=== PATIENT | female | born 1940 | race Caucasian/White ===

== ENCOUNTER 2018-10-15 18:08 | Inpatient (IN) | payer BC ==
--- NOTE | 2018-10-15 19:56 | PDOC ---
History of Present Illness - General Chief Complaint: Shortness of Breath Stated Complaint: DIFFICULTY BREATHING Time Seen by Provider: 10/15/18 19:56 - History of Present Illness Initial Comments: 10/15/18 19:57 78year old female with a significant past medical history of rheumatoid arthritis on chronic steroid use, osteoporosis, hypothyroidism, and DM who presents to the ED with complaints of shortness of breath since earlier today. Was given 1 treatment of solumedrol and duoneb in ems, can breathe much better now. Admits to low grade fever of 100 earlier today, for which she took one tablet of Tylenol. Was told she had PVC's and had to miss an appointment with the inventory representative due to difficulty walking due to her arthritis. Past History - Past Medical History Allergies/Adverse Reactions: Allergies Allergy/AdvReac Type Severity Reaction Status Date / Time No Known Allergies Allergy Verified 10/15/18 18:47 Home Medications: Ambulatory Orders Insulin Lispro [Humalog] 0 unit SQ BID 09/22/15 Levothyroxine [Synthroid -] 25 mcg PO DAILY 09/22/15 Prednisone 5 mg PO DAILY 08/25/17 metFORMIN XR [Glucophage *Xr* -] 500 mg PO DAILY 08/25/17 Tofacitinib Citrate [Xeljanz] 5 mg PO DAILY 10/15/18 Cancer: No (polymyalgia) COPD: Yes CHF: No Diabetes: Yes HTN: Yes Hypercholesterolemia: Yes Thyroid Disease: Yes - Surgical History Orthopedic Surgery: Yes (LT "CLUB FOOT") - Immunization History Immunization Up to Date: Yes (FLU PNA) - Suicide/Smoking/Psychosocial Hx Smoking Status: Yes Smoking History: Never smoked Have you smoked in the past 12 months: No Number of Cigarettes Smoked Daily: 10 Information on smoking cessation initiated: No 'Breaking Loose' booklet given: 09/22/15 Hx Alcohol Use: No Drug/Substance Use Hx: No Substance Use Type: None Hx Substance Use Treatment: No Review of Systems - Review of Systems Able to Perform ROS?: Yes Is the patient limited Pashto proficient: No Constitutional: Yes: Chills HEENTM: No: Symptoms Reported Respiratory: Yes: See HPI Cardiac (ROS): No: Symptoms Reported ABD/GI: No: Symptoms Reported : No: Symptoms Reported Musculoskeletal: Yes: Other (left leg chronically atrophied. ) Integumentary: No: Symptoms Reported Neurological: No: Symptoms reported Endocrine: No: See HPI All Other Systems: Reviewed and Negative *Physical Exam - Vital Signs Last Vital Signs Temp Pulse Resp BP Pulse Ox 98.8 F 77 16 132/67 98 10/15/18 18:08 10/15/18 18:08 10/15/18 18:08 10/15/18 18:08 10/15/18 18:08 - Physical Exam General Appearance: Yes: Nourished, Appropriately Dressed. No: Apparent Distress HEENT: positive: EOMI, MELINDA, Normal ENT Inspection Neck: negative: Tender Respiratory/Chest: positive: Lungs Clear, Normal Breath Sounds. negative: Chest Tender, Respiratory Distress Cardiovascular: positive: Regular Rhythm, Regular Rate, S1, S2 Vascular Pulses: Dorsalis-Pedis (R): 2+, Doralis-Pedis (L): 2+ Gastrointestinal/Abdominal: positive: Normal Bowel Sounds, Soft. negative: Tender Musculoskeletal: positive: Normal Inspection Extremity: positive: Normal Capillary Refill, Normal Inspection Integumentary: positive: Normal Color, Dry, Warm Neurologic: positive: Fully Oriented, Alert, Normal Mood/Affect, Normal Response Moderate Sedation - Procedure Monitoring Vital Signs: Procedure Monitoring Vital Signs Temperature 98.8 F 10/15/18 18:08 Pulse Rate 77 10/15/18 18:08 Respiratory Rate 16 10/15/18 18:08 Blood Pressure 132/67 10/15/18 18:08 O2 Sat by Pulse Oximetry (%) 98 10/15/18 18:08 ED Treatment Course - LABORATORY CBC & Chemistry Diagram: 10/15/18 20:41 10/15/18 20:41 Medical Decision Making - Medical Decision Making 10/15/18 21:24 copd exacerbation vs CHF exacerbation vs pna vs PE 10/15/18 21:27 [place] much better after treatment but not at baseline yet. Will repeat duoneb, basic labs, cxr. Will send bnp to assess for possible chf exacebation. 10/15/18 22:27 CXR: mild basilar atelectasis. Found some incidental, hyponatremia. Will give bolus of ns, reassess and dispo 10/15/18 22:[address] Galan who want the patient admitted for asthma and COPD exacerbation. Patient missed several appointment with PCP due to her arthritis. Will admit. *DC/Admit/Observation/Transfer Diagnosis at time of Disposition: Asthma, COPD exacerbation - Discharge Dispostion Decision to Admit order: Yes - Referrals Referrals: Mayra Galan MD [Primary Care Provider] - - Patient Instructions - Post Discharge Activity
[2018-10-15] MEDS ORDERED: ALBUTEROL SO4 2.5/IPRATROPIUM 0.5 INH SOL 3 ML VIAL.NEB. NEB ONE ×2 (20:06→20:25)
--- NOTE | 2018-10-15 20:08 | PDOC ---
Attending Attestation - HPI HPI: 10/15/18 20:28 The patient is a 78 year old female with a significant past medical history of rheumatoid arthritis osteoporosis (on prednisone daily), hyperthyroidism, diabetes and COPD who presents to the emergency department via EMS with shortness of breath for 1 day. The patient reports that she was at home today when she began to experience difficulty breathing. As per EMS , the patient received steroids and a nebulizer treatment en route to the ED. The patient, on exam, reports that her shortness of breath has been relieved. The patient also reports some left shoulder pain which radiates to her back as well as a low grade fever at home of 100 by which she took tylenol: she states that she experienced some chills secondary to taking the tylenol. The patient denies any other symptoms. She denies any nausea, vomiting diarrhea, constipation or urinary symptoms ,she denies any chest pain, headache or dizziness. She denies any other complaints. Documentation prepared by Nalini Diaz, acting as anesthesiology medical doctor for Rebel King MD. <Nalini Diaz - Last Filed: 10/15/18 20:28> - Resident Resident Name: Kevin Harper - ED Attending Attestation I have performed the following: I have examined & evaluated the patient, The case was reviewed & discussed with the resident, I agree w/resident's findings & plan, Exceptions are as noted - Physicial Exam PE: 10/15/18 21:30 AOx3, NAD but patient visibly concerned about her general health NCAT, PERRL Neck Supple Normal wob, scattered rhonchi that cleared after cough, no retractions SHEN, NFD Extremities w/o swelling, at baseline per patient - Medical Decision Making 10/15/18 21:32 SOB, concerning for pna, copd/asthma exacerbation, consider acs, vascular pathology, less likely chf or pe f/u labs, cxr symptomatic tx dispo per clinical course 10/15/18 23:04 Will admit patient for care of COPD per pcp Dr Galan <Rebel King - Last Filed: 10/15/18 23:05>
[2018-10-15 20:50] LABS: BASO % 0.3 % (0-2.0); HEMATOCRIT 37.5 % (32.4-45.2); HEMOGLOBIN 13.3 GM/dL (10.7-15.3); LYMPH % 8.5 % (8-40); MCH 31.5 pg (25.7-33.7); MCHC 35.4 g/dl (32.0-36.0); MEAN CELL VOLUME 89.2 fl (80-96); MEAN PLT VOLUME 8.2 fl (7.5-11.1); MONO % 2.3 % (3.8-10.2); NEUT % 88.9 % (42.8-82.8); PLATELET COUNT 236 K/MM3 (134-434); RDW 13.7 % (11.6-15.6); WHITE BLOOD COUNT 8.9 K/mm3 (4.0-10.0)
[2018-10-15 21:27] LABS: ALBUMIN 3.6 g/dl (3.4-5.0); CALCIUM 8.9 mg/dL (8.5-10.1); CREATININE 1.2 mg/dL (0.55-1.3); SGPT/ALT 15 U/L (13-61)
[2018-10-15 21:28] LABS: ALK PHOS 118 U/L (45-117); ANION GAP 11 MMOL/L (8-16); BILIRUBIN,TOTAL 0.6 mg/dL (0.2-1); BLOOD UREA NITROGEN 14 mg/dL (7-18); CHLORIDE 99 mmol/L (98-107); CO2 20 mmol/L (21-32); GLUCOSE,RANDOM 167 mg/dL (74-106); POTASSIUM 4.2 mmol/L (3.5-5.1); SGOT/AST 19 U/L (15-37); SODIUM 130 mmol/L (136-145); TOT PROT 7.1 g/dl (6.4-8.2)
[2018-10-15 21:46] LABS: N-TERMINAL BNP 125.9 pg/ml (5-450)
[2018-10-15] MEDS ORDERED: SODIUM CHLORIDE 1,000 ML IV STA (22:00)
[2018-10-16 08:12] VITALS: BMI 32.3
--- NOTE | 2018-10-16 09:38 | HP ---
DATE OF ADMISSION: 10/15/2018 This is a 78-year-old female well known to me for many years, diagnosed to have rheumatoid arthritis, diabetes, COPD, hypothyroidism. She was brought by ambulance yesterday with complaints of short of breath for 2 days. She was in respiratory distress when the ambulance saw her. Ambulance gave her IV steroids and albuterol inhalations. By the time she reached ER, her acute distress improved. Chest x-ray in the ER did not show an infiltrate. Got admitted with a diagnosis of acute exacerbation of COPD and respiratory failure. This morning, patient is feeling better. She is talking without any distress. Her present medications at home are Glucophage 500 mg once a day, 5 mg once a day, prednisone 5 mg once a day, Synthroid 25 mcg once a day, and insulin, Humalog b.i.d. according to the blood sugar, ranges from 5-10. ALLERGIES: She does not have any allergies. PHYSICAL EXAMINATION: Vital Signs: Today, her BP is 130/80, pulse 72, respirations 20, temperature 98. HEENT: Unremarkable. Neck: Supple. Lungs: Bilateral wheeze present. Bilateral crepitations present. Heart: S1, S2 normal. No S3, S4. Abdomen: Soft. Legs: No edema. 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 Neurological: Examination grossly normal. DIAGNOSES: 1. Acute exacerbation of chronic obstructive pulmonary disease. 2. Bronchial asthma. 3. Respiratory failure. 4. Arthritis. 5. Diabetes. 6. Hypothyroidism. PLAN: IV steroids, IV antibiotics. We will hold her for the time being. Insulin according to blood sugar. Will follow. Lakeisha [id number]
[2018-10-16] MEDS ORDERED: PT OWN MED DRAWER 7, Y5N ONE (09:52)
[2018-10-16] MEDS ORDERED: DEXTROSE 5%-WATER - 50 ML IVPB ONE ×2 (09:53→16:53)
[2018-10-16] MEDS ORDERED: PIPERACILLIN/TAZOBACTAM 2.25 GM VIAL IVPB ONE ×2 (09:53→16:53)
[2018-10-16] MEDS: PIPERACILLIN/TAZOB 2.25 GM 2.25 GM in DEXTROSE 5%-WATER - 50 ML IVPB SCH ×2 (10:14→17:08)
[2018-10-16] MEDS: HEPARIN NA (PORCINE) 5,000 UNITS/ML 1ML VIAL SQ SCH ×2 (10:15→21:29)
[2018-10-16] MEDS: HYDROCORTISONE SOD SUCCINATE 100 MG/2 ML VIAL IVPB SCH ×2 (10:15→17:08)
[2018-10-16] MEDS: INSULIN SLIDING SCALE (NOVOLOG) 1 VIAL SQ SCH ×3 (11:39→21:30)
[2018-10-16] MEDS: ALBUTEROL SO4 0.083% IH SOL 2.5 MG/3 ML VIAL.NEB. NEB PRN ×2 (12:14→20:57)
--- NOTE | 2018-10-16 12:14 | EKG ---
Test Reason : Blood Pressure : / mmHG Vent. Rate : 100 BPM Atrial Rate : 100 BPM P-R Int : 134 ms QRS Dur : 064 ms QT Int : 334 ms P-R-T Axes : 049 010 048 degrees QTc Int : 430 ms SINUS RHYTHM WITH PREMATURE VENTRICULAR COMPLEXES OR FUSION COMPLEXES POSSIBLE ANTERIOR INFARCT , AGE UNDETERMINED ABNORMAL ECG WHEN COMPARED WITH ECG OF 22-SEP-2015 14:26, FUSION COMPLEXES ARE NOW PRESENT PREMATURE VENTRICULAR COMPLEXES ARE NOW PRESENT Confirmed by VANESSA DARNELL, FELICITAS ([id number]) on 10/16/2018 12:14:25 PM Referred By: Confirmed By:FELICITAS MENDEZ MD
[2018-10-16] MEDS ORDERED: INSULIN (NOVOLOG) ASPART 100 UNITS/ML 10ML VIAL ONE (21:29)
[2018-10-17] MEDS ORDERED: PIPERACILLIN/TAZOBACTAM 2.25 GM VIAL IVPB ONE (01:19)
[2018-10-17] MEDS ORDERED: DEXTROSE 5%-WATER - 50 ML IVPB ONE (01:20)
[2018-10-17] MEDS: HYDROCORTISONE SOD SUCCINATE 100 MG/2 ML VIAL IVPB SCH ×3 (01:31→17:53)
[2018-10-17] MEDS: PIPERACILLIN/TAZOB 2.25 GM 2.25 GM in DEXTROSE 5%-WATER - 50 ML IVPB SCH (01:31)
[2018-10-17] MEDS: LEVOTHYROXINE NA 25 MCG TABLET (FP) PO SCH (06:10)
[2018-10-17] MEDS: INSULIN SLIDING SCALE (NOVOLOG) 1 VIAL SQ SCH ×4 (06:14→22:35)
[2018-10-17] MEDS ORDERED: PT OWN MED DRAWER 7, Y5N ONE (06:27)
--- NOTE | 2018-10-17 09:56 | PN ---
Progress Note, Physician Chief Complaint: Feels better History of Present Illness: Admitted with exacerbation of Br asthma and COPD - Current Medication List Current Medications: Active Medications Albuterol Sulfate (Ventolin 0.083% Nebulizer Soln -) 1 amp NEB Q6H PRN PRN Reason: SHORT OF BREATH/WHEEZING Last Admin: 10/16/18 20:57 Dose: 1 amp Heparin Sodium (Porcine) (Heparin -) 5,000 unit SQ BID LOCO Last Admin: 10/16/18 21:29 Dose: 5,000 unit Hydrocortisone Sodium Succinate (Solu-Cortef -) 100 mg IVPB Q8H-IV LOCO Last Admin: 10/17/18 01:31 Dose: 100 mg Piperacillin Sod/Tazobactam (Sod 2.25 gm/ Dextrose) 50 mls @ 100 mls/hr IVPB Q8H-IV LOCO Insulin Aspart (Novolog Vial Sliding Scale -) 1 vial SQ ACHS [facility]; Protocol Last Admin: 10/17/18 06:14 Dose: 4 units Levothyroxine Sodium (Synthroid -) 25 mcg PO DAILY@0700 [facility] Last Admin: 10/17/18 06:10 Dose: 25 mcg - Objective Vital Signs: Vital Signs Temperature 98.1 F 10/17/18 06:00 Pulse Rate 79 10/17/18 06:00 Respiratory Rate 20 10/17/18 06:00 Blood Pressure 129/55 L 10/17/18 06:00 O2 Sat by Pulse Oximetry (%) 100 10/16/18 21:00 Constitutional: Yes: Anxious Eyes: Yes: WNL HENT: Yes: WNL Neck: Yes: WNL Cardiovascular: Yes: WNL Respiratory: Yes: WNL, Rhonchi Gastrointestinal: Yes: WNL ...Rectal Exam: Yes: Deferred Genitourinary: Yes: WNL Breast(s): Yes: WNL Musculoskeletal: Yes: Joint Stiffness Edema: No Neurological: Yes: Alert Psychiatric: Yes: Alert Labs: CBC, BMP 10/15/18 20:41 10/15/18 20:41 Assessment/Plan HbA1c 8.[address] Kuo
[2018-10-17] MEDS: HEPARIN NA (PORCINE) 5,000 UNITS/ML 1ML VIAL SQ SCH ×2 (11:46→22:36)
--- NOTE | 2018-10-17 11:47 | CON.CARD ---
Cardiology Consult (text) - Consultation Consultation Note: cardiology covering for Dr Boland cc: sob hpi: 78 f hx copd, RA, DM, hypothyroid, here with sob. Sob past few days. No cp palps dizzy loc pnd orthopnea, le edema. Feels like her copd exacerbations. pmh: per hpi psh: foot surgery social: no tob fam: no premature cad ros: per hpi; no nvd huff vision changes gib hematuria dysuria, +joint pain from RA, no muscle pain meds: Home Medications Medication Instructions Recorded Insulin Lispro [Humalog] 0 unit SQ BID 09/22/15 Levothyroxine [Synthroid -] 25 mcg PO DAILY 09/22/15 Prednisone 5 mg PO DAILY 08/25/17 metFORMIN XR [Glucophage *Xr* -] 500 mg PO DAILY 08/25/17 Tofacitinib Citrate [Xeljanz] 5 mg PO DAILY 10/15/18 pe: Vital Signs Period Temp Pulse Resp BP Sys/Murguia Pulse Ox Last 24 Hr 98.0 F-98.1 F 79-85 20-24 116-135/51-64 100 nad no jvd rrr s1s2 no mrg b/l exp wheeze, nl eff aao3 no le e/c/c abd nt nd pos bs no jaundice diaphoresis pos dp pt no carotid bruits Laboratory Last Values WBC 8.9 K/mm3 (4.0-10.0) 10/15/18 20:41 RBC 4.20 M/mm3 (3.60-5.2) 10/15/18 20:41 Hgb 13.3 GM/dL (10.7-15.3) 10/15/18 20:41 Hct 37.5 % (32.4-45.2) 10/15/18 20:41 MCV 89.2 fl (80-96) 10/15/18 20:41 MCH 31.5 pg (25.7-33.7) 10/15/18 20:41 MCHC 35.4 g/dl (32.0-36.0) 10/15/18 20:41 RDW 13.7 % (11.6-15.6) 10/15/18 20:41 Plt Count 236 K/MM3 (134-434) D 10/15/18 20:41 MPV 8.2 fl (7.5-11.1) 10/15/18 20:41 Absolute Neuts (auto) 7.9 K/mm3 (1.5-8.0) 10/15/18 20:41 Neutrophils % 88.9 % (42.8-82.8) H 10/15/18 20:41 Lymphocytes % 8.5 % (8-40) D 10/15/18 20:41 Monocytes % 2.3 % (3.8-10.2) L 10/15/18 20:41 Eosinophils % 0.0 % (0-4.5) D 10/15/18 20:41 Basophils % 0.3 % (0-2.0) 10/15/18 20:41 Nucleated RBC % 0 % (0-0) 10/15/18 20:41 Sodium 130 mmol/L (136-145) L 10/15/18 20:41 Potassium 4.2 mmol/L (3.5-5.1) 10/15/18 20:41 Chloride 99 mmol/L (98-107) 10/15/18 20:41 Carbon Dioxide 20 mmol/L (21-32) L 10/15/18 20:41 Anion Gap 11 MMOL/L (8-16) 10/15/18 20:41 BUN 14 mg/dL (7-18) 10/15/18 20:41 Creatinine 1.2 mg/dL (0.55-1.3) 10/15/18 20:41 Creat Clearance w eGFR 43.34 (>60) 10/15/18 20:41 POC Glucometer 231 UNITS (80-120) 10/17/18 06:13 Random Glucose 167 mg/dL (74-106) H 10/15/18 20:41 Hemoglobin A1c % 8.1 % (4.2-6.3) H 10/17/18 06:55 Calcium 8.9 mg/dL (8.5-10.1) 10/15/18 20:41 Total Bilirubin 0.6 mg/dL (0.2-1) 10/15/18 20:41 AST 19 U/L (15-37) 10/15/18 20:41 ALT 15 U/L (13-61) 10/15/18 20:41 Alkaline Phosphatase 118 U/L (45-117) H 10/15/18 20:41 Troponin I < 0.02 ng/ml (0.00-0.05) 10/15/18 20:41 B-Natriuretic Peptide 125.9 pg/ml (5-450) 10/15/18 20:41 Total Protein 7.1 g/dl (6.4-8.2) 10/15/18 20:41 Albumin 3.6 g/dl (3.4-5.0) 10/15/18 20:41 TSH 0.92 uIU/ml (0.358-3.74) 10/15/18 20:41 cxr: clear lungs ecg: sr, nl intervals, pvc, no ischemic changes a/p: 78 f hx copd, RA, DM, hypothyroid, here with sob. sob, acute copd exacerbation: -sxs improving with copd tx, cont per PMD/pulm hypothyorid: -stable, tsh wnl abnl ecg, pvcs: -likely benign ectopy, pt w/o palps -tsh wnl -check echo to see lv size/fcn
--- NOTE | 2018-10-17 12:54 | ECHO ---
Name: CODY CONTRERAS Exam:Adult Echocardiogram Study Date: 10/17/2018 11:59 AM Age: 78 yrs Reason For Study: SOB Height: 60 in Weight: 165 lb BSA: 1.7 m2 MMode/2D Measurements & Calculations IVSd: 1.2 cm Ao root diam: 2.3 cm LVIDd: 2.8 cm LA dimension: 2.6 cm LVIDs: 2.1 cm LVPWd: 0.90 cm EDV(Teich): 29.9 ml LAV (MOD-bp): 36.4 ml ESV(Teich): 14.1 ml Doppler Measurements & Calculations MV E max gunner: 103.0 cm/sec TR max gunner: 227.0 cm/sec MV A max gunner: 110.5 cm/sec TR max P.8 mmHg MV E/A: 0.93 MV dec time: 0.13 sec Med Peak E' Gunner: 8.6 cm/sec Med E/e': 12.0 Lat Peak E' Gunner: 8.5 cm/sec Lat E/e': 12.1 Left Ventricle Left ventricular systolic function is normal. Ejection Fraction = 50%. Right Ventricle The right ventricle is normal in size and function. Atria Normal left and right atrial size and function. Mitral Valve There is mild mitral annular calcification. There is no mitral valve stenosis. There is mild mitral regurgitation. Tricuspid Valve The tricuspid valve is not well visualized, but is grossly normal. There is mild tricuspid regurgitat ion. Right ventricular systolic pressure is normal. Aortic Valve The aortic valve opens well. There is mild aortic sclerosis.;. No hemodynamically significant valvula r aortic stenosis. No aortic regurgitation is present. Pulmonic Valve The pulmonic valve is not well seen, but is grossly normal. There is no pulmonic valvular stenosis. Great Vessels The aortic root is normal size. Pericardium/Pleura There is no pericardial effusion. Interpretation Summary Left ventricular systolic function is normal. Ejection Fraction = 50%. The right ventricle is normal in size and function. There is mild mitral annular calcification. There is mild mitral regurgitation. There is mild tricuspid regurgitation. There is mild aortic sclerosis.; There is no pericardial effusion. MD Gabriel *Marcela 10/17/2018 12:54 PM
[2018-10-17] MEDS: ALBUTEROL SO4 0.083% IH SOL 2.5 MG/3 ML VIAL.NEB. NEB PRN (21:05)
[2018-10-17] MEDS ORDERED: SODIUM CHLORIDE 100 ML IVPB ONE (23:03)
[2018-10-17] MEDS ORDERED: AMPICILLIN NA/SULBACTAM NA 1.5 GM VIAL ONE (23:03)
[2018-10-17] MEDS: AMPICILLIN NA/SULBACTAM NA 1.5 GM in SODIUM CHLORIDE 100 ML IVPB SCH (23:07)
[2018-10-18] MEDS: HYDROCORTISONE SOD SUCCINATE 100 MG/2 ML VIAL IVPB SCH ×3 (01:23→17:14)
[2018-10-18] MEDS ORDERED: SODIUM CHLORIDE 100 ML IVPB ONE ×3 (03:41→16:33)
[2018-10-18] MEDS ORDERED: AMPICILLIN NA/SULBACTAM NA 1.5 GM VIAL ONE ×3 (03:41→16:33)
[2018-10-18] MEDS: AMPICILLIN NA/SULBACTAM NA 1.5 GM in SODIUM CHLORIDE 100 ML IVPB SCH ×3 (03:54→18:03)
[2018-10-18] MEDS: INSULIN SLIDING SCALE (NOVOLOG) 1 VIAL SQ SCH ×4 (06:40→21:43)
[2018-10-18] MEDS: LEVOTHYROXINE NA 25 MCG TABLET (FP) PO SCH (06:45)
[2018-10-18] MEDS ORDERED: INSULIN (NOVOLOG) ASPART 100 UNITS/ML 10ML VIAL ONE ×2 (07:02→10:47)
[2018-10-18] MEDS ORDERED: PT OWN MED DRAWER 7, Y5N ONE (07:02)
[2018-10-18] MEDS: HEPARIN NA (PORCINE) 5,000 UNITS/ML 1ML VIAL SQ SCH ×2 (10:53→21:43)
[2018-10-18] MEDS: PIPERACILLIN/TAZOB 2.25 GM 2.25 GM in DEXTROSE 5%-WATER - 50 ML IVPB SCH ×2 (11:09→11:10)
--- NOTE | 2018-10-18 12:19 | PN ---
Progress Note (short form) - Note Progress Note: s: no cp palps dizzy; sob less o: Vital Signs Period Temp Pulse Resp BP Sys/Murguia Pulse Ox Last 24 Hr 97.6 F-98.8 F 56-77 18-22 109-155/51-73 95 nad no jvd rrr s1s2 no mrg b/l exp wheeze, nl eff aao3 no le e/c/c abd nt nd pos bs no jaundice diaphoresis Current Medications Generic Name Dose Route Start Last Admin Trade Name Freq PRN Reason Stop Dose Admin Albuterol Sulfate 1 amp 10/16/18 09:31 10/17/18 21:05 Ventolin 0.083% Nebulizer Soln - NEB 1 amp Q6H PRN Administration SHORT OF BREATH/WHEEZING Heparin Sodium (Porcine) 5,000 unit 10/16/18 10:00 10/18/18 10:53 Heparin - SQ 5,000 unit BID LOCO Administration Hydrocortisone Sodium Succinate 100 mg 10/16/18 10:00 10/18/18 10:53 Solu-Cortef - IVPB 100 mg Q8H-IV LOCO Administration Ampicillin Sodium/Sulbactam 100 mls @ 200 mls/hr 10/17/18 20:30 10/18/18 11: 54 Sodium 1.5 gm/ Sodium Chloride IVPB 200 mls/hr Q8H-IV LOCO Administration Insulin Aspart 1 vial 10/16/18 11:00 10/18/18 11:57 Novolog Vial Sliding Scale - SQ 4 units ACHS LOCO Administration Protocol Levothyroxine Sodium 25 mcg 10/17/18 07:00 10/18/18 06:45 Synthroid - PO 25 mcg DAILY@0700 LOCO Administration CBC, BMP 10/15/18 20:41 10/15/18 20:41 cxr: clear lungs ecg: sr, nl intervals, pvc, no ischemic changes echo 09/2018: nl lv/rv, mild mr/tr a/p: 78 f hx copd, RA, DM, hypothyroid, here with sob. sob, acute copd exacerbation: -sxs improving with copd tx, cont per PMD/pulm hypothyorid: -stable, tsh wnl abnl ecg, pvcs: -likely benign ectopy, pt w/o palps -tsh wnl -echo unremarkable
--- NOTE | 2018-10-18 13:02 | PN ---
Progress Note, Physician Chief Complaint: Feels better History of Present Illness: Dr Holcomb,s cardiology consult appreciated - Current Medication List Current Medications: Active Medications Albuterol Sulfate (Ventolin 0.083% Nebulizer Soln -) 1 amp NEB Q6H PRN PRN Reason: SHORT OF BREATH/WHEEZING Last Admin: 10/17/18 21:05 Dose: 1 amp Heparin Sodium (Porcine) (Heparin -) 5,000 unit SQ BID LOCO Last Admin: 10/18/18 10:53 Dose: 5,000 unit Hydrocortisone Sodium Succinate (Solu-Cortef -) 100 mg IVPB Q8H-IV LOCO Last Admin: 10/18/18 10:53 Dose: 100 mg Ampicillin Sodium/Sulbactam (Sodium 1.5 gm/ Sodium Chloride) 100 mls @ 200 mls/ hr IVPB Q8H-IV LOCO Last Admin: 10/18/18 11:54 Dose: 200 mls/hr Insulin Aspart (Novolog Vial Sliding Scale -) 1 vial SQ ACHS [facility]; Protocol Last Admin: 10/18/18 11:57 Dose: 4 units Levothyroxine Sodium (Synthroid -) 25 mcg PO DAILY@0700 [facility] Last Admin: 10/18/18 06:45 Dose: 25 mcg - Objective Vital Signs: Vital Signs Temperature 98.8 F 10/18/18 10:00 Pulse Rate 71 10/18/18 10:00 Respiratory Rate 18 10/18/18 10:00 Blood Pressure 109/51 L 10/18/18 10:00 O2 Sat by Pulse Oximetry (%) 95 10/17/18 21:00 Constitutional: Yes: No Distress Eyes: Yes: WNL HENT: Yes: WNL Neck: Yes: WNL Cardiovascular: Yes: WNL Respiratory: Yes: WNL, Rales Gastrointestinal: Yes: WNL ...Rectal Exam: Yes: Deferred Genitourinary: Yes: WNL Breast(s): Yes: WNL Musculoskeletal: Yes: WNL Edema: No Neurological: Yes: Alert Psychiatric: Yes: Alert Labs: CBC, BMP 10/15/18 20:41 10/15/18 20:41 Assessment/Plan Rpt Xray chest Xray Metamucil for constipation
[2018-10-18] MEDS: PSYLLIUM 5.85 GM PACKET PO SCH (14:55)
[2018-10-19] MEDS ORDERED: AMPICILLIN NA/SULBACTAM NA 1.5 GM VIAL ONE ×4 (01:57→17:07)
[2018-10-19] MEDS ORDERED: SODIUM CHLORIDE 100 ML IVPB ONE ×3 (01:57→17:08)
[2018-10-19] MEDS: AMPICILLIN NA/SULBACTAM NA 1.5 GM in SODIUM CHLORIDE 100 ML IVPB SCH ×3 (02:11→19:30)
[2018-10-19] MEDS: HYDROCORTISONE SOD SUCCINATE 100 MG/2 ML VIAL IVPB SCH ×3 (02:57→17:17)
[2018-10-19] MEDS: LEVOTHYROXINE NA 25 MCG TABLET (FP) PO SCH (06:03)
[2018-10-19] MEDS: INSULIN SLIDING SCALE (NOVOLOG) 1 VIAL SQ SCH ×4 (06:04→21:49)
[2018-10-19] MEDS ORDERED: INSULIN (NOVOLOG) ASPART 100 UNITS/ML 10ML VIAL ONE ×2 (07:13→17:52)
[2018-10-19] MEDS ORDERED: PT OWN MED DRAWER 7, Y5N ONE (07:14)
[2018-10-19] MEDS: PSYLLIUM 5.85 GM PACKET PO SCH (09:10)
[2018-10-19] MEDS: HEPARIN NA (PORCINE) 5,000 UNITS/ML 1ML VIAL SQ SCH ×2 (09:10→21:50)
--- NOTE | 2018-10-19 12:25 | PN ---
Progress Note, Physician Chief Complaint: C/O constipation History of Present Illness: Admitted with exacerbation of COPD and Ac bronchitis Feels better - Current Medication List Current Medications: Active Medications Albuterol Sulfate (Ventolin 0.083% Nebulizer Soln -) 1 amp NEB Q6H PRN PRN Reason: SHORT OF BREATH/WHEEZING Last Admin: 10/17/18 21:05 Dose: 1 amp Heparin Sodium (Porcine) (Heparin -) 5,000 unit SQ BID LOCO Last Admin: 10/19/18 09:10 Dose: 5,000 unit Hydrocortisone Sodium Succinate (Solu-Cortef -) 40 mg IVPB Q8H LOCO Ampicillin Sodium/Sulbactam (Sodium 1.5 gm/ Sodium Chloride) 100 mls @ 200 mls/ hr IVPB Q8H-IV LOCO Last Admin: 10/19/18 10:07 Dose: 200 mls/hr Insulin Aspart (Novolog Vial Sliding Scale -) 1 vial SQ ACHS [facility]; Protocol Last Admin: 10/19/18 11:48 Dose: 4 units Levothyroxine Sodium (Synthroid -) 25 mcg PO DAILY@0700 [facility] Last Admin: 10/19/18 06:03 Dose: 25 mcg Magnesium Hydroxide (Milk Of Magnesia -) 30 ml PO ONCE ONE Stop: 10/19/18 12:20 Psyllium Hydrophilic Mucilloid (Metamucil (Sugar-Free) -) 5.85 gm PO DAILY [facility] Last Admin: 10/19/18 09:10 Dose: 5.85 gm - Objective Vital Signs: Vital Signs Temperature 98.2 F 10/19/18 09:09 Pulse Rate 62 10/19/18 09:09 Respiratory Rate 18 10/19/18 09:09 Blood Pressure 119/65 10/19/18 09:09 O2 Sat by Pulse Oximetry (%) 94 L 10/19/18 09:21 Constitutional: Yes: No Distress Eyes: Yes: WNL HENT: Yes: WNL Neck: Yes: WNL Cardiovascular: Yes: WNL Respiratory: Yes: Rales Gastrointestinal: Yes: Normal Bowel Sounds ...Rectal Exam: Yes: Deferred Genitourinary: Yes: WNL Breast(s): Yes: WNL Edema: No Labs: CBC, BMP 10/15/18 20:41 10/15/18 20:41 - ....Imaging X-ray: Report Reviewed Assessment/Plan Milk of mag for constipation Reduce solucotef
[2018-10-19] MEDS ORDERED: MAGNESIUM HYDROX 2400MG/30ML ORAL SUSPENSION 30 ML CUP PO ONE (14:00)
[2018-10-20] MEDS ORDERED: AMPICILLIN NA/SULBACTAM NA 1.5 GM VIAL ONE ×3 (01:02→17:12)
[2018-10-20] MEDS ORDERED: SODIUM CHLORIDE 100 ML IVPB ONE ×3 (01:03→17:12)
[2018-10-20] MEDS: AMPICILLIN NA/SULBACTAM NA 1.5 GM in SODIUM CHLORIDE 100 ML IVPB SCH ×3 (01:28→17:30)
[2018-10-20] MEDS: HYDROCORTISONE SOD SUCCINATE 100 MG/2 ML VIAL IVPB SCH ×3 (02:05→17:29)
[2018-10-20] MEDS: LEVOTHYROXINE NA 25 MCG TABLET (FP) PO SCH (06:04)
[2018-10-20] MEDS: INSULIN SLIDING SCALE (NOVOLOG) 1 VIAL SQ SCH ×4 (06:04→22:31)
[2018-10-20] MEDS ORDERED: INSULIN (NOVOLOG) ASPART 100 UNITS/ML 10ML VIAL ONE ×2 (06:29→17:12)
[2018-10-20] MEDS ORDERED: PT OWN MED DRAWER 7, Y5N ONE ×2 (06:30→09:27)
--- NOTE | 2018-10-20 09:01 | PN ---
Progress Note, Physician Chief Complaint: Cough and SOB gone History of Present Illness: Admitted with exacerbation of COPD and acute bronchitis On IV anibiotics and IV steroids - Current Medication List Current Medications: Active Medications Albuterol Sulfate (Ventolin 0.083% Nebulizer Soln -) 1 amp NEB Q6H PRN PRN Reason: SHORT OF BREATH/WHEEZING Last Admin: 10/17/18 21:05 Dose: 1 amp Heparin Sodium (Porcine) (Heparin -) 5,000 unit SQ BID [facility] Last Admin: 10/19/18 21:50 Dose: 5,000 unit Hydrocortisone Sodium Succinate (Solu-Cortef -) 40 mg IVPB Q8H-IV LOCO Last Admin: 10/20/18 02:05 Dose: 40 mg Ampicillin Sodium/Sulbactam (Sodium 1.5 gm/ Sodium Chloride) 100 mls @ 200 mls/ hr IVPB Q8H-IV LOCO Last Admin: 10/20/18 01:28 Dose: 200 mls/hr Insulin Aspart (Novolog Vial Sliding Scale -) 1 vial SQ ACHS [facility]; Protocol Last Admin: 10/20/18 06:04 Dose: Not Given Levothyroxine Sodium (Synthroid -) 25 mcg PO DAILY@0700 [facility] Last Admin: 10/20/18 06:04 Dose: 25 mcg Psyllium Hydrophilic Mucilloid (Metamucil (Sugar-Free) -) 5.85 gm PO DAILY [facility] Last Admin: 10/19/18 09:10 Dose: 5.85 gm - Objective Vital Signs: Vital Signs Temperature 97.6 F 10/20/18 06:06 Pulse Rate 48 L 10/20/18 06:06 Respiratory Rate 20 10/20/18 06:06 Blood Pressure 142/62 10/20/18 06:06 O2 Sat by Pulse Oximetry (%) 98 10/19/18 21:00 Constitutional: Yes: No Distress Eyes: Yes: WNL HENT: Yes: WNL Neck: Yes: WNL Cardiovascular: Yes: WNL Respiratory: Yes: WNL Gastrointestinal: Yes: Normal Bowel Sounds ...Rectal Exam: Yes: Deferred Genitourinary: Yes: WNL Breast(s): Yes: WNL Musculoskeletal: Yes: WNL Extremities: Yes: WNL Edema: No Integumentary: Yes: WNL ...Motor Strength: WNL Psychiatric: Yes: Alert Labs: CBC, BMP 12/26/18 20:41 10/15/18 20:41 Assessment/Plan Stable Continue same trt
[2018-10-20] MEDS: HEPARIN NA (PORCINE) 5,000 UNITS/ML 1ML VIAL SQ SCH ×2 (09:36→21:47)
[2018-10-20] MEDS: PSYLLIUM 5.85 GM PACKET PO SCH (09:36)
--- NOTE | 2018-10-20 15:20 | PN ---
Progress Note (short form) - Note Progress Note: s: no cp palps dizzy; sob less o: Vital Signs Period Temp Pulse Resp BP Sys/Murguia Pulse Ox Last 24 Hr 97.6 F-98.2 F 48-71 19-20 124-142/50-66 98 nad no jvd rrr s1s2 no mrg b/l exp wheeze, nl eff aao3 no le e/c/c abd nt nd pos bs no jaundice diaphoresis Current Medications Generic Name Dose Route Start Last Admin Trade Name Freq PRN Reason Stop Dose Admin Albuterol Sulfate 1 amp 10/16/18 09:31 10/17/18 21:05 Ventolin 0.083% Nebulizer Soln - NEB 1 amp Q6H PRN Administration SHORT OF BREATH/WHEEZING Heparin Sodium (Porcine) 5,000 unit 10/16/18 10:00 10/20/18 09:36 Heparin - SQ 5,000 unit BID LOCO Administration Hydrocortisone Sodium Succinate 40 mg 10/19/18 18:00 10/20/18 09:36 Solu-Cortef - IVPB 40 mg Q8H-IV LOCO Administration Ampicillin Sodium/Sulbactam 100 mls @ 200 mls/hr 10/17/18 20:30 10/20/18 09: 37 Sodium 1.5 gm/ Sodium Chloride IVPB 200 mls/hr Q8H-IV LOCO Administration Insulin Aspart 1 vial 10/16/18 11:00 10/20/18 12:57 Novolog Vial Sliding Scale - SQ 4 units ACHS [facility] Administration Protocol Levothyroxine Sodium 25 mcg 10/17/18 07:00 10/20/18 06:04 Synthroid - PO 25 mcg DAILY@0700 LOCO Administration Psyllium Hydrophilic Mucilloid 5.85 gm 10/18/18 13:15 10/20/18 09:36 Metamucil (Sugar-Free) - PO 5.85 gm DAILY LOCO Administration CBC, BMP 10/15/18 20:41 10/15/18 20:41 cxr: clear lungs ecg: sr, nl intervals, pvc, no ischemic changes echo 09/2018: nl lv/rv, mild mr/tr a/p: 78 f hx copd, RA, DM, hypothyroid, here with sob. sob, acute copd exacerbation: -sxs improving with copd tx, cont per PMD/pulm hypothyorid: -stable, tsh wnl abnl ecg, pvcs: -likely benign ectopy, pt w/o palps -tsh wnl -echo unremarkable cardiac [place] stable
--- NOTE | 2018-10-20 16:33 | EKG ---
Test Reason : Blood Pressure : / mmHG Vent. Rate : 099 BPM Atrial Rate : 099 BPM P-R Int : 130 ms QRS Dur : 062 ms QT Int : 334 ms P-R-T Axes : 042 005 044 degrees QTc Int : 428 ms SINUS RHYTHM WITH OCCASIONAL PREMATURE VENTRICULAR COMPLEXES POSSIBLE ANTERIOR INFARCT (CITED ON OR BEFORE 15-OCT-2018) ABNORMAL ECG WHEN COMPARED WITH ECG OF 15-OCT-2018 18:34, NO SIGNIFICANT CHANGE WAS FOUND Confirmed by EMANUEL DARNELL, JOE ([id number]) on 10/20/2018 4:32:53 PM Referred By: Confirmed By:JOE CASTELLANOS MD
[2018-10-21] MEDS ORDERED: SODIUM CHLORIDE 100 ML IVPB ONE ×2 (01:47→10:22)
[2018-10-21] MEDS ORDERED: AMPICILLIN NA/SULBACTAM NA 1.5 GM VIAL ONE ×2 (01:47→10:22)
[2018-10-21] MEDS: AMPICILLIN NA/SULBACTAM NA 1.5 GM in SODIUM CHLORIDE 100 ML IVPB SCH ×2 (01:53→11:06)
[2018-10-21] MEDS: HYDROCORTISONE SOD SUCCINATE 100 MG/2 ML VIAL IVPB SCH ×2 (01:53→10:33)
[2018-10-21] MEDS: LEVOTHYROXINE NA 25 MCG TABLET (FP) PO SCH (06:11)
[2018-10-21] MEDS: INSULIN SLIDING SCALE (NOVOLOG) 1 VIAL SQ SCH ×2 (06:15→11:32)
[2018-10-21] MEDS: PSYLLIUM 5.85 GM PACKET PO SCH (10:43)
[2018-10-21] MEDS: HEPARIN NA (PORCINE) 5,000 UNITS/ML 1ML VIAL SQ SCH (10:43)
--- NOTE | 2018-10-21 10:45 | DS ---
Physical Examination Vital Signs: Vital Signs Temperature 98.7 F 10/21/18 10:00 Pulse Rate 74 10/21/18 10:00 Respiratory Rate 18 10/21/18 10:00 Blood Pressure 154/57 L 10/21/18 10:00 O2 Sat by Pulse Oximetry (%) 98 10/20/18 20:11 Findings/Remarks: Admitted with exacerbation of COPD and Ac bronchitis ,treated with IV steroids and IV antibiotics Improved ,DC home on PO prednisone to be tapered in one week Constitutional: Yes: No Distress Eyes: Yes: WNL HENT: Yes: WNL Neck: Yes: WNL Cardiovascular: Yes: WNL Respiratory: Yes: WNL Gastrointestinal: Yes: WNL ...Rectal Exam: Yes: Deferred Musculoskeletal: Yes: WNL Neurological: Yes: Alert Labs: CBC, BMP 10/15/18 20:41 10/15/18 20:41 Discharge Summary Reason For Visit: ACUTE EXACERBATION OF CHRONIC OBSTUCTIVE PULMONARY Current Active Problems Asthma (Acute) COPD exacerbation (Acute) - Instructions Referrals: Mayra Galan MD [Primary Care Provider] - - Home Medications Comprehensive Discharge Medication List: Ambulatory Orders Insulin Lispro [Humalog] 0 unit SQ BID 09/22/15 Levothyroxine [Synthroid -] 25 mcg PO DAILY 09/22/15 Prednisone 5 mg PO DAILY 08/25/17 metFORMIN XR [Glucophage *Xr* -] 500 mg PO DAILY 08/25/17 Tofacitinib Citrate [Xeljanz] 5 mg PO DAILY 10/15/18
[2018-10-21] MEDS ORDERED: INSULIN (NOVOLOG) ASPART 100 UNITS/ML 10ML VIAL ONE (11:16)
[2018-10-21 14:19] VITALS: BP 144/62; PULSE 76; TEMP 98.3
== END 2018-10-21 14:28 | disposition home or self-care (01) | DRG 191 ==
LOC: JER 18:08 → JERBED 22:31 → J5S 10-16 03:40
PROVIDERS: ADMIT Internal Medicine; ATTEND Internal Medicine
DX: J44.1 Chronic obstructive pulmonary disease with (acute) exacerbation (principal); E87.1 Hypo-osmolality and hyponatremia; J98.11 Atelectasis; J20.9 Acute bronchitis, unspecified; J44.0 Chronic obstructive pulmonary disease with (acute) lower respiratory infection; I10 Essential (primary) hypertension; E11.9 Type 2 diabetes mellitus without complications; Z79.84 Long term (current) use of oral hypoglycemic drugs; Z79.4 Long term (current) use of insulin; E03.9 Hypothyroidism, unspecified; M06.9 Rheumatoid arthritis, unspecified; M81.0 Age-related osteoporosis without current pathological fracture; E78.5 Hyperlipidemia, unspecified; K59.00 Constipation, unspecified
CPT/HCPCS: 36415; 71045-TC-FY; 71046-TC-FY; 74019-TC-FY; 80053; 82962; 83036; 83880; 84443; 84484; 85025; 93005; 93010; 93306-TC; 94640; 97116-GP; 97161-GP; 99283-25; J1644; J7030

== ENCOUNTER 2018-12-19 19:43 | Inpatient (IN) | payer BC, OTHER ==
--- NOTE | 2018-12-19 20:00 | PDOC ---
History of Present Illness - General Chief Complaint: Pain, Acute Stated Complaint: NECK,SHOULDER,KNEE PAIN LEG WEAKNESS Time Seen by Provider: 12/19/18 19:59 History Source: Patient, Family (Daughters present at bedside) Exam Limitations: No Limitations - History of Present Illness Initial Comments: HPI: 78 y/o female presenting to [facility] ER complaining of multiple areas of pain. Pt has a h/o of diabetic neuropathy and rheumatoid arthritis. Right shoulder pain worsening over the course of the day. States she fell against a wall while in the bathroom earlier today but did not fall to the ground or pass out. Now has difficulty abducting the right shoulder. Also complaining of left sided neck pain with burning sensation. Also complaining of pain to bilateral wrists, hands , knees, and feet. States the pain is similar to neuropathy and RA pain in past. Has tried PO Tylenol without relief. Pt follows with log peeler, Dr. oGnzalez. Has not followed up since July 2018. Pt was on infusion therapy but it was stopped after she was admitted to the hospital for pneumonia/COPD exacerbation in September 2018. Restarted taking Xeljanz a few days ago. PCP: Dr. Galan Past History - Past Medical History Allergies/Adverse Reactions: Allergies Allergy/AdvReac Type Severity Reaction Status Date / Time No Known Allergies Allergy Verified 12/19/18 20:04 Home Medications: Ambulatory Orders Insulin Lispro [Humalog] 0 unit SQ BID 09/22/15 Levothyroxine [Synthroid -] 25 mcg PO DAILY 09/22/15 Prednisone 5 mg PO DAILY 08/25/17 metFORMIN XR [Glucophage *Xr* -] 500 mg PO DAILY 08/25/17 Tofacitinib Citrate [Xeljanz] 5 mg PO DAILY 10/15/18 Cancer: No (polymyalgia) COPD: Yes CHF: No Diabetes: Yes HTN: Yes Hypercholesterolemia: Yes Thyroid Disease: Yes - Surgical History Orthopedic Surgery: Yes (LT "CLUB FOOT") - Immunization History Immunization Up to Date: Yes (FLU PNA) - Suicide/Smoking/Psychosocial Hx Smoking Status: Yes Smoking History: Never smoked Have you smoked in the past 12 months: No Number of Cigarettes Smoked Daily: 10 'Breaking Loose' booklet given: 09/22/15 Hx Alcohol Use: No Drug/Substance Use Hx: No Substance Use Type: None Hx Substance Use Treatment: No Review of Systems - Review of Systems Able to Perform ROS?: Yes Comments:: In addition to that documented in the HPI above, the additional ROS was obtained : Constitutional: Denies fevers or chills Eyes: Denies vision changes ENMT: Denies sore throat CV: Denies chest pain Resp: Denies SOB GI: Denies vomiting or diarrhea : Denies painful urination MSK: Per HPI Skin: Denies new rashes Neuro: Per HPI Endocrine: Denies polyuria Heme: Denies bleeding or bruising *Physical Exam - Physical Exam Comments: Constitutional: Non-toxic elderly adult female in no acute distress but obvious discomfort. Found semi-fowlers on hospital bed. Alert and oriented x4. Answered all questions appropriately and completely. Speech was non-labored, non- pressured. Head: Normocephalic. No obvious external signs of trauma. Eyes: Sclerae white. Ears: Hearing grossly intact. Nose: No nasal discharge. Neck: Supple, trachea is midline. Diffuse pain to palpation. No midline c-spine tenderness or step off. Cardiovascular / Chest: Regular rate and regular rhythm. No murmur, rubs, clicks, or gallops. Peripheral pulses: radial pulses full. Respiratory: Breathing unlabored. Equal chest rise and fall. Clear to auscultation bilaterally. No stridor, no wheezing, no rhonchi. Neuro: Alert and oriented. Moving all four extremities spontaneously. MSK: Diffuse pain to palpation in right shoulder with limited active and passive ROM secondary to pain. No obvious gross deformity. Symmetrical when compared to left. No warmth. Skin: Warm, dry, and intact. Psych: Affect: appropriate. Mood: normal. ED Treatment Course - LABORATORY CBC & Chemistry Diagram: 12/19/18 22:11 12/19/18 22:11 Medical Decision Making - Medical Decision Making *Reviewed vital signs, nursing notes, and prior visit documentation (if available). 78 y/o female with multiple areas of pain. Restarted RA medication a few days ago after stopping for several months. Possible injury to right shoulder. Afebrile. Vitals unremarkable for tachycardia or hypotension. Physical exam as described above. Low suspicion for septic joint or other infectious process. Suspect likely RA flair with overlying diabetic neuropathy. Will obtain plain films of right shoulder and right humerus. Will obtain cervical spine CT given RA history and burning sensation in neck. Ordered Tylenol and lidoderm patch for pain control. Ordered zofran for nausea. No dislocation or fracture to right shoulder or arm per ED wet read. Radiology report to follow. Cervical spine CT revealed inflammatory changes when compared to previous study from 2017. No gross disc herniation or canal stenosis. 12/19/18 22:11 ED Attending reassessed pt, who continues to report pain. Will order PO Ultram. Will discuss admission for RA flair and pain control with Dr. Galan. Admission labs ordered. 22:[address] Galan. Verbally appraised of the pts HPI, ED course, and current plan of management. Will admit pt to his service on med/surg on observation. Will continue to follow CBC and basic. Will order UA and urine culture as pt has pain and is on prednisone. Pt requested straight cath for urine collection as she does not think she can walk to the bathroom and does not want to try to use a bedpan. Pt then declined cath. Will attempt to collect urine on bed joyce. CBC revealed leukocytosis. Likely secondary to prednisone usage and reactionary to pain/RA flair. BMP unremarkable for significant electrolyte derangement. *DC/Admit/Observation/Transfer Diagnosis at time of Disposition: Acute rheumatoid arthritis - Discharge Dispostion Condition at time of disposition: Fair Decision to Admit order: Yes - Referrals - Patient Instructions - Post Discharge Activity
[2018-12-19] MEDS ORDERED: ONDANSETRON 4 MG/2 ML VIAL ONE (20:39)
[2018-12-19] MEDS ORDERED: LIDOCAINE 5% TOPICAL PATCH TP ONE (20:46)
[2018-12-19] MEDS ORDERED: ONDANSETRON 4 MG/2 ML VIAL IVPUSH ONE (20:46)
[2018-12-19] MEDS ORDERED: ACETAMINOPHEN 1000 MG/100 ML VIAL (NON FORMULARY) IVPB ONE (20:46)
[2018-12-19] MEDS ORDERED: ACETAMINOPHEN INJECTION 100 ML IVPB ONE (20:47)
[2018-12-19] MEDS ORDERED: LIDOCAINE 5% TOPICAL PATCH ONE (20:52)
--- NOTE | 2018-12-19 21:05 | PDOC ---
Attending Attestation - HPI HPI: 12/19/18 21:20 The patient is a 78 year old female, with a significant PMH of rheumatoid arthritis, COPD, thyroid disorder and diabetes, who presents to the emergency department with neck pain and bilateral shoulder pain for 2 weeks. The patient states she bumped her right shoulder earlier today which worsened her shoulder pain prompting the ED visit. The patient states she recently restarted her infusion medications for RA and is on steroids as well. The patient denies chest pain, shortness of breath, headache and dizziness. Denies fever, chills, nausea, vomit, diarrhea and constipation. Denies dysuria, frequency, urgency and hematuria. Allergies: NKA Documentation prepared by Dario Watters, acting as medical technician for Jonnie Nogueira MD. - Physicial Exam PE: 12/19/18 21:21 GENERAL: Awake, alert, and fully oriented, in no acute distress HEAD: No signs of trauma EYES: PERRLA, EOMI, sclera anicteric, conjunctiva clear ENT: Auricles normal inspection, hearing grossly normal, nares patent, oropharynx clear without exudates. Moist mucosa NECK: (+) Cervical spine discomfort to palpation. Normal ROM, supple, no lymphadenopathy, JVD, or masses LUNGS: Breath sounds equal, clear to auscultation bilaterally. No wheezes, and no crackles HEART: Regular rate and rhythm, normal S1 and S2, no murmurs, rubs or gallops ABDOMEN: Soft, nontender, normoactive bowel sounds. No guarding, no rebound. No masses EXTREMITIES: (+) Diffuse bilateral upper shoulder pain. (+) Right shoulder pain , ROM limited secondary to pain. 2+ radial pulses. Sensation intact throughout. No edema. No clubbing or cyanosis. No cords or erythema. NEUROLOGICAL: Cranial nerves II through XII grossly intact. Normal speech. SKIN: Warm, Dry, normal turgor, no rashes or lesions noted. <Dario Watters - Last Filed: 12/19/18 21:31> - Resident Resident Name: Ridge Keene - ED Attending Attestation I have performed the following: I have examined & evaluated the patient, The case was reviewed & discussed with the resident, I agree w/resident's findings & plan, Exceptions are as noted - Medical Decision Making 12/19/18 21:02 A portion of this note was documented by scribe services under my direction. I have reviewed the details of the note, within reason, and agree with the documentation with the following case summary and management plan written by me. Patient treated in the ED. Nursing notes are reviewed and incorporated into the medical decision-making. Vital signs reviewed. Peripheral IV access obtained by the nurse, laboratory studies are drawn and sent, reviewed and interpreted by myself. Vital Signs Temp Pulse Resp BP Pulse Ox 99.3 F 85 18 128/80 100 12/19/18 19:43 12/19/18 19:43 12/19/18 19:43 12/19/18 19:43 12/19/18 19:43 78 year old female with past medical history rheumatoid arthritis, prednisone, thyroid disorder, diabetes presents with neck and right shoulder pain. The patient was recently admitted several months ago for COPD exacerbation. She recently restarted her infusion medications for rheumatoid arthritis and is on steroids as well. For last 2 weeks, patient is been endorsing neck and bilateral trapezius muscle discomfort without trauma. Today, the patient had potentially bumped her right shoulder and now has excruciating the shoulder pain. The patient takes this may potentially be related to her return arthritis. Typically she takes acetaminophen but noted no relief. No fevers or chills. Patient reports some burning like chronic pain in her lower extremities. She was told that she has peripheral neuropathy. I suspect patient likely has acute on chronic rheumatoid arthritis pain. However , given the competitions potentially related to rheumatoid arthritis, we'll obtain CT scan of the cervical spine. We'll obtain a right shoulder x-ray to rule out fractures. We'll trial nonnarcotic pain medications initially to attempt control pain. Reassess. 12/19/18 22:32 CAT scan demonstrates interval development of a marked narrowing of the left atlantooccipital joint which is likely inflammatory arthritis. Also noticed several small cortical defect along C6-C7. Pt with persistent pain. Will be admitting to Dr. Galan. <Jonnie Nogueira - Last Filed: 12/23/18 11:09> Heart Score/ECG Review #1 ECG reviewed & interpreted by me at: 23:05 12/19/18 23:10 NSR 91, no std/renae, normal axis, normal intervals, occasional PVC, QTC 440 msec <Jonnie Nogueira - Last Filed: 12/23/18 11:09>
[2018-12-19] MEDS ORDERED: LIDOCAINE PATCH REMOVAL MC SCH (22:00)
[2018-12-19] MEDS ORDERED: traMADol HCL 50 MG TABLET PO ONE (22:06)
[2018-12-19] MEDS ORDERED: traMADol HCL 50 MG TABLET ONE (22:14)
[2018-12-19 22:17] LABS: BASO % 0.4 % (0-2.0); EOS % 0.4 % (0-4.5); HEMATOCRIT 40.7 % (32.4-45.2); HEMOGLOBIN 13.8 GM/dL (10.7-15.3); LYMPH % 15.1 % (8-40); MCH 30.7 pg (25.7-33.7); MCHC 33.9 g/dl (32.0-36.0); MEAN CELL VOLUME 90.5 fl (80-96); MEAN PLT VOLUME 9.3 fl (7.5-11.1); MONO % 5.8 % (3.8-10.2); NEUT % 78.3 % (42.8-82.8); PLATELET COUNT 407 K/MM3 (134-434); RBC 4.49 M/mm3 (3.60-5.2); RDW 14.3 % (11.6-15.6); WHITE BLOOD COUNT 18.7 K/mm3 (4.0-10.0)
[2018-12-19] MEDS ORDERED: GABAPENTIN 100 MG CAPSULE (FP) PO ONE (23:09)
[2018-12-19] MEDS ORDERED: GABAPENTIN 100 MG CAPSULE (FP) ONE (23:11)
[2018-12-19 23:50] LABS: ANION GAP 13 MMOL/L (8-16); BLOOD UREA NITROGEN 19 mg/dL (7-18); CALCIUM 9.5 mg/dL (8.5-10.1); CHLORIDE 102 mmol/L (98-107); CO2 19 mmol/L (21-32); GLUCOSE,RANDOM 163 mg/dL (74-106); POTASSIUM 4.6 mmol/L (3.5-5.1); SODIUM 134 mmol/L (136-145)
[2018-12-20 05:16] VITALS: BMI 28.9
[2018-12-20 05:54] LABS: URINE APPEARANCE CLEAR; URINE BILIRUBIN NEGATIVE (<2.0 mg/dL); URINE COLOR YELLOW; URINE GLUCOSE (UA) NEGATIVE (NEGATIVE); URINE KETONE TRACE (NEGATIVE); URINE LEUK ESTERASE TRACE (NEGATIVE); URINE NITRITE NEGATIVE (NEGATIVE); URINE PROTEIN NEGATIVE (NEGATIVE)
[2018-12-20 06:12] LABS: EPI CELLS RARE /HPF (FEW); URINE MUCUS RARE
[2018-12-20] MEDS: INSULIN SLIDING SCALE (NOVOLOG) 1 VIAL SQ SCH ×2 (06:55→17:01)
[2018-12-20] MEDS: LEVOTHYROXINE NA 25 MCG TABLET (FP) PO SCH (06:56)
[2018-12-20] MEDS ORDERED: LIDOCAINE PATCH REMOVAL MC ONE (09:00)
[2018-12-20] MEDS: ACETAMINOPHEN 325 MG TABLET (FP) PO PRN (09:38)
[2018-12-20] MEDS: oxyCODONE HCL 5 MG TABLET PO PRN (09:39)
--- NOTE | 2018-12-20 09:56 | HP ---
DATE OF ADMISSION: 12/19/2018 DATE OF DICTATION: 12/20/2018 HISTORY: This is a 78-year-old female known to have rheumatoid arthritis who came to the emergency room yesterday with complaints of pain in the neck and upper arm. Also has cough. In the ER she had an x-ray of the shoulder, humerus, and CT of the cervical spine. There was no acute fracture. This morning she is still complaining of pain right shoulder and neck. Also has a cough. PHYSICAL EXAMINATION: Vital Signs: Her blood pressure is 130/80, pulse 72, respirations 20. HEENT: Unremarkable. Neck: Supple. Lungs: Clear. Heart: S1, S2 normal. Abdomen: Soft. Extremities: Legs, no edema. Range of motion of right shoulder is restricted. Her left leg there is some erythema noted. Neurologic: Grossly normal. IMPRESSION: 1. Acute exacerbation of chronic obstructive pulmonary disease. 2. Acute bronchitis. 3. Rheumatoid arthritis. PLAN: We will start her on IV antibiotics. Continue her present medications. We will follow. Lakeisha [id number]
[2018-12-20] MEDS ORDERED: predniSONE 5 MG TABLET (UD) PO SCH (10:00)
[2018-12-20] MEDS: predniSONE 20 MG TABLET (UD) PO SCH ×2 (10:04→21:50)
[2018-12-20] MEDS: RANITIDINE HCL 150 MG TABLET (FP) PO SCH ×2 (10:04→21:50)
[2018-12-20] MEDS: CEFAZOLIN 1 GM/D5W 1 GM/50 ML BAG IVPB SCH ×2 (10:04→17:01)
[2018-12-21] MEDS: CEFAZOLIN 1 GM/D5W 1 GM/50 ML BAG IVPB SCH ×3 (01:33→17:19)
[2018-12-21] MEDS: INSULIN SLIDING SCALE (NOVOLOG) 1 VIAL SQ SCH ×2 (06:06→17:18)
[2018-12-21] MEDS: LEVOTHYROXINE NA 25 MCG TABLET (FP) PO SCH (06:07)
[2018-12-21 07:48] LABS: HEMATOCRIT 34.7 % (32.4-45.2); HEMOGLOBIN 11.9 GM/dL (10.7-15.3); MCH 30.6 pg (25.7-33.7); MCHC 34.3 g/dl (32.0-36.0); MEAN PLT VOLUME 8.6 fl (7.5-11.1); PLATELET COUNT 330 K/MM3 (134-434); RBC 3.89 M/mm3 (3.60-5.2); RDW 14.1 % (11.6-15.6); WHITE BLOOD COUNT 11.8 K/mm3 (4.0-10.0)
[2018-12-21 08:13] LABS: ALBUMIN 2.5 g/dl (3.4-5.0); ALK PHOS 107 U/L (45-117); ANION GAP 10 MMOL/L (8-16); BILIRUBIN,TOTAL 0.3 mg/dL (0.2-1); BLOOD UREA NITROGEN 20 mg/dL (7-18); CALCIUM 8.8 mg/dL (8.5-10.1); CHLORIDE 99 mmol/L (98-107); CO2 23 mmol/L (21-32); CREATININE 1.4 mg/dL (0.55-1.3); GLUCOSE,RANDOM 170 mg/dL (74-106); POTASSIUM 4.4 mmol/L (3.5-5.1); SGOT/AST 6 U/L (15-37); SGPT/ALT 8 U/L (13-61); SODIUM 132 mmol/L (136-145); TOT PROT 7.4 g/dl (6.4-8.2)
[2018-12-21] MEDS: predniSONE 20 MG TABLET (UD) PO SCH ×2 (10:14→21:00)
[2018-12-21] MEDS: RANITIDINE HCL 150 MG TABLET (FP) PO SCH ×2 (10:14→21:00)
[2018-12-21] MEDS: oxyCODONE HCL 5 MG TABLET PO PRN ×2 (10:14→21:10)
[2018-12-21] MEDS: ACETAMINOPHEN 325 MG TABLET (FP) PO PRN ×2 (10:15→21:12)
[2018-12-21 10:48] LABS: ERYTHROCYTE SEDIMENTATION RATE 96 mm/hr (0-30)
--- NOTE | 2018-12-21 13:06 | PN ---
Progress Note, Physician Chief Complaint: C/O constipation Also C/O neck pain - Current Medication List Current Medications: Active Medications Acetaminophen (Tylenol -) 325 mg PO Q6H PRN PRN Reason: PAIN LEVEL 6-10 Last Admin: 12/21/18 10:15 Dose: 325 mg Cefazolin Sodium (Ancef 1 Gm Premixed Ivpb -) 1 gm in 50 mls @ 100 mls/hr IVPB Q8H-IV [facility] Last Admin: 12/21/18 10:14 Dose: 100 mls/hr Insulin Aspart (Novolog Vial Sliding Scale -) 1 vial SQ BIDAC [facility]; Protocol Last Admin: 12/21/18 06:06 Dose: 5 units Levothyroxine Sodium (Synthroid -) 25 mcg PO DAILY@0700 [facility] Last Admin: 12/21/18 06:07 Dose: 25 mcg Metformin HCl (Glucophage Xr -) 500 mg PO DAILY@0700 [facility] Last Admin: 12/21/18 06:07 Dose: 500 mg Oxycodone HCl (Roxicodone -) 5 mg PO Q6H PRN PRN Reason: PAIN LEVEL 6-10 Last Admin: 12/21/18 10:14 Dose: 5 mg Prednisone (Deltasone -) 20 mg PO BID [facility] Last Admin: 12/21/18 10:14 Dose: 20 mg Ranitidine HCl (Zantac -) 150 mg PO BID [facility] Last Admin: 12/21/18 10:14 Dose: 150 mg - Objective Vital Signs: Vital Signs Temperature 98.6 F 12/21/18 10:10 Pulse Rate 80 12/21/18 10:10 Respiratory Rate 20 12/21/18 10:10 Blood Pressure 136/75 12/21/18 10:10 O2 Sat by Pulse Oximetry (%) 95 12/21/18 09:00 Constitutional: Yes: No Distress Eyes: Yes: WNL HENT: Yes: WNL Neck: Yes: Supple Cardiovascular: Yes: WNL Respiratory: Yes: WNL Gastrointestinal: Yes: Normal Bowel Sounds ...Rectal Exam: Yes: Deferred Breast(s): Yes: WNL Extremities: Yes: Erythema (Lt Foot erethema persists) Labs: CBC, BMP 12/21/18 06:45 12/21/18 06:45 Assessment/Plan will do carotid doppler studies
[2018-12-21] MEDS ORDERED: INSULIN (NOVOLOG) ASPART 100 UNITS/ML 10ML VIAL SQ ONE (18:30)
[2018-12-21] MEDS: PSYLLIUM 5.85 GM PACKET PO SCH (21:01)
[2018-12-22] MEDS: CEFAZOLIN 1 GM/D5W 1 GM/50 ML BAG IVPB SCH ×3 (01:07→17:51)
[2018-12-22] MEDS: LEVOTHYROXINE NA 25 MCG TABLET (FP) PO SCH (06:08)
[2018-12-22] MEDS: INSULIN SLIDING SCALE (NOVOLOG) 1 VIAL SQ SCH ×2 (06:09→17:51)
--- NOTE | 2018-12-22 09:12 | PN ---
Progress Note, Physician Chief Complaint: Feels better History of Present Illness: Admitted with exacerbation of COPD and cellulites Lt foot - Current Medication List Current Medications: Active Medications Acetaminophen (Tylenol -) 325 mg PO Q6H PRN PRN Reason: PAIN LEVEL 6-10 Last Admin: 12/21/18 21:12 Dose: 325 mg Cefazolin Sodium (Ancef 1 Gm Premixed Ivpb -) 1 gm in 50 mls @ 100 mls/hr IVPB Q8H-IV [facility] Last Admin: 12/22/18 01:07 Dose: 100 mls/hr Insulin Aspart (Novolog Vial Sliding Scale -) 1 vial SQ BIDAC [facility]; Protocol Last Admin: 12/22/18 06:09 Dose: 10 units Levothyroxine Sodium (Synthroid -) 25 mcg PO DAILY@0700 [facility] Last Admin: 12/22/18 06:08 Dose: 25 mcg Metformin HCl (Glucophage Xr -) 500 mg PO DAILY@0700 [facility] Last Admin: 12/22/18 06:08 Dose: 500 mg Oxycodone HCl (Roxicodone -) 5 mg PO Q6H PRN PRN Reason: PAIN LEVEL 6-10 Last Admin: 12/21/18 21:10 Dose: 5 mg Prednisone (Deltasone -) 20 mg PO BID [facility] Last Admin: 12/21/18 21:00 Dose: 20 mg Psyllium Hydrophilic Mucilloid (Metamucil (Sugar-Free) -) 5.85 gm PO BID [facility] Last Admin: 12/21/18 21:01 Dose: 5.85 gm Ranitidine HCl (Zantac -) 150 mg PO BID [facility] Last Admin: 12/21/18 21:00 Dose: 150 mg - Objective Vital Signs: Vital Signs Temperature 97.9 F 12/22/18 08:54 Pulse Rate 99 H 12/22/18 08:54 Respiratory Rate 20 12/22/18 08:55 Blood Pressure 113/61 12/22/18 08:54 O2 Sat by Pulse Oximetry (%) 97 12/22/18 08:55 Constitutional: Yes: No Distress Eyes: Yes: WNL HENT: Yes: WNL Neck: Yes: WNL Cardiovascular: Yes: WNL Respiratory: Yes: WNL Gastrointestinal: Yes: Normal Bowel Sounds ...Rectal Exam: Yes: Deferred Extremities: Yes: Deformity Edema: No Neurological: Yes: Alert Labs: CBC, BMP 12/21/18 06:45 12/21/18 06:45 Assessment/Plan Reduce steroids
[2018-12-22] MEDS: predniSONE 10 MG TABLET (UD) PO SCH ×2 (11:40→22:21)
[2018-12-22] MEDS: PSYLLIUM 5.85 GM PACKET PO SCH ×2 (11:40→22:22)
[2018-12-22] MEDS: GABAPENTIN 300 MG CAPSULE (FP) PO SCH ×2 (11:40→22:21)
[2018-12-22] MEDS: RANITIDINE HCL 150 MG TABLET (FP) PO SCH ×2 (11:41→22:22)
[2018-12-22] MEDS: oxyCODONE HCL 5 MG TABLET PO PRN (15:29)
[2018-12-22] MEDS: ACETAMINOPHEN 325 MG TABLET (FP) PO PRN (15:30)
[2018-12-23] MEDS: CEFAZOLIN 1 GM/D5W 1 GM/50 ML BAG IVPB SCH ×3 (02:34→17:49)
[2018-12-23] MEDS: INSULIN SLIDING SCALE (NOVOLOG) 1 VIAL SQ SCH ×2 (06:22→16:38)
[2018-12-23] MEDS: LEVOTHYROXINE NA 25 MCG TABLET (FP) PO SCH (06:24)
[2018-12-23] MEDS ORDERED: INSULIN (NOVOLOG) ASPART 100 UNITS/ML 10ML VIAL ONE (06:39)
--- NOTE | 2018-12-23 09:10 | PN ---
Progress Note, Physician Chief Complaint: Feels better - Current Medication List Current Medications: Active Medications Acetaminophen (Tylenol -) 325 mg PO Q6H PRN PRN Reason: PAIN LEVEL 6-10 Last Admin: 12/22/18 15:30 Dose: 325 mg Gabapentin (Neurontin -) 300 mg PO BID [facility] Last Admin: 12/22/18 22:21 Dose: 300 mg Cefazolin Sodium (Ancef 1 Gm Premixed Ivpb -) 1 gm in 50 mls @ 100 mls/hr IVPB Q8H-IV [facility] Last Admin: 12/23/18 02:34 Dose: 100 mls/hr Insulin Aspart (Novolog Vial Sliding Scale -) 1 vial SQ BIDAC [facility]; Protocol Last Admin: 12/23/18 06:22 Dose: 5 units Levothyroxine Sodium (Synthroid -) 25 mcg PO DAILY@0700 [facility] Last Admin: 12/23/18 06:24 Dose: 25 mcg Metformin HCl (Glucophage Xr -) 500 mg PO DAILY@0700 [facility] Last Admin: 12/23/18 06:24 Dose: 500 mg Prednisone (Deltasone -) 10 mg PO BID [facility] Last Admin: 12/22/18 22:21 Dose: 10 mg Psyllium Hydrophilic Mucilloid (Metamucil (Sugar-Free) -) 5.85 gm PO BID [facility] Last Admin: 12/22/18 22:22 Dose: 5.85 gm Ranitidine HCl (Zantac -) 150 mg PO BID [facility] Last Admin: 12/22/18 22:22 Dose: 150 mg - Objective Vital Signs: Vital Signs Temperature 98.3 F 12/23/18 06:00 Pulse Rate 60 12/23/18 06:00 Respiratory Rate 18 12/23/18 06:00 Blood Pressure 154/65 12/23/18 06:00 O2 Sat by Pulse Oximetry (%) 95 12/22/18 21:00 Constitutional: Yes: No Distress Eyes: Yes: WNL HENT: Yes: WNL Neck: Yes: WNL Cardiovascular: Yes: WNL Respiratory: Yes: WNL Gastrointestinal: Yes: Normal Bowel Sounds ...Rectal Exam: Yes: Deferred Genitourinary: Yes: WNL Extremities: Yes: Deformity Peripheral Pulses WNL: Yes Neurological: Yes: Alert Psychiatric: Yes: Alert Labs: CBC, BMP 12/21/18 06:45 12/21/18 06:45 Assessment/Plan Continue same trt
[2018-12-23] MEDS: RANITIDINE HCL 150 MG TABLET (FP) PO SCH ×2 (09:54→22:10)
[2018-12-23] MEDS: PSYLLIUM 5.85 GM PACKET PO SCH ×2 (09:54→22:10)
[2018-12-23] MEDS: predniSONE 10 MG TABLET (UD) PO SCH ×2 (09:54→22:10)
[2018-12-23] MEDS: GABAPENTIN 300 MG CAPSULE (FP) PO SCH ×2 (09:54→22:10)
--- NOTE | 2018-12-23 13:52 | EKG ---
Test Reason : Blood Pressure : / mmHG Vent. Rate : 075 BPM Atrial Rate : 075 BPM P-R Int : 144 ms QRS Dur : 072 ms QT Int : 392 ms P-R-T Axes : 046 017 034 degrees QTc Int : 437 ms SINUS RHYTHM WITH SINUS ARRHYTHMIA WITH OCCASIONAL PREMATURE VENTRICULAR COMPLEXES OTHERWISE NORMAL ECG WHEN COMPARED WITH ECG OF 19-DEC-2018 23:05, NONSPECIFIC T WAVE ABNORMALITY NO LONGER EVIDENT IN ANTERIOR LEADS Confirmed by MD Domenico, Charly ([id number]) on 12/23/2018 1:51:52 PM Referred By: Mya JAEGER Confirmed By:Charyl Acuña MD
--- NOTE | 2018-12-23 13:58 | EKG ---
Test Reason : Blood Pressure : / mmHG Vent. Rate : 091 BPM Atrial Rate : 091 BPM P-R Int : 138 ms QRS Dur : 064 ms QT Int : 358 ms P-R-T Axes : 051 010 022 degrees QTc Int : 440 ms SINUS RHYTHM WITH OCCASIONAL PREMATURE VENTRICULAR COMPLEXES OTHERWISE NORMAL ECG WHEN COMPARED WITH ECG OF 15-OCT-2018 18:39, NO SIGNIFICANT CHANGE WAS FOUND Confirmed by MD Domenico, Charly ([id number]) on 12/23/2018 1:57:45 PM Referred By: Confirmed By:Charly Acuña MD
[2018-12-23] MEDS: ACETAMINOPHEN 325 MG TABLET (FP) PO PRN (16:21)
[2018-12-24] MEDS: CEFAZOLIN 1 GM/D5W 1 GM/50 ML BAG IVPB SCH ×2 (02:41→09:49)
[2018-12-24] MEDS: INSULIN SLIDING SCALE (NOVOLOG) 1 VIAL SQ SCH (06:18)
[2018-12-24] MEDS: LEVOTHYROXINE NA 25 MCG TABLET (FP) PO SCH (06:19)
--- NOTE | 2018-12-24 09:12 | DS ---
Physical Examination Vital Signs: Vital Signs Temperature 97.8 F 12/24/18 06:00 Pulse Rate 68 12/24/18 06:00 Respiratory Rate 20 12/24/18 06:00 Blood Pressure 155/66 12/24/18 06:00 O2 Sat by Pulse Oximetry (%) 96 12/23/18 21:00 Findings/Remarks: Admitted with exacerbation of COPD and cellulites Lt foot Treated with IV antibiotics ,improved Constitutional: Yes: No Distress Eyes: Yes: WNL HENT: Yes: WNL Neck: Yes: WNL Cardiovascular: Yes: WNL Respiratory: Yes: WNL Gastrointestinal: Yes: WNL ...Rectal Exam: Yes: Deferred Extremities: Yes: Other (Left foot cellulitis improved) Psychiatric: Yes: Alert Labs: CBC, BMP 12/21/18 06:45 12/21/18 06:45 Discharge Summary Reason For Visit: ACUTE RHEUMATOID ARTHRITIS Current Active Problems Acute rheumatoid arthritis (Acute) Condition: Fair - Instructions Referrals: Mayra Galan MD [Primary Care Provider] - - Home Medications Comprehensive Discharge Medication List: Ambulatory Orders Insulin Lispro [Humalog] 0 unit SQ BID 09/22/15 Levothyroxine [Synthroid -] 25 mcg PO DAILY 09/22/15 Prednisone 5 mg PO DAILY 08/25/17 metFORMIN XR [Glucophage *Xr* -] 500 mg PO DAILY 08/25/17 Tofacitinib Citrate [Xeljanz] 5 mg PO DAILY 10/15/18
[2018-12-24] MEDS: RANITIDINE HCL 150 MG TABLET (FP) PO SCH (09:48)
[2018-12-24] MEDS: PSYLLIUM 5.85 GM PACKET PO SCH (09:48)
[2018-12-24] MEDS: predniSONE 10 MG TABLET (UD) PO SCH (09:48)
[2018-12-24] MEDS: GABAPENTIN 300 MG CAPSULE (FP) PO SCH (09:49)
[2018-12-24 10:24] VITALS: BP 148/58; PULSE 84; TEMP 97.4
== END 2018-12-24 14:49 | disposition home or self-care (01) | DRG 191 ==
LOC: JER 19:43 → JERBED 22:29 → J7W 12-20 00:57 → OBSVTOIN 12-22 09:03
PROVIDERS: ADMIT Internal Medicine; ATTEND Internal Medicine
DX: J44.1 Chronic obstructive pulmonary disease with (acute) exacerbation (principal); L03.116 Cellulitis of left lower limb; M06.9 Rheumatoid arthritis, unspecified; D72.829 Elevated white blood cell count, unspecified; E11.40 Type 2 diabetes mellitus with diabetic neuropathy, unspecified; J44.9 Chronic obstructive pulmonary disease, unspecified; J20.9 Acute bronchitis, unspecified; I10 Essential (primary) hypertension
CPT/HCPCS: 36415; 72125-TC; 73030-TC-RT-FY; 73060-TC-RT-FY; 80048; 80053; 81003; 81015; 82962; 83036; 84443; 85025; 85027; 85651; 87086; 93005; 93010; 93880-TC; 97116-GP; 97161-GP; 99282-25; G0378; J0131

== ENCOUNTER 2019-02-12 13:06 | Inpatient (IN) | payer OTHER ==
--- NOTE | 2019-02-12 13:39 | PDOC ---
History of Present Illness - General Chief Complaint: Wound Stated Complaint: SENT BY PCP Time Seen by Provider: 02/12/19 13:38 - History of Present Illness Initial Comments: 02/12/19 14:17 The patient is an 79 year old female with a history of HTN, HLD, DM, COPD who presents for evaluation of redness to the left foot. The patient reports a 1 week history of worsening pain and redness to the left foot. She was prescribed augmentin by her primary care provider over the past 2 days, however reports that the redness is spreading up her left leg and continues to experience pain prompting her presentation to the ED for further evaluation. She otherwise denies fevers, chills, SOB, chest pain, nausea, vomiting, abdominal pain, or changes with urination or bowel movements. Past History - Past Medical History Allergies/Adverse Reactions: Allergies Allergy/AdvReac Type Severity Reaction Status Date / Time No Known Allergies Allergy Verified 02/12/19 13:10 Home Medications: Ambulatory Orders Insulin Lispro [Humalog] 0 unit SQ BID 09/22/15 Levothyroxine [Synthroid -] 25 mcg PO DAILY 09/22/15 Prednisone 5 mg PO DAILY 08/25/17 metFORMIN XR [Glucophage *Xr* -] 500 mg PO DAILY 08/25/17 Tofacitinib Citrate [Xeljanz] 5 mg PO DAILY 10/15/18 Cancer: No (polymyalgia) COPD: Yes CHF: No Diabetes: Yes HTN: Yes Hypercholesterolemia: Yes Thyroid Disease: Yes - Surgical History Orthopedic Surgery: Yes (LT "CLUB FOOT") - Immunization History Immunization Up to Date: Yes (FLU PNA) - Suicide/Smoking/Psychosocial Hx Smoking Status: Yes Smoking History: Current every day smoker Have you smoked in the past 12 months: No Number of Cigarettes Smoked Daily: 10 Information on smoking cessation initiated: No 'Breaking Loose' booklet given: 09/22/15 Hx Alcohol Use: No Drug/Substance Use Hx: No Substance Use Type: None Hx Substance Use Treatment: No Review of Systems - Review of Systems Comments:: 02/12/19 14:20 Constitutional: No fevers, chills, fatigue, malaise HEENT: No Rhinorrhea, nasal congestion, visual changes Cardiovascular: No chest pain, syncope, palpitations, lightheadedness Respiratory: No Cough, SOB, Hemoptysis, Gastrointestinal: No Abdominal pain, Nausea, Vomiting, Constipation, Diarrhea, Melena Genitourinary: No Dysuria, Frequency, Urgency, Hesitancy, Hematuria, Flank pain Musculoskeletal: Left foot pain. No Myalgia, arthralgia Skin: Erythema to the left foot. No itching, bruising, pallor Neurologic: No Headache, Dizziness, Numbness, Weakness, or Tingling Psychiatric: No Hallucinations. No SI or HI *Physical Exam - Vital Signs Last Vital Signs Temp Pulse Resp BP Pulse Ox 97.8 F 112 H 18 133/69 97 02/12/19 13:10 02/12/19 13:10 02/12/19 13:10 02/12/19 13:10 02/12/19 13:10 - Physical Exam Comments: 02/12/19 14:21 General Appearance: Nourished. No Apparent Distress HEENT: No Pharyngeal Erythema, Tonsillar Exudate, Tonsillar Erythema Neck: No Cervical Lymphadenopathy Respiratory/Chest: Lungs Clear, Normal Breath Sounds. No Crackles, Rales, Rhonchi, Wheezing Cardiovascular: Regular Rhythm, Regular Rate. No Murmur, Gallops, Rubs Gastrointestinal/Abdominal: Normal Bowel Sounds, Soft. 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 2+ edema noted to the right lower extremity. No edema noted to the left lower extremity. Normal Capillary Refill Integumentary: Normal Color, Dry, Warm Neurologic: Fully Oriented, Alert, Normal Mood/Affect, Normal Response, ED Treatment Course - LABORATORY CBC & Chemistry Diagram: 02/12/19 15:24 02/12/19 15:24 Medical Decision Making - Medical Decision Making 02/12/19 14:24 The patient is an 79 year old female with a history of HTN, HLD, DM, COPD who presents for evaluation of redness to the left foot. Given the patient's history and physical exam, it is likely her symptoms are due to a cellulitis that has not responded to outpatient therapy. However, we will obtain a cbc, cmp, lactate, coags, blood cultures, ekg, plain films, dvt US to evaluate further. We will treat with vanc and zosyn here in the ED and continue to monitor and reassess. The patient will likely require admission for further management. 02/12/19 21:59 CBC, cmp, coags are unremarkable. Lactate is elevated to 3.4. DVT US is negative as read by our radiologist. The patient was treated with iv fluids. We discussed the case with the admitting team who accepted the patient for admission. *DC/Admit/Observation/Transfer Diagnosis at time of Disposition: Cellulitis Qualifiers: Site of cellulitis: unspecified site Qualified Code(s): L03.90 - Cellulitis, unspecified - Discharge Dispostion Condition at time of disposition: Stable Decision to Admit order: Yes - Referrals - Patient Instructions - Post Discharge Activity
[2019-02-12] MEDS ORDERED: VANCOMYCIN 1,000 MG in DEXTROSE 5%-WATER - 250 ML IVPB ONE (14:05)
[2019-02-12] MEDS ORDERED: PIPERACILLIN/TAZOB 4.5 GM 4.5 GM in DEXTROSE 5%-WATER 100 ML IVPB ONE (14:05)
--- NOTE | 2019-02-12 14:56 | PDOC ---
Documentation entered by Lissett Toribio SCRIBE, acting as scribe for Nicho Fregoso MD. Nicho Fregoso MD: This documentation has been prepared by the Catarino loo Amanda, SCRIBE, under my direction and personally reviewed by me in its entirety. I confirm that the documentation accurately reflects all work, treatment, procedures, and medical decision making performed by me. Attending Attestation - Resident Resident Name: RochelleCharly - ED Attending Attestation I have performed the following: I have examined & evaluated the patient, The case was reviewed & discussed with the resident, I agree w/resident's findings & plan, Exceptions are as noted - HPI HPI: 02/12/19 14:03 The patient is a 78 year old female, with a significant past medical history of rheumatoid arthritis, COPD, thyroid disorder, HTH, and diabetes, who presents to the emergency department with redness and pain to left foot for about a week. She states she called Dr. Galan and has been taking Augmentin for 2 days, however, reports increased redness to the foot. Denies any F/C. The patient denies chest pain, shortness of breath, headache and dizziness. The patient denies nausea, vomit, diarrhea and constipation. The patient denies dysuria, frequency, urgency and hematuria. Allergies: NKDA - Physicial Exam PE: 02/12/19 14:55 Agree w/ resident exam - Medical Decision Making 02/12/19 14:55 79 F with LLE cellulitis, failing outpt therapy. - Labs - BLE dopplers - Vanc/zosyn 02/12/19 16:40 Lactate >3 IVF bolus ordered
[2019-02-12] MEDS ORDERED: PIPERACILLIN/TAZOB 4.5 GM 4.5 GM/100 ML BAG IVPB ONE (15:06)
[2019-02-12] MEDS ORDERED: VANCOMYCIN 1 GRAM (PRE-DOCKED) 1,000 MG/250 ML BAG IVPB ONE (15:06)
[2019-02-12 15:43] LABS: BASO % 0.4 % (0-2.0); EOS % 1.2 % (0-4.5); HEMATOCRIT 40.7 % (32.4-45.2); HEMOGLOBIN 13.6 GM/dL (10.7-15.3); LYMPH % 20.4 % (8-40); MCH 29.8 pg (25.7-33.7); MCHC 33.5 g/dl (32.0-36.0); MEAN PLT VOLUME 8.8 fl (7.5-11.1); MONO % 4.9 % (3.8-10.2); NEUT % 73.1 % (42.8-82.8); PLATELET COUNT 260 K/MM3 (134-434); RBC 4.57 M/mm3 (3.60-5.2); RDW 15.4 % (11.6-15.6); WHITE BLOOD COUNT 8.4 K/mm3 (4.0-10.0)
[2019-02-12 15:49] LABS: INR 0.88 (0.83-1.09); PROTHROMBIN TIME (PATIENT) 10.4 SEC (9.7-13.0)
[2019-02-12 15:52] LABS: ACTIVATED PTT 28.8 SECONDS (25.2-36.5)
[2019-02-12 15:58] LABS: ALBUMIN 3.8 g/dl (3.4-5.0); ALK PHOS 144 U/L (45-117); ANION GAP 10 MMOL/L (8-16); BILIRUBIN,TOTAL 0.6 mg/dL (0.2-1); BLOOD UREA NITROGEN 12 mg/dL (7-18); CHLORIDE 101 mmol/L (98-107); CO2 24 mmol/L (21-32); CREATININE 1.1 mg/dL (0.55-1.3); GLUCOSE,RANDOM 143 mg/dL (74-106); POTASSIUM 4.7 mmol/L (3.5-5.1); SGOT/AST 18 U/L (15-37); SGPT/ALT 16 U/L (13-61); SODIUM 134 mmol/L (136-145)
[2019-02-12] MEDS ORDERED: SODIUM CHLORIDE 1,000 ML IV STA (16:39)
[2019-02-13 00:46] VITALS: BMI 30.9
[2019-02-13] MEDS ORDERED: DEXTROSE 5%-WATER - 50 ML IVPB ONE ×2 (09:19→16:13)
[2019-02-13] MEDS ORDERED: PIPERACILLIN/TAZOBACTAM 2.25 GM VIAL IVPB ONE ×2 (09:19→16:12)
[2019-02-13] MEDS: GABAPENTIN 300 MG CAPSULE (FP) PO SCH ×2 (09:44→21:38)
[2019-02-13] MEDS: predniSONE 5 MG TABLET (UD) PO SCH (09:44)
--- NOTE | 2019-02-13 09:55 | HP ---
DATE OF ADMISSION: 02/12/2019 DATE OF DICTATION: 02/12/2019 HISTORY OF PRESENT ILLNESS: This is a 78-year-old female known to me for many years. Known to have diabetes, agenesis of the left foot. Came to the emergency room with complaints of fever, redness of the left foot. She was here with similar complaints 2 months ago, so got admitted with the diagnoses of diabetes, rheumatoid arthritis, and cellulitis of the left foot. This morning, she says, after she slept, feeling a little better. She is on multiple medications at home including Synthroid, prednisone, gabapentin, and Humalog according to the coverage according to the blood sugar. PHYSICAL EXAMINATION: Vital Signs: Today, BP 140/80, pulse 100, respirations 20, temperature 98. HEENT: Unremarkable. Neck: Supple. No JVD. Lungs: Clear. Heart: S1, S2 normal. No S3, S4. Abdomen: Soft. Neurological: Examination grossly normal. Extremities: Left foot there is cellulitis on the foot and the agenesis present. LABORATORY REPORTS: WBC 8.4, hemoglobin 13.6, hematocrit 40.7. Chemistry: Electrolytes are normal. Lactic acid when she came in was 3.4. This morning, it is 1.5. Blood sugar is 134, this morning. IMPRESSION: Cellulitis of the foot, diabetes, rheumatoid arthritis, and hypothyroidism. PLAN: Continue present medications. Synthroid, prednisone, gabapentin ordered. IV. Consult . Lakeisha PARADA/[id number]
[2019-02-13] MEDS ORDERED: PIPERACILLIN/TAZOB 2.25 GM 2.25 GM in DEXTROSE 5%-WATER - 50 ML IVPB SCH (10:00)
[2019-02-13] MEDS: PIPERACILLIN/TAZOB 2.25 GM 2.25 GM in DEXTROSE 5%-WATER - 50 ML IVPB SCH ×2 (10:14→18:23)
--- NOTE | 2019-02-13 14:26 | CON.ID ---
Consult Consult Specialty:: infectious diseases Referred by:: dr huffman Reason for Consultation:: cellulitits - History of Present Illness Chief Complaint: swelling and redness of the left leg with rash History of Present Illness: patient very poor historian says she does not know what happened but says her leg is looking better 79 year old female with a history of HTN, HLD, DM, COPD who presents for evaluation of redness to the left foot. The patient reports a 1 week history of worsening pain and redness to the left foot. She was prescribed augmentin by her primary care provider over the past 2 days, however reports that the redness is spreading up her left leg and continues to experience pain prompting her presentation to the ED for further evaluation. She otherwise denies fevers , chills, SOB, chest pain, nausea, vomiting, abdominal pain, or changes with urination or bowel movements. - History Source History Provided By: Patient, Medical Record Limitations to Obtaining History: Poor Historian - Past Medical History ...: No - Alcohol/Substance Use Hx Alcohol Use: No - Smoking History Smoking history: Current every day smoker Have you smoked in the past 12 months: No Aproximately how many cigarettes per day: 10 Home Medications - Allergies Allergies/Adverse Reactions: Allergies Allergy/AdvReac Type Severity Reaction Status Date / Time No Known Allergies Allergy Verified 02/12/19 13:10 - Home Medications Home Medications: Ambulatory Orders Insulin Lispro [Humalog] 0 unit SQ BID 09/22/15 Levothyroxine [Synthroid -] 25 mcg PO DAILY 09/22/15 Prednisone 5 mg PO DAILY 08/25/17 Review of Systems - Review of Systems Constitutional: reports: No Symptoms Eyes: reports: No Symptoms HENT: reports: No Symptoms Neck: reports: No Symptoms Cardiovascular: reports: No Symptoms Respiratory: reports: No Symptoms Gastrointestinal: reports: No Symptoms Genitourinary: reports: No Symptoms Musculoskeletal: reports: Other Integumentary: reports: Change in Color, Erythema, Rash (all left leg with rash on the rt leg) Neurological: reports: No Symptoms Hematology/Lymphatic: reports: No Symptoms Psychiatric: reports: No Symptoms Physical Exam Vital Signs: Vital Signs Temperature 98.9 F 02/13/19 13:31 Pulse Rate 92 H 02/13/19 13:31 Respiratory Rate 18 02/13/19 13:31 Blood Pressure 111/51 L 02/13/19 13:31 O2 Sat by Pulse Oximetry (%) 97 02/13/19 09:00 Constitutional: Yes: Calm, Mild Distress Cardiovascular: Yes: Regular Rate and Rhythm Respiratory: Yes: Regular, CTA Bilaterally Gastrointestinal: Yes: Normal Bowel Sounds, Soft Musculoskeletal: Yes: WNL Extremities: Yes: Erythema, Other (cellulitis with erythema of the left leg) Neurological: Yes: Alert, Oriented Psychiatric: Yes: Alert, Oriented Labs: CBC, BMP 02/12/19 15:24 02/12/19 15:24 Imaging - Results X-ray: Report Reviewed, Image Reviewed Assessment/Plan this patient who had cellulitis for couple of days and tried augmentin without any benefit and also with rash on the leg now admitted to the hospital got vanco and zosyn i also think the rash could be due the drugs i am going to stop zosyn and will continue vanco will see how patient does and then will decide
[2019-02-13] MEDS ORDERED: VANCOMYCIN 1 GRAM (PRE-DOCKED) 1,000 MG/250 ML BAG IVPB SCH (15:00)
[2019-02-13] MEDS: VANCOMYCIN 1 GM PREMIX - 1 GM/200 ML BAG IVPB SCH (17:16)
[2019-02-13] MEDS: INSULIN SLIDING SCALE (NOVOLOG) 1 VIAL SQ SCH (17:22)
[2019-02-14] MEDS ORDERED: DEXTROSE 5%-WATER - 50 ML IVPB ONE (01:43)
[2019-02-14] MEDS ORDERED: PIPERACILLIN/TAZOBACTAM 2.25 GM VIAL IVPB ONE (01:43)
[2019-02-14] MEDS: PIPERACILLIN/TAZOB 2.25 GM 2.25 GM in DEXTROSE 5%-WATER - 50 ML IVPB SCH (01:45)
[2019-02-14] MEDS: INSULIN SLIDING SCALE (NOVOLOG) 1 VIAL SQ SCH ×2 (06:04→16:21)
[2019-02-14] MEDS: LEVOTHYROXINE NA 25 MCG TABLET (FP) PO SCH (06:05)
--- NOTE | 2019-02-14 08:46 | PN ---
Progress Note, Physician Chief Complaint: C/O rash on the legs History of Present Illness: leela Brown ID consult appreciated On Vanco IV. Zosyn on hold - Current Medication List Current Medications: Active Medications Gabapentin (Neurontin -) 300 mg PO BID [facility] Last Admin: 02/13/19 21:38 Dose: 300 mg Vancomycin HCl (Vancomycin 1 Gm Premix -) 1 gm in 200 mls @ 200 mls/hr IVPB Q24H [facility]; Protocol Last Admin: 02/13/19 17:16 Dose: 200 mls/hr Insulin Aspart (Novolog Vial Sliding Scale -) 1 vial SQ BIDAC [facility]; Protocol Last Admin: 02/14/19 06:04 Dose: Not Given Levothyroxine Sodium (Synthroid -) 25 mcg PO DAILY@0700 [facility] Last Admin: 02/14/19 06:05 Dose: 25 mcg Prednisone (Deltasone -) 5 mg PO DAILY [facility] Last Admin: 02/13/19 09:44 Dose: 5 mg - Objective Vital Signs: Vital Signs Temperature 98.1 F 02/14/19 05:50 Pulse Rate 71 02/14/19 05:50 Respiratory Rate 20 02/14/19 05:50 Blood Pressure 104/56 L 02/14/19 05:50 O2 Sat by Pulse Oximetry (%) 94 L 02/13/19 21:00 Constitutional: Yes: Anxious Eyes: Yes: WNL HENT: Yes: WNL Neck: Yes: WNL Cardiovascular: Yes: WNL Respiratory: Yes: Regular Gastrointestinal: Yes: WNL ...Rectal Exam: Yes: Deferred Genitourinary: Yes: WNL Edema: No Integumentary: Yes: Rash Neurological: Yes: Alert Psychiatric: Yes: Alert Labs: CBC, BMP 02/12/19 15:24 02/12/19 15:24 INR, PTT INR 0.88 (0.83-1.09) 02/12/19 15:24 Assessment/Plan Continue same trt
[2019-02-14] MEDS: POLYETHYLENE GLYCOL 3350 119 GM BTL PO SCH ×2 (09:31→21:35)
[2019-02-14] MEDS: TRIAMCINOLONE ACET 0.1% CREAM 15 GM TUBE TP SCH ×2 (09:32→21:35)
[2019-02-14] MEDS: predniSONE 5 MG TABLET (UD) PO SCH (09:32)
[2019-02-14] MEDS: GABAPENTIN 300 MG CAPSULE (FP) PO SCH ×2 (09:34→21:35)
[2019-02-14] MEDS: VANCOMYCIN 1 GM PREMIX - 1 GM/200 ML BAG IVPB SCH (15:39)
--- NOTE | 2019-02-14 17:59 | PN ---
Progress Note, Physician History of Present Illness: Pt seen and examined. Events noted, labs reviewed. Pt is currently afebrile, without acute distress. Still with Lt foot pain, less edema. - Current Medication List Current Medications: Active Medications Gabapentin (Neurontin -) 300 mg PO BID [facility] Last Admin: 02/14/19 09:34 Dose: Not Given Vancomycin HCl (Vancomycin 1 Gm Premix -) 1 gm in 200 mls @ 200 mls/hr IVPB Q24H [facility]; Protocol Last Admin: 02/14/19 15:39 Dose: 200 mls/hr Insulin Aspart (Novolog Vial Sliding Scale -) 1 vial SQ BIDAC [facility]; Protocol Last Admin: 02/14/19 16:21 Dose: 6 units Levothyroxine Sodium (Synthroid -) 25 mcg PO DAILY@0700 [facility] Last Admin: 02/14/19 06:05 Dose: 25 mcg Polyethylene Glycol (Miralax (For Daily Use) -) 17 gm PO BID [facility] Last Admin: 02/14/19 09:31 Dose: 17 grams Prednisone (Deltasone -) 5 mg PO DAILY [facility] Last Admin: 02/14/19 09:32 Dose: 5 mg Triamcinolone Acetonide (Aristocort 0.1% Cream -) 1 applic TP BID [facility] Last Admin: 02/14/19 09:32 Dose: 1 applic - Objective Vital Signs: Vital Signs Temperature 98.2 F 02/14/19 13:49 Pulse Rate 83 02/14/19 13:49 Respiratory Rate 20 02/14/19 13:49 Blood Pressure 126/58 L 02/14/19 13:49 O2 Sat by Pulse Oximetry (%) 95 02/14/19 09:00 Constitutional: Yes: No Distress, Calm Cardiovascular: Yes: Regular Rate and Rhythm Respiratory: Yes: Regular Gastrointestinal: Yes: Normal Bowel Sounds, Soft Extremities: Yes: Erythema, Other (mild Lt foot erythema/edema, no drainage, + chronic deformity, rash on Lt calf) Integumentary: Yes: Rash (LLE) Neurological: Yes: Alert Labs: CBC, BMP 02/12/19 15:24 02/12/19 15:24 INR, PTT INR 0.88 (0.83-1.09) 02/12/19 15:24 Problem List - Problems (1) Cellulitis Code(s): L03.90 - CELLULITIS, UNSPECIFIED Qualifiers: Site of cellulitis: unspecified site Qualified Code(s): L03.90 - Cellulitis , unspecified (2) Acute rheumatoid arthritis Code(s): M06.9 - RHEUMATOID ARTHRITIS, UNSPECIFIED (3) COPD exacerbation Code(s): J44.1 - CHRONIC OBSTRUCTIVE PULMONARY DISEASE W (ACUTE) EXACERBATION Assessment/Plan Lt foot cellulitis LLE rash - Possible allergy to previously given Augmentin -- continue Vancomycin for now monitor for continued improvement
[2019-02-14] MEDS ORDERED: MAGNESIUM HYDROX 2400MG/30ML ORAL SUSPENSION 30 ML CUP PO ONE (18:30)
[2019-02-14] MEDS ORDERED: PT OWN MED DRAWER 7, Y5N ONE (21:12)
[2019-02-14] MEDS ORDERED: INSULIN (NOVOLOG) ASPART 100 UNITS/ML 10ML VIAL ONE (21:13)
[2019-02-15] MEDS: LEVOTHYROXINE NA 25 MCG TABLET (FP) PO SCH (06:02)
[2019-02-15] MEDS: INSULIN SLIDING SCALE (NOVOLOG) 1 VIAL SQ SCH ×2 (06:04→16:17)
[2019-02-15] MEDS: TRIAMCINOLONE ACET 0.1% CREAM 15 GM TUBE TP SCH ×2 (09:49→22:40)
[2019-02-15] MEDS: predniSONE 5 MG TABLET (UD) PO SCH (09:50)
[2019-02-15] MEDS: POLYETHYLENE GLYCOL 3350 119 GM BTL PO SCH ×2 (09:50→22:10)
[2019-02-15] MEDS: GABAPENTIN 300 MG CAPSULE (FP) PO SCH ×2 (09:55→22:09)
[2019-02-15] MEDS ORDERED: DOCUSATE SODIUM 100 MG CAPSULE (FP) PO SCH (10:00)
[2019-02-15] MEDS: ACETAMINOPHEN 325 MG TABLET (FP) PO PRN ×2 (11:02→22:09)
--- NOTE | 2019-02-15 12:10 | PN ---
Progress Note, Physician Chief Complaint: Still C/O constipation Has problems in walking - Current Medication List Current Medications: Active Medications Acetaminophen (Tylenol -) 650 mg PO Q6H PRN PRN Reason: PAIN SCALE 1-5 Last Admin: 02/15/19 11:02 Dose: 650 mg Docusate Sodium (Colace -) 100 mg PO DAILY [facility] Last Admin: 02/15/19 11:02 Dose: 100 mg Gabapentin (Neurontin -) 300 mg PO BID [facility] Last Admin: 02/15/19 09:55 Dose: 300 mg Vancomycin HCl (Vancomycin 1 Gm Premix -) 1 gm in 200 mls @ 200 mls/hr IVPB Q24H [facility]; Protocol Last Admin: 02/14/19 15:39 Dose: 200 mls/hr Insulin Aspart (Novolog Vial Sliding Scale -) 1 vial SQ BIDAC [facility]; Protocol Last Admin: 02/15/19 06:04 Dose: Not Given Levothyroxine Sodium (Synthroid -) 25 mcg PO DAILY@0700 [facility] Last Admin: 02/15/19 06:02 Dose: 25 mcg Polyethylene Glycol (Miralax (For Daily Use) -) 17 gm PO BID [facility] Last Admin: 02/15/19 09:50 Dose: 17 grams Prednisone (Deltasone -) 5 mg PO DAILY [facility] Last Admin: 02/15/19 09:50 Dose: 5 mg Triamcinolone Acetonide (Aristocort 0.1% Cream -) 1 applic TP BID [facility] Last Admin: 02/15/19 09:49 Dose: 1 applic - Objective Vital Signs: Vital Signs Temperature 98.3 F 02/15/19 08:49 Pulse Rate 95 H 02/15/19 08:49 Respiratory Rate 18 02/15/19 08:49 Blood Pressure 129/72 02/15/19 08:49 O2 Sat by Pulse Oximetry (%) 96 02/14/19 21:00 Constitutional: Yes: Anxious Eyes: Yes: WNL HENT: Yes: WNL Neck: Yes: WNL Cardiovascular: Yes: WNL Respiratory: Yes: WNL Gastrointestinal: Yes: WNL ...Rectal Exam: Yes: Deferred Genitourinary: Yes: WNL Musculoskeletal: Yes: Muscle Weakness Edema: No Neurological: Yes: Alert Labs: CBC, BMP 02/12/19 15:24 02/12/19 15:24 INR, PTT INR 0.88 (0.83-1.09) 02/12/19 15:24 Assessment/Plan Fleets enema
[2019-02-15] MEDS ORDERED: MINERAL OIL ENEMA 133 ML ENEMA PR ONE (12:11)
--- NOTE | 2019-02-15 14:13 | PN ---
Progress Note, Physician History of Present Illness: Pt states she is having less pain in Lt foot, edema/erythema improving. Remains afebrile, tolerating antibiotics. - Current Medication List Current Medications: Active Medications Acetaminophen (Tylenol -) 650 mg PO Q6H PRN PRN Reason: PAIN SCALE 1-5 Last Admin: 02/15/19 11:02 Dose: 650 mg Docusate Sodium (Colace -) 100 mg PO DAILY [facility] Last Admin: 02/15/19 11:02 Dose: 100 mg Gabapentin (Neurontin -) 300 mg PO BID [facility] Last Admin: 02/15/19 09:55 Dose: 300 mg Vancomycin HCl (Vancomycin 1 Gm Premix -) 1 gm in 200 mls @ 200 mls/hr IVPB Q24H [facility]; Protocol Last Admin: 02/14/19 15:39 Dose: 200 mls/hr Insulin Aspart (Novolog Vial Sliding Scale -) 1 vial SQ BIDAC [facility]; Protocol Last Admin: 02/15/19 06:04 Dose: Not Given Levothyroxine Sodium (Synthroid -) 25 mcg PO DAILY@0700 [facility] Last Admin: 02/15/19 06:02 Dose: 25 mcg Polyethylene Glycol (Miralax (For Daily Use) -) 17 gm PO BID [facility] Last Admin: 02/15/19 09:50 Dose: 17 grams Prednisone (Deltasone -) 5 mg PO DAILY [facility] Last Admin: 02/15/19 09:50 Dose: 5 mg Triamcinolone Acetonide (Aristocort 0.1% Cream -) 1 applic TP BID [facility] Last Admin: 02/15/19 09:49 Dose: 1 applic - Objective Vital Signs: Vital Signs Temperature 98.3 F 02/15/19 08:49 Pulse Rate 95 H 02/15/19 08:49 Respiratory Rate 18 02/15/19 09:00 Blood Pressure 129/72 02/15/19 08:49 O2 Sat by Pulse Oximetry (%) 96 02/15/19 09:00 Constitutional: Yes: No Distress, Calm Cardiovascular: Yes: Regular Rate and Rhythm Respiratory: Yes: Regular Gastrointestinal: Yes: Normal Bowel Sounds, Soft Extremities: Yes: Erythema (LLE rash improving, less edema/erythema of Lt foot) Neurological: Yes: Alert Labs: CBC, BMP 02/12/19 15:24 02/12/19 15:24 INR, PTT INR 0.88 (0.83-1.09) 02/12/19 15:24 Problem List - Problems (1) Cellulitis Code(s): L03.90 - CELLULITIS, UNSPECIFIED Qualifiers: Site of cellulitis: unspecified site Qualified Code(s): L03.90 - Cellulitis , unspecified (2) Acute rheumatoid arthritis Code(s): M06.9 - RHEUMATOID ARTHRITIS, UNSPECIFIED (3) COPD exacerbation Code(s): J44.1 - CHRONIC OBSTRUCTIVE PULMONARY DISEASE W (ACUTE) EXACERBATION Assessment/Plan Lt foot cellulitis - improving LLE rash - Possible allergy to previously given Augmentin - improving -- will switch to po antibiotics if pt continues to improve -- suggest avoid PCNs
[2019-02-15] MEDS: VANCOMYCIN 1 GM PREMIX - 1 GM/200 ML BAG IVPB SCH (15:21)
[2019-02-15] MEDS: DOCUSATE SODIUM 100 MG CAPSULE (FP) PO SCH (22:09)
[2019-02-16] MEDS: INSULIN SLIDING SCALE (NOVOLOG) 1 VIAL SQ SCH ×2 (06:17→17:05)
[2019-02-16] MEDS: LEVOTHYROXINE NA 25 MCG TABLET (FP) PO SCH (06:18)
[2019-02-16 07:06] LABS: MCH 30.7 pg (25.7-33.7); MCHC 34.2 g/dl (32.0-36.0); MEAN CELL VOLUME 89.8 fl (80-96); MEAN PLT VOLUME 9.1 fl (7.5-11.1); PLATELET COUNT 248 K/MM3 (134-434); RDW 15.5 % (11.6-15.6); WHITE BLOOD COUNT 5.9 K/mm3 (4.0-10.0)
[2019-02-16 07:39] LABS: ALK PHOS 99 U/L (45-117); ANION GAP 6 MMOL/L (8-16); BILIRUBIN,TOTAL 0.4 mg/dL (0.2-1); BLOOD UREA NITROGEN 15 mg/dL (7-18); CALCIUM 9.3 mg/dL (8.5-10.1); CHLORIDE 104 mmol/L (98-107); CO2 28 mmol/L (21-32); CREATININE 0.9 mg/dL (0.55-1.3); GLUCOSE,RANDOM 119 mg/dL (74-106); POTASSIUM 4.4 mmol/L (3.5-5.1); SGOT/AST 14 U/L (15-37); SGPT/ALT 14 U/L (13-61); SODIUM 137 mmol/L (136-145); TOT PROT 6.2 g/dl (6.4-8.2)
--- NOTE | 2019-02-16 09:44 | DS ---
Physical Examination Vital Signs: Vital Signs Temperature 97.9 F 02/16/19 06:01 Pulse Rate 64 02/16/19 06:01 Respiratory Rate 18 02/16/19 06:01 Blood Pressure 141/77 02/16/19 06:01 O2 Sat by Pulse Oximetry (%) 97 02/15/19 21:00 Findings/Remarks: Admitted with cellulitis of the Lt foot Treated with IV zosyn improved. The Lt foot has agenesis,she is also diabetic on insulin coverage Constitutional: Yes: No Distress Eyes: Yes: WNL HENT: Yes: WNL Neck: Yes: WNL Cardiovascular: Yes: WNL, S4 Gastrointestinal: Yes: WNL ...Rectal Exam: Yes: Deferred Renal/: Yes: WNL Extremities: Yes: Deformity Integumentary: Yes: WNL Neurological: Yes: Alert Psychiatric: Yes: Alert Labs: CBC, BMP 02/16/19 06:00 02/16/19 06:00 Discharge Summary Reason For Visit: CELLULITIS Current Active Problems Cellulitis (Acute) Condition: Stable - Instructions - Home Medications Comprehensive Discharge Medication List: Ambulatory Orders Insulin Lispro [Humalog] 0 unit SQ BID 09/22/15 Levothyroxine [Synthroid -] 25 mcg PO DAILY 09/22/15 Prednisone 5 mg PO DAILY 08/25/17
[2019-02-16] MEDS: GABAPENTIN 300 MG CAPSULE (FP) PO SCH ×3 (09:57→22:01)
[2019-02-16] MEDS: predniSONE 5 MG TABLET (UD) PO SCH (09:57)
[2019-02-16] MEDS: DOCUSATE SODIUM 100 MG CAPSULE (FP) PO SCH ×2 (09:58→22:01)
[2019-02-16] MEDS: POLYETHYLENE GLYCOL 3350 119 GM BTL PO SCH ×2 (09:59→22:02)
[2019-02-16] MEDS: TRIAMCINOLONE ACET 0.1% CREAM 15 GM TUBE TP SCH ×2 (10:00→22:02)
--- NOTE | 2019-02-16 11:03 | PN ---
Progress Note, Physician History of Present Illness: stable no new issues leg looks better - Current Medication List Current Medications: Active Medications Acetaminophen (Tylenol -) 650 mg PO Q6H PRN PRN Reason: PAIN SCALE 1-5 Last Admin: 02/15/19 22:09 Dose: 650 mg Docusate Sodium (Colace -) 100 mg PO BID [facility] Last Admin: 02/16/19 09:58 Dose: 100 mg Gabapentin (Neurontin -) 300 mg PO BID [facility] Last Admin: 02/16/19 10:03 Dose: Not Given Vancomycin HCl (Vancomycin 1 Gm Premix -) 1 gm in 200 mls @ 200 mls/hr IVPB Q24H [facility]; Protocol Last Admin: 02/15/19 15:21 Dose: 200 mls/hr Insulin Aspart (Novolog Vial Sliding Scale -) 1 vial SQ BIDAC [facility]; Protocol Last Admin: 02/16/19 06:17 Dose: Not Given Levothyroxine Sodium (Synthroid -) 25 mcg PO DAILY@0700 [facility] Last Admin: 02/16/19 06:18 Dose: 25 mcg Polyethylene Glycol (Miralax (For Daily Use) -) 17 gm PO BID [facility] Last Admin: 02/16/19 09:59 Dose: 17 grams Prednisone (Deltasone -) 5 mg PO DAILY [facility] Last Admin: 02/16/19 09:57 Dose: 5 mg Triamcinolone Acetonide (Aristocort 0.1% Cream -) 1 applic TP BID [facility] Last Admin: 02/16/19 10:00 Dose: 1 applic - Objective Vital Signs: Vital Signs Temperature 98.4 F 02/16/19 10:00 Pulse Rate 94 H 02/16/19 10:00 Respiratory Rate 20 02/16/19 10:00 Blood Pressure 131/67 02/16/19 10:00 O2 Sat by Pulse Oximetry (%) 97 02/15/19 21:00 Constitutional: Yes: No Distress, Calm Cardiovascular: Yes: S1, S2 Respiratory: Yes: Regular, CTA Bilaterally Gastrointestinal: Yes: Normal Bowel Sounds, Soft Musculoskeletal: Yes: WNL Extremities: Yes: Other Integumentary: Yes: Other Neurological: Yes: Alert, Oriented Psychiatric: Yes: Alert, Oriented Labs: CBC, BMP 02/16/19 06:00 02/16/19 06:00 INR, PTT INR 0.88 (0.83-1.09) 02/12/19 15:24 Assessment/Plan Problem List - Problems (1) Cellulitis Code(s): L03.90 - CELLULITIS, UNSPECIFIED Qualifiers: Site of cellulitis: unspecified site Qualified Code(s): L03.90 - Cellulitis , unspecified (2) Acute rheumatoid arthritis Code(s): M06.9 - RHEUMATOID ARTHRITIS, UNSPECIFIED (3) COPD exacerbation Code(s): J44.1 - CHRONIC OBSTRUCTIVE PULMONARY DISEASE W (ACUTE) EXACERBATION Assessment/Plan Lt foot cellulitis - improving LLE rash - Possible allergy to previously given Augmentin - improving patient can be send on doxy 100 mg po bid for 4 days
[2019-02-16] MEDS: VANCOMYCIN 1 GM PREMIX - 1 GM/200 ML BAG IVPB SCH (17:01)
[2019-02-16] MEDS: ACETAMINOPHEN 325 MG TABLET (FP) PO PRN (18:05)
[2019-02-17] MEDS: INSULIN SLIDING SCALE (NOVOLOG) 1 VIAL SQ SCH ×2 (06:15→16:13)
[2019-02-17] MEDS: LEVOTHYROXINE NA 25 MCG TABLET (FP) PO SCH (06:18)
[2019-02-17] MEDS: ACETAMINOPHEN 325 MG TABLET (FP) PO PRN ×2 (08:34→21:22)
[2019-02-17] MEDS: predniSONE 5 MG TABLET (UD) PO SCH (09:26)
[2019-02-17] MEDS: DOCUSATE SODIUM 100 MG CAPSULE (FP) PO SCH ×2 (09:26→21:22)
[2019-02-17] MEDS: TRIAMCINOLONE ACET 0.1% CREAM 15 GM TUBE TP SCH ×2 (09:26→21:22)
[2019-02-17] MEDS: POLYETHYLENE GLYCOL 3350 119 GM BTL PO SCH ×2 (09:27→21:24)
[2019-02-17] MEDS: GABAPENTIN 300 MG CAPSULE (FP) PO SCH ×2 (09:30→21:22)
--- NOTE | 2019-02-17 09:50 | PN ---
Progress Note, Physician - Current Medication List Current Medications: Active Medications Acetaminophen (Tylenol -) 650 mg PO Q6H PRN PRN Reason: PAIN SCALE 1-5 Last Admin: 02/17/19 08:34 Dose: 650 mg Docusate Sodium (Colace -) 100 mg PO BID [facility] Last Admin: 02/17/19 09:26 Dose: 100 mg Gabapentin (Neurontin -) 300 mg PO BID [facility] Last Admin: 02/17/19 09:30 Dose: Not Given Vancomycin HCl (Vancomycin 1 Gm Premix -) 1 gm in 200 mls @ 200 mls/hr IVPB Q24H [facility]; Protocol Last Admin: 02/16/19 17:01 Dose: 200 mls/hr Insulin Aspart (Novolog Vial Sliding Scale -) 1 vial SQ BIDAC [facility]; Protocol Last Admin: 02/17/19 06:15 Dose: Not Given Levothyroxine Sodium (Synthroid -) 25 mcg PO DAILY@0700 [facility] Last Admin: 02/17/19 06:18 Dose: 25 mcg Polyethylene Glycol (Miralax (For Daily Use) -) 17 gm PO BID [facility] Last Admin: 02/17/19 09:27 Dose: 17 grams Prednisone (Deltasone -) 5 mg PO DAILY [facility] Last Admin: 02/17/19 09:26 Dose: 5 mg Triamcinolone Acetonide (Aristocort 0.1% Cream -) 1 applic TP BID [facility] Last Admin: 02/17/19 09:26 Dose: 1 applic - Objective Vital Signs: Vital Signs Temperature 98.7 F 02/17/19 06:00 Pulse Rate 71 02/17/19 06:00 Respiratory Rate 18 02/17/19 06:00 Blood Pressure 139/59 L 02/17/19 06:00 O2 Sat by Pulse Oximetry (%) 96 02/16/19 21:00 Constitutional: Yes: No Distress Eyes: Yes: WNL HENT: Yes: WNL Neck: Yes: WNL Cardiovascular: Yes: WNL Respiratory: Yes: WNL ...Rectal Exam: Yes: WNL Musculoskeletal: Yes: Muscle Weakness Extremities: Yes: Deformity Psychiatric: Yes: Alert Labs: CBC, BMP 02/16/19 06:00 02/16/19 06:00 INR, PTT INR 0.88 (0.83-1.09) 02/12/19 15:24 Assessment/Plan Awaiting insurance approval to transfer to SNF
--- NOTE | 2019-02-17 13:34 | PN ---
Progress Note, Physician - Current Medication List Current Medications: Active Medications Acetaminophen (Tylenol -) 650 mg PO Q6H PRN PRN Reason: PAIN SCALE 1-5 Last Admin: 02/17/19 08:34 Dose: 650 mg Docusate Sodium (Colace -) 100 mg PO BID [facility] Last Admin: 02/17/19 09:26 Dose: 100 mg Gabapentin (Neurontin -) 300 mg PO BID [facility] Last Admin: 02/17/19 09:30 Dose: Not Given Vancomycin HCl (Vancomycin 1 Gm Premix -) 1 gm in 200 mls @ 200 mls/hr IVPB Q24H [facility]; Protocol Last Admin: 02/16/19 17:01 Dose: 200 mls/hr Insulin Aspart (Novolog Vial Sliding Scale -) 1 vial SQ BIDAC [facility]; Protocol Last Admin: 02/17/19 06:15 Dose: Not Given Levothyroxine Sodium (Synthroid -) 25 mcg PO DAILY@0700 [facility] Last Admin: 02/17/19 06:18 Dose: 25 mcg Polyethylene Glycol (Miralax (For Daily Use) -) 17 gm PO BID [facility] Last Admin: 02/17/19 09:27 Dose: 17 grams Prednisone (Deltasone -) 5 mg PO DAILY [facility] Last Admin: 02/17/19 09:26 Dose: 5 mg Triamcinolone Acetonide (Aristocort 0.1% Cream -) 1 applic TP BID [facility] Last Admin: 02/17/19 09:26 Dose: 1 applic - Objective Vital Signs: Vital Signs Temperature 99.5 F 02/17/19 10:00 Pulse Rate 91 H 02/17/19 10:00 Respiratory Rate 18 02/17/19 10:00 Blood Pressure 131/65 02/17/19 10:00 O2 Sat by Pulse Oximetry (%) 97 02/17/19 09:00 Labs: CBC, BMP 02/16/19 06:00 02/16/19 06:00 INR, PTT INR 0.88 (0.83-1.09) 02/12/19 15:24
[2019-02-17] MEDS: DOXYCYCLINE HYCLATE 100 MG CAPSULE PO SCH (17:38)
[2019-02-17] MEDS ORDERED: INSULIN (NOVOLOG) ASPART 100 UNITS/ML 10ML VIAL ONE (20:29)
[2019-02-18] MEDS: INSULIN SLIDING SCALE (NOVOLOG) 1 VIAL SQ SCH (05:59)
[2019-02-18] MEDS: LEVOTHYROXINE NA 25 MCG TABLET (FP) PO SCH (05:59)
[2019-02-18] MEDS: ACETAMINOPHEN 325 MG TABLET (FP) PO PRN (06:01)
[2019-02-18 08:44] VITALS: BP 136/84; PULSE 68; TEMP 97.7
[2019-02-18] MEDS: TRIAMCINOLONE ACET 0.1% CREAM 15 GM TUBE TP SCH (09:28)
[2019-02-18] MEDS: predniSONE 5 MG TABLET (UD) PO SCH (09:28)
[2019-02-18] MEDS: DOXYCYCLINE HYCLATE 100 MG CAPSULE PO SCH (09:28)
[2019-02-18] MEDS: DOCUSATE SODIUM 100 MG CAPSULE (FP) PO SCH (09:28)
[2019-02-18] MEDS: POLYETHYLENE GLYCOL 3350 119 GM BTL PO SCH (09:29)
[2019-02-18] MEDS: GABAPENTIN 300 MG CAPSULE (FP) PO SCH (09:29)
== END 2019-02-18 11:45 | DRG 603 ==
LOC: JER 13:06 → JERBED 16:52 → J7W 22:27
PROVIDERS: ADMIT Internal Medicine; ATTEND Internal Medicine
DX: L03.116 Cellulitis of left lower limb (principal); I10 Essential (primary) hypertension; E11.9 Type 2 diabetes mellitus without complications; Z79.84 Long term (current) use of oral hypoglycemic drugs; Z79.4 Long term (current) use of insulin; E78.5 Hyperlipidemia, unspecified; J44.9 Chronic obstructive pulmonary disease, unspecified; M06.9 Rheumatoid arthritis, unspecified; E03.9 Hypothyroidism, unspecified; F17.210 Nicotine dependence, cigarettes, uncomplicated; K59.00 Constipation, unspecified; L27.1 Localized skin eruption due to drugs and medicaments taken internally; T36.0X5A Adverse effect of penicillins, initial encounter; Y92.89 Other specified places as the place of occurrence of the external cause
CPT/HCPCS: 36415; 73610-TC-RT-FY; 73630-TC-LT; 73630-TC-RT-FY; 80053; 82962; 83036; 83605; 84443; 85025; 85027; 85610; 85730; 87040; 93970-TC; 97116-GP; 97162-GP; 99283-25; J7030

== ENCOUNTER 2021-10-15 20:50 | Emergency (ER) | payer OTHER ==
[2021-10-15 21:06] VITALS: BP 170/78; PULSE 78; TEMP 98; BMI 21.7
[2021-10-15] MEDS ORDERED: CYCLOBENZAPRINE HCL 10 MG TABLET (FP) PO ONE (21:07)
[2021-10-15] MEDS ORDERED: KETOROLAC TROMETHAMINE 30 MG/1 ML VIAL ONE (21:16)
[2021-10-15] MEDS ORDERED: CYCLOBENZAPRINE HCL 10 MG TABLET (FP) ONE (21:16)
[2021-10-15] MEDS ORDERED: KETOROLAC TROMETHAMINE 30 MG/1 ML VIAL IVPUSH ONE (21:16)
[2021-10-15 21:51] LABS: ALBUMIN 3.5 g/dl (3.4-5.0); BILIRUBIN,TOTAL 0.6 mg/dl (0.2-1); CALCIUM 10.1 mg/dl (8.5-10); CREATININE 0.9 mg/dl (0.55-1.3); TOT PROT 7.4 g/dl (6.4-8.2)
[2021-10-15 22:34] LABS: BASO % 0.7 % (0-2.0); EOS % 1.6 % (0-4.5); HEMATOCRIT 39.6 % (32.4-45.2); HEMOGLOBIN 13.4 GM/dL (10.7-15.3); LYMPH % 32.3 % (8-40); MCH 31.7 pg (25.7-33.7); MCHC 33.8 g/dl (32.0-36.0); MEAN CELL VOLUME 93.7 fl (80-96); MEAN PLT VOLUME 7.6 fl (7.5-11.1); NEUT % 59.4 % (42.8-82.8); PLATELET COUNT 439 10^3/uL (134-434); RBC 4.22 M/mm3 (3.60-5.2); RDW 13.5 % (11.6-15.6); WHITE BLOOD COUNT 7.8 K/mm3 (4.0-10.0)
== END 2021-10-16 00:35 | disposition home or self-care (01) ==
LOC: FER 20:50
PROC: 3E033GC Introduction of Other Therapeutic Substance into Peripheral Vein, Percutaneous Approach (ICD-10-PCS; principal; 2021-10-15)
DX: M54.12 Radiculopathy, cervical region (principal)
CPT/HCPCS: 36415; 72125-TC; 80053; 85025; 96374; 99284-25

== ENCOUNTER 2022-04-15 19:32 | Inpatient (IN) | payer OTHER ==
[2022-04-15] MEDS ORDERED: AMPICILLIN NA/SULBACTAM NA 1.5 GM in SODIUM CHLORIDE 100 ML IVPB ONE (19:44)
[2022-04-15] MEDS ORDERED: AMPICILLIN NA/SULBACTAM NA 1.5 GM VIAL ONE (20:22)
[2022-04-15 20:26] LABS: HEMOGLOBIN 13.7 G/dL (10.7-15.3); MCH 32.5 pg (25.7-33.7); MCHC 35.2 g/dl (32.0-36.0); MEAN CELL VOLUME 92.3 fl (80-96); MEAN PLT VOLUME 7.2 fl (7.5-11.1); PLATELET COUNT 409.3 10^3/uL (134-434); RBC 4.22 10^6/uL (3.60-5.2); RDW 13.9 % (11.6-15.6); WHITE BLOOD COUNT 7.8 10^3/uL (4.0-10.8)
[2022-04-15 20:31] LABS: ALBUMIN 3.3 g/dl (3.4-5.0); BILIRUBIN,TOTAL 0.3 mg/dl (0.2-1); CALCIUM 10.2 mg/dl (8.5-10); CREATININE 0.7 mg/dl (0.55-1.3)
[2022-04-15] MEDS ORDERED: ENOXAPARIN NA (PORCINE) 60 MG/0.6 ML DISP.SYRIN SQ SCH (22:15)
[2022-04-15] MEDS ORDERED: POLYETHYLENE GLYCOL (HEALTHYLAX) 3350 17 GM PACKET PO PRN (23:24)
[2022-04-15] MEDS ORDERED: DEXTROSE 5%-NORMAL SALINE 1,000 ML IV SCH (23:30)
[2022-04-15] MEDS ORDERED: ENOXAPARIN NA (PORCINE) 60 MG/0.6 ML DISP.SYRIN SQ ONE (23:38)
[2022-04-16] MEDS ORDERED: AMPICILLIN NA/SULBACTAM NA 1.5 GM VIAL ONE ×4 (05:45→20:09)
[2022-04-16] MEDS ORDERED: SODIUM CHLORIDE 100 ML IVPB ONE ×4 (05:46→20:09)
[2022-04-16] MEDS: ACETAMINOPHEN 325 MG TABLET (FP) PO PRN (05:58)
[2022-04-16] MEDS: AMPICILLIN NA/SULBACTAM NA 1.5 GM in SODIUM CHLORIDE 100 ML IVPB SCH ×4 (05:59→20:48)
[2022-04-16] MEDS: DOCUSATE SODIUM 100 MG CAPSULE (FP) PO SCH ×3 (06:00→21:55)
[2022-04-16] MEDS: INSULIN SLIDING SCALE (NOVOLOG) 1 VIAL SQ SCH ×4 (06:01→22:03)
[2022-04-16] MEDS: LEVOTHYROXINE NA 25 MCG TABLET (FP) PO SCH (06:51)
[2022-04-16 07:59] LABS: INR 0.98 (0.83-1.09); PROTHROMBIN TIME (PATIENT) 11.3 SEC (9.7-13.0)
[2022-04-16 08:02] LABS: ACTIVATED PTT 31.4 SECONDS (25.2-36.5)
[2022-04-16 08:08] LABS: CALCIUM 9.6 mg/dl (8.5-10); CREATININE 0.7 mg/dl (0.55-1.3); MAGNESIUM 1.7 mg/dL (1.8-2.4); PHOSPHOROUS 3.3 mg/dl (2.5-4.9)
[2022-04-16] MEDS ORDERED: MAGNESIUM 1GM/D5W 100ML - 100 ML IVPB IVPB ONE (08:13)
[2022-04-16 09:11] LABS: CHOLESTEROL 240 mg/dl (50-200); HDL CHOLESTEROL 49 mg/dl (40-60); LDL CHOLESTEROL (ONLY DFH) 150 mg/dl (5-100); TRIGLYCERIDES 206 mg/dl (0-150)
[2022-04-16 09:12] LABS: HEMATOCRIT 36.8 % (32.4-45.2); HEMOGLOBIN 12.7 G/dL (10.7-15.3); MCH 31.7 pg (25.7-33.7); MEAN CELL VOLUME 92.1 fl (80-96); WHITE BLOOD COUNT 7.8 10^3/uL (4.0-10.8)
[2022-04-16 09:13] LABS: MCHC 34.4 g/dl (32.0-36.0); MEAN PLT VOLUME 7.6 fl (7.5-11.1); PLATELET COUNT 398.6 10^3/uL (134-434); RDW 13.9 % (11.6-15.6)
[2022-04-16] MEDS: FAMOTIDINE 20 MG TABLET PO SCH ×2 (09:46→21:55)
[2022-04-16] MEDS: predniSONE 5 MG TABLET (UD) PO SCH (09:46)
[2022-04-16] MEDS: GABAPENTIN 300 MG CAPSULE PO SCH (09:46)
[2022-04-16] MEDS: SODIUM CHLORIDE 1,000 ML IV SCH ×2 (09:59→20:48)
[2022-04-16 16:02] VITALS: BMI 46.6
[2022-04-16] MEDS ORDERED: ENOXAPARIN NA (PORCINE) 60 MG/0.6 ML DISP.SYRIN SQ SCH ×2 (21:45→22:53)
[2022-04-17] MEDS ORDERED: AMPICILLIN NA/SULBACTAM NA 1.5 GM VIAL ONE ×4 (01:14→20:06)
[2022-04-17] MEDS ORDERED: SODIUM CHLORIDE 100 ML IVPB ONE ×4 (01:14→20:06)
[2022-04-17] MEDS: AMPICILLIN NA/SULBACTAM NA 1.5 GM in SODIUM CHLORIDE 100 ML IVPB SCH ×4 (03:03→20:33)
[2022-04-17] MEDS: INSULIN SLIDING SCALE (NOVOLOG) 1 VIAL SQ SCH ×4 (06:01→21:39)
[2022-04-17] MEDS: LEVOTHYROXINE NA 25 MCG TABLET (FP) PO SCH (06:05)
[2022-04-17] MEDS: SODIUM CHLORIDE 1,000 ML IV SCH ×2 (10:11→15:11)
[2022-04-17] MEDS: DOCUSATE SODIUM 100 MG CAPSULE (FP) PO SCH ×3 (10:13→23:00)
[2022-04-17] MEDS: ACETAMINOPHEN 325 MG TABLET (FP) PO PRN (10:13)
[2022-04-17] MEDS: GABAPENTIN 300 MG CAPSULE PO SCH (10:13)
[2022-04-17] MEDS: FAMOTIDINE 20 MG TABLET PO SCH ×2 (10:13→21:39)
[2022-04-17] MEDS: predniSONE 5 MG TABLET (UD) PO SCH (10:13)
[2022-04-17] MEDS: ENOXAPARIN NA (PORCINE) 30 MG/0.3 ML DISP.SYRIN SQ SCH ×2 (10:19→21:32)
[2022-04-17] MEDS ORDERED: ATORVASTATIN CA 20 MG TABLET (FP) PO SCH (22:00)
[2022-04-18] MEDS ORDERED: SODIUM CHLORIDE 100 ML IVPB ONE ×4 (01:52→21:25)
[2022-04-18] MEDS ORDERED: AMPICILLIN NA/SULBACTAM NA 1.5 GM VIAL ONE ×4 (01:52→21:25)
[2022-04-18] MEDS: AMPICILLIN NA/SULBACTAM NA 1.5 GM in SODIUM CHLORIDE 100 ML IVPB SCH ×4 (02:31→21:33)
[2022-04-18] MEDS: INSULIN SLIDING SCALE (NOVOLOG) 1 VIAL SQ SCH ×4 (06:01→21:34)
[2022-04-18] MEDS: LEVOTHYROXINE NA 25 MCG TABLET (FP) PO SCH (06:02)
[2022-04-18] MEDS: SODIUM CHLORIDE 1,000 ML IV SCH ×5 (08:33→19:00)
[2022-04-18 09:59] LABS: BASO % 0.7 % (0-2.0); EOS % 1.5 % (0-4.5); HEMATOCRIT 33.2 % (32.4-45.2); HEMOGLOBIN 11.4 GM/dL (10.7-15.3); LYMPH % 29.9 % (8-40); MCH 31.4 pg (25.7-33.7); MCHC 34.2 g/dl (32.0-36.0); MEAN CELL VOLUME 91.7 fl (80-96); MEAN PLT VOLUME 7.5 fl (7.5-11.1); NEUT % 58.9 % (42.8-82.8); PLATELET COUNT 345 10^3/uL (134-434); RBC 3.62 M/mm3 (3.60-5.2); RDW 13.9 % (11.6-15.6); WHITE BLOOD COUNT 6.1 K/mm3 (4.0-10.0)
[2022-04-18 10:33] LABS: BLOOD UREA NITROGEN 7.4 mg/dL (7-18); CALCIUM 9.1 mg/dL (8.5-10.1)
[2022-04-18 10:36] LABS: CREATININE 0.6 mg/dL (0.55-1.3)
[2022-04-18] MEDS: FAMOTIDINE 20 MG TABLET PO SCH ×2 (10:43→21:33)
[2022-04-18] MEDS: predniSONE 5 MG TABLET (UD) PO SCH (10:43)
[2022-04-18] MEDS: GABAPENTIN 300 MG CAPSULE PO SCH (10:43)
[2022-04-18] MEDS: ACETAMINOPHEN 325 MG TABLET (FP) PO PRN ×2 (10:44→21:46)
[2022-04-18] MEDS: DOCUSATE SODIUM 100 MG CAPSULE (FP) PO SCH ×2 (10:58→21:33)
[2022-04-18] MEDS: ENOXAPARIN NA (PORCINE) 30 MG/0.3 ML DISP.SYRIN SQ SCH (10:58)
[2022-04-18] MEDS ORDERED: MIDAZOLAM HCL 2 MG/2 ML SINGLE DOSE VIAL ONE ×2 (12:18→14:40)
[2022-04-18] MEDS ORDERED: HEPARIN NA (PORCINE) 5,000 UNITS/ML 1ML VIAL ONE ×3 (12:19→15:13)
[2022-04-18] MEDS ORDERED: LIDOCAINE HCL 1%, 10 MG/ML (20ML VIAL) INF ONE (13:38)
[2022-04-18] MEDS ORDERED: PROPOFOL 20 ML ONE (14:02)
[2022-04-18] MEDS ORDERED: APIXABAN 5 MG TABLET PO SCH (15:05)
[2022-04-18] MEDS ORDERED: HEPARIN NA (PORCINE) 5,000 UNITS/ML 1ML VIAL IVPUSH PRN ×3 (15:06→15:08)
[2022-04-18] MEDS ORDERED: POLYETHYLENE GLYCOL (HEALTHYLAX) 3350 17 GM PACKET PO PRN (15:09)
[2022-04-18] MEDS ORDERED: HEPARIN INFUSION - 25,000 UNITS/500 ML INFUS.BAG IVPB ONE (15:13)
[2022-04-18] MEDS ORDERED: HEPARIN INFUSION - 25,000 UNITS/500 ML INFUS.BAG IVPB SCH (15:15)
[2022-04-18] MEDS ORDERED: BACITRACIN 15 GM TUBE TOPICAL OINTMENT ONE (15:42)
[2022-04-18] MEDS ORDERED: PROMETHAZINE HCL 25 MG/1 ML VIAL IVPUSH PRN (16:05)
[2022-04-18] MEDS ORDERED: ONDANSETRON 4 MG/2 ML VIAL IVPUSH PRN (16:05)
[2022-04-18] MEDS ORDERED: LACTATED RINGERS SOLUTION 1,000 ML IV SCH (16:15)
[2022-04-18 20:11] LABS: INR 1.04 (0.83-1.09)
[2022-04-18 20:28] LABS: ACTIVATED PTT > 400.0 SECONDS (25.2-36.5)
[2022-04-18] MEDS: ATORVASTATIN CA 20 MG TABLET (FP) PO SCH (21:33)
[2022-04-18 23:01] LABS: BASO % 0.9 % (0-2.0); EOS % 1.1 % (0-4.5); HEMATOCRIT 31.1 % (32.4-45.2); HEMOGLOBIN 10.4 GM/dL (10.7-15.3); LYMPH % 25.9 % (8-40); MCH 30.6 pg (25.7-33.7); MCHC 33.3 g/dl (32.0-36.0); MEAN CELL VOLUME 91.9 fl (80-96); MEAN PLT VOLUME 7.3 fl (7.5-11.1); NEUT % 64.1 % (42.8-82.8); PLATELET COUNT 340 10^3/uL (134-434); RBC 3.39 M/mm3 (3.60-5.2); RDW 13.8 % (11.6-15.6); WHITE BLOOD COUNT 7.5 K/mm3 (4.0-10.0)
[2022-04-18 23:13] LABS: INR 0.99 (0.83-1.09); PROTHROMBIN TIME (PATIENT) 11.4 SEC (9.7-13.0)
[2022-04-18 23:15] LABS: ACTIVATED PTT 47.7 SECONDS (25.2-36.5)
[2022-04-19] MEDS ORDERED: AMPICILLIN NA/SULBACTAM NA 1.5 GM VIAL ONE (03:11)
[2022-04-19] MEDS ORDERED: SODIUM CHLORIDE 100 ML IVPB ONE (03:12)
[2022-04-19] MEDS: AMPICILLIN NA/SULBACTAM NA 1.5 GM in SODIUM CHLORIDE 100 ML IVPB SCH (03:14)
[2022-04-19] MEDS: INSULIN SLIDING SCALE (NOVOLOG) 1 VIAL SQ SCH ×4 (06:05→23:38)
[2022-04-19] MEDS: LEVOTHYROXINE NA 25 MCG TABLET (FP) PO SCH (06:05)
[2022-04-19] MEDS: DOCUSATE SODIUM 100 MG CAPSULE (FP) PO SCH ×2 (09:50→23:38)
[2022-04-19] MEDS: predniSONE 5 MG TABLET (UD) PO SCH (09:50)
[2022-04-19] MEDS: amLODIPine BESYLATE 2.5 MG TABLET (FP) PO SCH (09:51)
[2022-04-19] MEDS: GABAPENTIN 300 MG CAPSULE PO SCH (09:51)
[2022-04-19] MEDS: FAMOTIDINE 20 MG TABLET PO SCH ×2 (09:51→23:38)
[2022-04-19] MEDS: SODIUM CHLORIDE 1,000 ML IV SCH ×2 (09:53→15:40)
[2022-04-19] MEDS: ACETAMINOPHEN 325 MG TABLET (FP) PO PRN ×2 (10:10→23:42)
[2022-04-19] MEDS: APIXABAN 5 MG TABLET PO SCH ×2 (11:32→23:38)
[2022-04-19] MEDS: ATORVASTATIN CA 20 MG TABLET (FP) PO SCH (23:38)
[2022-04-20] MEDS: INSULIN SLIDING SCALE (NOVOLOG) 1 VIAL SQ SCH ×4 (06:53→22:20)
[2022-04-20] MEDS: LEVOTHYROXINE NA 25 MCG TABLET (FP) PO SCH (06:53)
[2022-04-20 09:02] LABS: BASO % 0.7 % (0-2.0); EOS % 1.5 % (0-4.5); HEMATOCRIT 30.9 % (32.4-45.2); HEMOGLOBIN 10.4 GM/dL (10.7-15.3); LYMPH % 27.2 % (8-40); MCH 30.8 pg (25.7-33.7); MCHC 33.5 g/dl (32.0-36.0); MEAN CELL VOLUME 92.1 fl (80-96); MEAN PLT VOLUME 7.7 fl (7.5-11.1); MONO % 9.1 % (3.8-10.2); NEUT % 61.5 % (42.8-82.8); PLATELET COUNT 307 10^3/uL (134-434); RBC 3.36 M/mm3 (3.60-5.2); RDW 13.8 % (11.6-15.6)
[2022-04-20 09:33] LABS: CALCIUM 8.6 mg/dL (8.5-10.1)
[2022-04-20 09:34] LABS: BLOOD UREA NITROGEN 7.1 mg/dL (7-18)
[2022-04-20 09:37] LABS: CREATININE 0.6 mg/dL (0.55-1.3)
[2022-04-20] MEDS: ACETAMINOPHEN 325 MG TABLET (FP) PO PRN (10:51)
[2022-04-20] MEDS: FAMOTIDINE 20 MG TABLET PO SCH ×2 (10:51→22:20)
[2022-04-20] MEDS: amLODIPine BESYLATE 2.5 MG TABLET (FP) PO SCH (10:51)
[2022-04-20] MEDS: predniSONE 5 MG TABLET (UD) PO SCH (10:51)
[2022-04-20] MEDS: DOCUSATE SODIUM 100 MG CAPSULE (FP) PO SCH ×2 (10:51→22:19)
[2022-04-20] MEDS: GABAPENTIN 300 MG CAPSULE PO SCH (10:53)
[2022-04-20] MEDS: APIXABAN 5 MG TABLET PO SCH ×2 (10:53→22:20)
[2022-04-20] MEDS: ATORVASTATIN CA 20 MG TABLET (FP) PO SCH (22:19)
[2022-04-21] MEDS: INSULIN SLIDING SCALE (NOVOLOG) 1 VIAL SQ SCH ×4 (06:18→21:43)
[2022-04-21] MEDS: ACETAMINOPHEN 325 MG TABLET (FP) PO PRN (06:18)
[2022-04-21] MEDS: LEVOTHYROXINE NA 25 MCG TABLET (FP) PO SCH (06:18)
[2022-04-21] MEDS: GABAPENTIN 300 MG CAPSULE PO SCH (09:16)
[2022-04-21] MEDS: DOCUSATE SODIUM 100 MG CAPSULE (FP) PO SCH ×2 (09:16→21:44)
[2022-04-21] MEDS: APIXABAN 5 MG TABLET PO SCH ×2 (09:17→21:44)
[2022-04-21] MEDS: FAMOTIDINE 20 MG TABLET PO SCH ×2 (09:17→21:44)
[2022-04-21] MEDS: amLODIPine BESYLATE 2.5 MG TABLET (FP) PO SCH (09:17)
[2022-04-21] MEDS: predniSONE 5 MG TABLET (UD) PO SCH (09:17)
[2022-04-21 10:02] LABS: HEMATOCRIT 28.5 % (32.4-45.2); HEMOGLOBIN 9.7 GM/dL (10.7-15.3); MCH 31.3 pg (25.7-33.7); MCHC 33.9 g/dl (32.0-36.0); MEAN CELL VOLUME 92.3 fl (80-96); PLATELET COUNT 297 10^3/uL (134-434); RBC 3.09 M/mm3 (3.60-5.2); RDW 13.8 % (11.6-15.6); WHITE BLOOD COUNT 8.6 K/mm3 (4.0-10.0)
[2022-04-21] MEDS: ATORVASTATIN CA 20 MG TABLET (FP) PO SCH (21:44)
[2022-04-22] MEDS: ACETAMINOPHEN 325 MG TABLET (FP) PO PRN ×3 (00:05→21:22)
[2022-04-22] MEDS: LEVOTHYROXINE NA 25 MCG TABLET (FP) PO SCH (06:01)
[2022-04-22] MEDS: INSULIN SLIDING SCALE (NOVOLOG) 1 VIAL SQ SCH ×4 (06:01→21:21)
[2022-04-22 10:06] LABS: HEMATOCRIT 30.4 % (32.4-45.2); HEMOGLOBIN 10.4 GM/dL (10.7-15.3); MCH 31.4 pg (25.7-33.7); MCHC 34.3 g/dl (32.0-36.0); MEAN CELL VOLUME 91.8 fl (80-96); MEAN PLT VOLUME 7.9 fl (7.5-11.1); PLATELET COUNT 346 10^3/uL (134-434); RBC 3.31 M/mm3 (3.60-5.2); WHITE BLOOD COUNT 8.1 K/mm3 (4.0-10.0)
[2022-04-22] MEDS: predniSONE 5 MG TABLET (UD) PO SCH (10:33)
[2022-04-22] MEDS: amLODIPine BESYLATE 2.5 MG TABLET (FP) PO SCH (10:33)
[2022-04-22] MEDS: APIXABAN 5 MG TABLET PO SCH ×2 (10:33→21:22)
[2022-04-22] MEDS: GABAPENTIN 300 MG CAPSULE PO SCH (10:33)
[2022-04-22] MEDS: DOCUSATE SODIUM 100 MG CAPSULE (FP) PO SCH ×2 (10:33→21:21)
[2022-04-22] MEDS: FAMOTIDINE 20 MG TABLET PO SCH ×2 (10:33→21:22)
[2022-04-22] MEDS: ATORVASTATIN CA 20 MG TABLET (FP) PO SCH (21:22)
[2022-04-23] MEDS: LEVOTHYROXINE NA 25 MCG TABLET (FP) PO SCH (06:08)
[2022-04-23] MEDS: INSULIN SLIDING SCALE (NOVOLOG) 1 VIAL SQ SCH ×4 (06:08→22:21)
[2022-04-23] MEDS: ACETAMINOPHEN 325 MG TABLET (FP) PO PRN ×3 (06:53→22:28)
[2022-04-23 10:25] LABS: HEMATOCRIT 30.8 % (32.4-45.2); HEMOGLOBIN 10.6 GM/dL (10.7-15.3); MCH 31.2 pg (25.7-33.7); MCHC 34.4 g/dl (32.0-36.0); MEAN CELL VOLUME 90.9 fl (80-96); MEAN PLT VOLUME 7.7 fl (7.5-11.1); PLATELET COUNT 391 10^3/uL (134-434); RBC 3.39 M/mm3 (3.60-5.2); RDW 13.9 % (11.6-15.6); WHITE BLOOD COUNT 7.8 K/mm3 (4.0-10.0)
[2022-04-23] MEDS: predniSONE 5 MG TABLET (UD) PO SCH (10:39)
[2022-04-23] MEDS: GABAPENTIN 300 MG CAPSULE PO SCH (10:39)
[2022-04-23] MEDS: amLODIPine BESYLATE 2.5 MG TABLET (FP) PO SCH (10:39)
[2022-04-23] MEDS: APIXABAN 5 MG TABLET PO SCH ×2 (10:39→22:26)
[2022-04-23] MEDS: DOCUSATE SODIUM 100 MG CAPSULE (FP) PO SCH ×2 (10:39→21:26)
[2022-04-23] MEDS: FAMOTIDINE 20 MG TABLET PO SCH ×2 (10:39→22:26)
[2022-04-23] MEDS: POTASSIUM CHLORIDE TABS 20 MEQ TABLET.ER (FP) PO ONE ×2 (10:39→13:48)
[2022-04-23 12:59] LABS: BASO % 0.6 % (0-2.0); EOS % 1.5 % (0-4.5); HEMATOCRIT 31.3 % (32.4-45.2); HEMOGLOBIN 10.7 GM/dL (10.7-15.3); LYMPH % 21.6 % (8-40); MCH 31.2 pg (25.7-33.7); MCHC 34.3 g/dl (32.0-36.0); MEAN CELL VOLUME 91.1 fl (80-96); MEAN PLT VOLUME 7.7 fl (7.5-11.1); MONO % 7.5 % (3.8-10.2); NEUT % 68.8 % (42.8-82.8); PLATELET COUNT 379 10^3/uL (134-434); RBC 3.44 M/mm3 (3.60-5.2); RDW 13.5 % (11.6-15.6); WHITE BLOOD COUNT 8.4 K/mm3 (4.0-10.0)
[2022-04-23 13:14] LABS: BLOOD UREA NITROGEN 9.5 mg/dL (7-18); CALCIUM 8.5 mg/dL (8.5-10.1)
[2022-04-23 13:17] LABS: CREATININE 0.6 mg/dL (0.55-1.3)
[2022-04-23 13:19] LABS: BILIRUBIN,TOTAL 0.4 mg/dL (0.2-1); TOT PROT 6.1 g/dl (6.4-8.2)
[2022-04-23 13:21] LABS: ALBUMIN 2.5 g/dl (3.4-5.0)
[2022-04-23] MEDS: ATORVASTATIN CA 20 MG TABLET (FP) PO SCH (22:26)
[2022-04-24] MEDS: INSULIN SLIDING SCALE (NOVOLOG) 1 VIAL SQ SCH ×2 (06:12→12:24)
[2022-04-24] MEDS: LEVOTHYROXINE NA 25 MCG TABLET (FP) PO SCH (06:13)
[2022-04-24] MEDS: ACETAMINOPHEN 325 MG TABLET (FP) PO PRN ×2 (06:15→11:27)
[2022-04-24 10:23] LABS: HEMOGLOBIN 10.9 GM/dL (10.7-15.3); MCH 31.2 pg (25.7-33.7); MCHC 34.2 g/dl (32.0-36.0); MEAN CELL VOLUME 91.4 fl (80-96); MEAN PLT VOLUME 7.7 fl (7.5-11.1); PLATELET COUNT 428 10^3/uL (134-434); WHITE BLOOD COUNT 8.3 K/mm3 (4.0-10.0)
[2022-04-24 10:54] LABS: CALCIUM 8.9 mg/dL (8.5-10.1)
[2022-04-24 10:55] LABS: BLOOD UREA NITROGEN 9.7 mg/dL (7-18)
[2022-04-24 10:58] LABS: CREATININE 0.8 mg/dL (0.55-1.3)
[2022-04-24] MEDS: GABAPENTIN 300 MG CAPSULE PO SCH (11:29)
[2022-04-24] MEDS: predniSONE 5 MG TABLET (UD) PO SCH (11:29)
[2022-04-24] MEDS: FAMOTIDINE 20 MG TABLET PO SCH (11:29)
[2022-04-24] MEDS: amLODIPine BESYLATE 2.5 MG TABLET (FP) PO SCH (11:29)
[2022-04-24] MEDS: APIXABAN 5 MG TABLET PO SCH (11:29)
[2022-04-24] MEDS: DOCUSATE SODIUM 100 MG CAPSULE (FP) PO SCH (11:34)
[2022-04-24 15:01] VITALS: BP 139/58; PULSE 69; TEMP 97.9
== END 2022-04-24 16:29 | disposition home health service (06) | DRG 271 ==
LOC: FER 19:32 → FM/S 22:54 → J5S 04-16 19:36
PROVIDERS: ADMIT Hospitalist; ATTEND Internal Medicine
PROC: 047K3D1 Dilation of Right Femoral Artery with Intraluminal Device, using Drug-Coated Balloon, Percutaneous Approach (ICD-10-PCS; 2022-04-18)
PROC: B40DYZZ Plain Radiography of Aorta and Bilateral Lower Extremity Arteries using Other Contrast (ICD-10-PCS; 2022-04-18)
PROC: B40FYZZ Plain Radiography of Right Lower Extremity Arteries using Other Contrast (ICD-10-PCS; 2022-04-18)
PROC: 04CK3ZZ Extirpation of Matter from Right Femoral Artery, Percutaneous Approach (ICD-10-PCS; principal; 2022-04-18 13:00)
DX: E11.52 Type 2 diabetes mellitus with diabetic peripheral angiopathy with gangrene (principal); L03.90 Cellulitis, unspecified; I74.3 Embolism and thrombosis of arteries of the lower extremities; E78.5 Hyperlipidemia, unspecified; J44.9 Chronic obstructive pulmonary disease, unspecified; E03.9 Hypothyroidism, unspecified; M35.3 Polymyalgia rheumatica; F17.210 Nicotine dependence, cigarettes, uncomplicated; Q66.89 Other specified congenital deformities of feet; S40.022A Contusion of left upper arm, initial encounter
CPT/HCPCS: 36415; 71045-TC-FY; 73630-TC-RT-FY; 73706-TC-RT; 76000-TC-FY; 80048; 80053; 80061; 82962; 83735; 84100; 84443; 85025; 85027; 85610; 85651; 85730; 86140; 86850; 86900; 86901; 87040; 93005; 93306-TC; 94010; 94760; 97116-GP; 97162-GP; 99285-25; C9803-CS; J1644; Q9967; U0003; U0005

== ENCOUNTER 2022-08-19 15:46 | Inpatient (IN) | payer OTHER ==
[2022-08-19] MEDS ORDERED: CEFAZOLIN 1 GM in DEXTROSE 5%-WATER - 50 ML IVPB ONE (17:54)
[2022-08-19 18:44] LABS: BASO % 0.7 % (0-2.0); EOS % 1.6 % (0-4.5); HEMATOCRIT 37.3 % (32.4-45.2); HEMOGLOBIN 12.2 GM/dL (10.7-15.3); LYMPH % 28.7 % (8-40); MCH 29.2 pg (25.7-33.7); MCHC 32.7 g/dl (32.0-36.0); MONO % 5.9 % (3.8-10.2); NEUT % 63.1 % (42.8-82.8); PLATELET COUNT 587 10^3/uL (134-434); RBC 4.19 M/mm3 (3.60-5.2); RDW 13.9 % (11.6-15.6); WHITE BLOOD COUNT 7.7 K/mm3 (4.0-10.0)
[2022-08-19] MEDS ORDERED: ceFAZolin SODIUM 1 GM VIAL ONE (18:46)
[2022-08-19 19:05] LABS: CALCIUM 9.8 mg/dL (8.5-10.1)
[2022-08-19 19:06] LABS: ALBUMIN 3.3 g/dl (3.4-5.0); BLOOD UREA NITROGEN 12.3 mg/dL (7-18)
[2022-08-19 19:09] LABS: CREATININE 0.9 mg/dL (0.55-1.3)
[2022-08-19 19:11] LABS: BILIRUBIN,TOTAL 0.3 mg/dL (0.2-1)
[2022-08-19 19:31] LABS: ERYTHROCYTE SEDIMENTATION RATE 90 mm/hr (0-30)
[2022-08-19] MEDS ORDERED: ACETAMINOPHEN 1000 MG/100 ML BAG IVPB PRN ×2 (20:11→20:18)
[2022-08-19] MEDS ORDERED: ONDANSETRON 4 MG/2 ML VIAL IVPUSH PRN (20:14)
[2022-08-19] MEDS: INSULIN SLIDING SCALE (NOVOLOG) 1 VIAL SQ SCH (23:28)
[2022-08-20] MEDS: CEFAZOLIN 1 GM in DEXTROSE 5%-WATER - 50 ML IVPB SCH ×3 (02:01→17:57)
[2022-08-20] MEDS: INSULIN SLIDING SCALE (NOVOLOG) 1 VIAL SQ SCH ×4 (07:42→21:58)
[2022-08-20] MEDS: DOCUSATE SODIUM 100 MG CAPSULE (FP) PO PRN (10:15)
[2022-08-20] MEDS: APIXABAN 5 MG TABLET PO SCH ×2 (10:20→21:58)
[2022-08-20] MEDS: GABAPENTIN 300 MG CAPSULE PO SCH (10:30)
[2022-08-20 10:42] LABS: BASO % 0.8 % (0-2.0); EOS % 3.6 % (0-4.5); HEMATOCRIT 33.3 % (32.4-45.2); LYMPH % 30.1 % (8-40); MCH 29.2 pg (25.7-33.7); MCHC 33.1 g/dl (32.0-36.0); MEAN CELL VOLUME 88.2 fl (80-96); MEAN PLT VOLUME 7.4 fl (7.5-11.1); MONO % 7.9 % (3.8-10.2); NEUT % 57.6 % (42.8-82.8); PLATELET COUNT 517 10^3/uL (134-434); RBC 3.77 M/mm3 (3.60-5.2); WHITE BLOOD COUNT 8.3 K/mm3 (4.0-10.0)
[2022-08-20 10:53] LABS: INR 1.12 (0.83-1.09); PROTHROMBIN TIME (PATIENT) 12.9 SEC (9.7-13.0)
[2022-08-20 10:56] LABS: ACTIVATED PTT 28.4 SECONDS (25.2-36.5)
[2022-08-20 11:03] LABS: CALCIUM 9.8 mg/dL (8.5-10.1)
[2022-08-20 11:04] LABS: BLOOD UREA NITROGEN 11.9 mg/dL (7-18); MAGNESIUM 1.9 mg/dL (1.8-2.4)
[2022-08-20 11:07] LABS: CREATININE 0.9 mg/dL (0.55-1.3); PHOSPHOROUS 3.5 mg/dL (2.5-4.9)
[2022-08-20] MEDS: LEVOTHYROXINE NA 25 MCG TABLET (FP) PO SCH (11:41)
[2022-08-20] MEDS ORDERED: INSULIN (NOVOLOG) ASPART 100 UNITS/ML 10ML VIAL ONE (12:06)
[2022-08-20] MEDS ORDERED: VANCOMYCIN 1 GM/200 ML PREMIX BAG IVPB ONE ×2 (12:34→12:45)
[2022-08-20] MEDS: DAPTOMYCIN 320 MG in SODIUM CHLORIDE 50 ML IVPB SCH (17:57)
[2022-08-20] MEDS ORDERED: DOXYCYCLINE HYCLATE 100 MG CAPSULE PO SCH (18:00)
[2022-08-21] MEDS: CEFAZOLIN 1 GM in DEXTROSE 5%-WATER - 50 ML IVPB SCH ×3 (02:09→17:48)
[2022-08-21] MEDS: ACETAMINOPHEN 325 MG TABLET (FP) PO PRN ×2 (06:04→14:26)
[2022-08-21] MEDS: INSULIN SLIDING SCALE (NOVOLOG) 1 VIAL SQ SCH ×4 (06:04→22:53)
[2022-08-21] MEDS: LEVOTHYROXINE NA 25 MCG TABLET (FP) PO SCH (06:06)
[2022-08-21] MEDS: APIXABAN 5 MG TABLET PO SCH ×2 (11:39→22:51)
[2022-08-21] MEDS: GABAPENTIN 300 MG CAPSULE PO SCH (11:39)
[2022-08-21] MEDS: DAPTOMYCIN 320 MG in SODIUM CHLORIDE 50 ML IVPB SCH (18:47)
[2022-08-21] MEDS: KETOROLAC TROMETHAMINE 15 MG/ML VIAL IVPUSH PRN (21:34)
[2022-08-22] MEDS: CEFAZOLIN 1 GM in DEXTROSE 5%-WATER - 50 ML IVPB SCH ×2 (02:27→09:25)
[2022-08-22] MEDS: INSULIN SLIDING SCALE (NOVOLOG) 1 VIAL SQ SCH ×4 (06:25→21:35)
[2022-08-22] MEDS: LEVOTHYROXINE NA 25 MCG TABLET (FP) PO SCH (06:27)
[2022-08-22 10:03] LABS: BASO % 0.6 % (0-2.0); EOS % 2.8 % (0-4.5); HEMOGLOBIN 11.1 GM/dL (10.7-15.3); LYMPH % 25.9 % (8-40); MCH 29.8 pg (25.7-33.7); MCHC 33.6 g/dl (32.0-36.0); MEAN CELL VOLUME 88.5 fl (80-96); MEAN PLT VOLUME 7.3 fl (7.5-11.1); MONO % 7.3 % (3.8-10.2); NEUT % 63.4 % (42.8-82.8); PLATELET COUNT 448 10^3/uL (134-434); RBC 3.73 M/mm3 (3.60-5.2); RDW 13.8 % (11.6-15.6); WHITE BLOOD COUNT 6.9 K/mm3 (4.0-10.0)
[2022-08-22 10:11] LABS: BLOOD UREA NITROGEN 17.9 mg/dL (7-18); CALCIUM 9.4 mg/dL (8.5-10.1)
[2022-08-22 10:15] LABS: CREATININE 0.8 mg/dL (0.55-1.3)
[2022-08-22] MEDS: GABAPENTIN 300 MG CAPSULE PO SCH (10:54)
[2022-08-22] MEDS: ACETAMINOPHEN 325 MG TABLET (FP) PO PRN ×2 (10:54→22:44)
[2022-08-22] MEDS: APIXABAN 5 MG TABLET PO SCH ×2 (10:54→21:30)
[2022-08-22] MEDS: DAPTOMYCIN 320 MG in SODIUM CHLORIDE 50 ML IVPB SCH (19:07)
[2022-08-23] MEDS: INSULIN SLIDING SCALE (NOVOLOG) 1 VIAL SQ SCH ×4 (06:22→21:09)
[2022-08-23] MEDS: LEVOTHYROXINE NA 25 MCG TABLET (FP) PO SCH (06:22)
[2022-08-23] MEDS: ACETAMINOPHEN 325 MG TABLET (FP) PO PRN (10:07)
[2022-08-23] MEDS: MUPIROCIN 2% TOPICAL OINTMENT 22 GM TUBE TP SCH (10:07)
[2022-08-23] MEDS: APIXABAN 5 MG TABLET PO SCH ×2 (10:07→21:13)
[2022-08-23] MEDS: GABAPENTIN 300 MG CAPSULE PO SCH (10:07)
[2022-08-23] MEDS: DAPTOMYCIN 320 MG in SODIUM CHLORIDE 50 ML IVPB SCH (18:19)
[2022-08-23] MEDS: KETOROLAC TROMETHAMINE 15 MG/ML VIAL IVPUSH PRN (20:58)
[2022-08-24] MEDS: LEVOTHYROXINE NA 25 MCG TABLET (FP) PO SCH (06:02)
[2022-08-24] MEDS: INSULIN SLIDING SCALE (NOVOLOG) 1 VIAL SQ SCH ×4 (06:03→21:53)
[2022-08-24 09:49] LABS: BASO % 0.6 % (0-2.0); EOS % 3.1 % (0-4.5); HEMATOCRIT 32.3 % (32.4-45.2); HEMOGLOBIN 10.5 GM/dL (10.7-15.3); LYMPH % 24.9 % (8-40); MCH 28.9 pg (25.7-33.7); MCHC 32.6 g/dl (32.0-36.0); MEAN CELL VOLUME 88.6 fl (80-96); MEAN PLT VOLUME 7.9 fl (7.5-11.1); MONO % 8.3 % (3.8-10.2); NEUT % 63.1 % (42.8-82.8); PLATELET COUNT 462 10^3/uL (134-434); RBC 3.65 M/mm3 (3.60-5.2); WHITE BLOOD COUNT 7.2 K/mm3 (4.0-10.0)
[2022-08-24 10:10] LABS: CALCIUM 9.8 mg/dL (8.5-10.1)
[2022-08-24 10:12] LABS: BLOOD UREA NITROGEN 22.9 mg/dL (7-18)
[2022-08-24 10:14] LABS: CREATININE 0.8 mg/dL (0.55-1.3)
[2022-08-24] MEDS: APIXABAN 5 MG TABLET PO SCH ×2 (10:28→21:48)
[2022-08-24] MEDS: GABAPENTIN 300 MG CAPSULE PO SCH (10:28)
[2022-08-24] MEDS: MUPIROCIN 2% TOPICAL OINTMENT 22 GM TUBE TP SCH (10:29)
[2022-08-24] MEDS: KETOROLAC TROMETHAMINE 15 MG/ML VIAL IVPUSH PRN (10:35)
[2022-08-24] MEDS ORDERED: INSULIN (NOVOLOG) ASPART 100 UNITS/ML 10ML VIAL ONE (11:57)
[2022-08-24] MEDS: DAPTOMYCIN 320 MG in SODIUM CHLORIDE 50 ML IVPB SCH (18:25)
[2022-08-24] MEDS: ACETAMINOPHEN 325 MG TABLET (FP) PO PRN (21:48)
[2022-08-25] MEDS: INSULIN SLIDING SCALE (NOVOLOG) 1 VIAL SQ SCH ×4 (06:27→22:24)
[2022-08-25] MEDS: LEVOTHYROXINE NA 25 MCG TABLET (FP) PO SCH (06:27)
[2022-08-25] MEDS: APIXABAN 5 MG TABLET PO SCH ×2 (10:36→22:24)
[2022-08-25] MEDS: GABAPENTIN 300 MG CAPSULE PO SCH (10:36)
[2022-08-25] MEDS: KETOROLAC TROMETHAMINE 15 MG/ML VIAL IVPUSH PRN (10:52)
[2022-08-25 14:00] VITALS: BMI 22.8
[2022-08-25] MEDS: PANTOPRAZOLE 40 MG TABLET PO SCH (16:29)
[2022-08-25] MEDS: KETOROLAC TROMETHAMINE 10 MG TABLET PO SCH ×2 (16:29→22:25)
[2022-08-25] MEDS: MUPIROCIN 2% TOPICAL OINTMENT 22 GM TUBE TP SCH (16:58)
[2022-08-25] MEDS: DAPTOMYCIN 320 MG in SODIUM CHLORIDE 50 ML IVPB SCH (17:01)
[2022-08-25] MEDS: DOCUSATE SODIUM 100 MG CAPSULE (FP) PO PRN (22:26)
[2022-08-26] MEDS: KETOROLAC TROMETHAMINE 10 MG TABLET PO SCH ×3 (06:12→22:18)
[2022-08-26] MEDS: INSULIN SLIDING SCALE (NOVOLOG) 1 VIAL SQ SCH ×4 (06:13→22:17)
[2022-08-26] MEDS: LEVOTHYROXINE NA 25 MCG TABLET (FP) PO SCH (06:14)
[2022-08-26 09:36] LABS: BASO % 0.8 % (0-2.0); EOS % 3.4 % (0-4.5); HEMATOCRIT 29.5 % (32.4-45.2); HEMOGLOBIN 9.7 GM/dL (10.7-15.3); LYMPH % 27.2 % (8-40); MCHC 32.8 g/dl (32.0-36.0); MEAN CELL VOLUME 88.3 fl (80-96); MEAN PLT VOLUME 7.9 fl (7.5-11.1); MONO % 10.3 % (3.8-10.2); NEUT % 58.3 % (42.8-82.8); PLATELET COUNT 452 10^3/uL (134-434); RBC 3.34 M/mm3 (3.60-5.2); RDW 13.8 % (11.6-15.6)
[2022-08-26 09:52] LABS: CALCIUM 9.4 mg/dL (8.5-10.1)
[2022-08-26 09:53] LABS: BLOOD UREA NITROGEN 25.4 mg/dL (7-18)
[2022-08-26 09:56] LABS: CREATININE 0.9 mg/dL (0.55-1.3)
[2022-08-26] MEDS: PANTOPRAZOLE 40 MG TABLET PO SCH (10:15)
[2022-08-26] MEDS: GABAPENTIN 300 MG CAPSULE PO SCH (10:15)
[2022-08-26] MEDS: APIXABAN 5 MG TABLET PO SCH ×2 (10:15→22:17)
[2022-08-26] MEDS: predniSONE 5 MG TABLET (UD) PO SCH (10:16)
[2022-08-26] MEDS: MUPIROCIN 2% TOPICAL OINTMENT 22 GM TUBE TP SCH (10:16)
[2022-08-26] MEDS: BACITRACIN 15 GM TUBE TOPICAL OINTMENT TP SCH (14:02)
[2022-08-26] MEDS: DAPTOMYCIN 320 MG in SODIUM CHLORIDE 50 ML IVPB SCH (17:09)
[2022-08-27] MEDS: ACETAMINOPHEN 325 MG TABLET (FP) PO PRN (04:10)
[2022-08-27] MEDS: KETOROLAC TROMETHAMINE 10 MG TABLET PO SCH ×3 (06:17→21:51)
[2022-08-27] MEDS: INSULIN SLIDING SCALE (NOVOLOG) 1 VIAL SQ SCH ×4 (06:17→22:01)
[2022-08-27] MEDS: LEVOTHYROXINE NA 25 MCG TABLET (FP) PO SCH (06:17)
[2022-08-27] MEDS: PANTOPRAZOLE 40 MG TABLET PO SCH (11:47)
[2022-08-27] MEDS: APIXABAN 5 MG TABLET PO SCH ×2 (11:47→21:51)
[2022-08-27] MEDS: predniSONE 5 MG TABLET (UD) PO SCH (11:47)
[2022-08-27] MEDS: GABAPENTIN 300 MG CAPSULE PO SCH (11:47)
[2022-08-27] MEDS: BACITRACIN 15 GM TUBE TOPICAL OINTMENT TP SCH (11:51)
[2022-08-27] MEDS: MUPIROCIN 2% TOPICAL OINTMENT 22 GM TUBE TP SCH (15:09)
[2022-08-27] MEDS: DAPTOMYCIN 320 MG in SODIUM CHLORIDE 50 ML IVPB SCH (17:29)
[2022-08-27] MEDS: DOCUSATE SODIUM 100 MG CAPSULE (FP) PO PRN (21:57)
[2022-08-28] MEDS: KETOROLAC TROMETHAMINE 10 MG TABLET PO SCH ×3 (06:25→22:04)
[2022-08-28] MEDS: INSULIN SLIDING SCALE (NOVOLOG) 1 VIAL SQ SCH ×4 (06:26→22:19)
[2022-08-28] MEDS: LEVOTHYROXINE NA 25 MCG TABLET (FP) PO SCH (06:26)
[2022-08-28] MEDS: predniSONE 5 MG TABLET (UD) PO SCH (10:06)
[2022-08-28] MEDS: PANTOPRAZOLE 40 MG TABLET PO SCH (10:07)
[2022-08-28] MEDS: GABAPENTIN 300 MG CAPSULE PO SCH (10:07)
[2022-08-28] MEDS: APIXABAN 5 MG TABLET PO SCH ×2 (10:07→22:05)
[2022-08-28] MEDS: BACITRACIN 15 GM TUBE TOPICAL OINTMENT TP SCH (10:13)
[2022-08-28] MEDS: MUPIROCIN 2% TOPICAL OINTMENT 22 GM TUBE TP SCH (11:30)
[2022-08-28] MEDS ORDERED: INSULIN (NOVOLOG) ASPART 100 UNITS/ML 10ML VIAL ONE (16:43)
[2022-08-28 17:51] VITALS: RESP 20
[2022-08-28] MEDS: DOXYCYCLINE HYCLATE 100 MG CAPSULE PO SCH (18:42)
[2022-08-28] MEDS: DOCUSATE SODIUM 100 MG CAPSULE (FP) PO PRN (22:13)
[2022-08-29] MEDS: KETOROLAC TROMETHAMINE 10 MG TABLET PO SCH (06:17)
[2022-08-29] MEDS: LEVOTHYROXINE NA 25 MCG TABLET (FP) PO SCH (06:24)
[2022-08-29] MEDS: INSULIN SLIDING SCALE (NOVOLOG) 1 VIAL SQ SCH ×2 (06:24→12:20)
[2022-08-29 08:49] VITALS: BP 147/61; PULSE 68; TEMP 97.5
[2022-08-29] MEDS: GABAPENTIN 300 MG CAPSULE PO SCH (09:24)
[2022-08-29] MEDS: APIXABAN 5 MG TABLET PO SCH (09:25)
[2022-08-29] MEDS: DOXYCYCLINE HYCLATE 100 MG CAPSULE PO SCH (09:25)
[2022-08-29] MEDS: predniSONE 5 MG TABLET (UD) PO SCH (09:25)
[2022-08-29] MEDS: PANTOPRAZOLE 40 MG TABLET PO SCH (09:25)
[2022-08-29] MEDS: BACITRACIN 15 GM TUBE TOPICAL OINTMENT TP SCH (09:29)
[2022-08-29] MEDS: MUPIROCIN 2% TOPICAL OINTMENT 22 GM TUBE TP SCH (12:58)
== END 2022-08-29 15:53 | disposition home health service (06) | DRG 603 ==
LOC: JER 15:46 → JERBED 18:07 → J8W 08-20 00:59
PROVIDERS: ADMIT Internal Medicine; ATTEND Internal Medicine
PROC: 0H9CXZX Drainage of Left Upper Arm Skin, External Approach, Diagnostic (ICD-10-PCS; principal; 2022-08-20)
DX: L03.114 Cellulitis of left upper limb (principal); M86.8X2 Other osteomyelitis, upper arm; E11.52 Type 2 diabetes mellitus with diabetic peripheral angiopathy with gangrene; M06.9 Rheumatoid arthritis, unspecified; E03.9 Hypothyroidism, unspecified; E11.69 Type 2 diabetes mellitus with other specified complication; I10 Essential (primary) hypertension; E78.5 Hyperlipidemia, unspecified; J44.9 Chronic obstructive pulmonary disease, unspecified; Q66.89 Other specified congenital deformities of feet; Z79.4 Long term (current) use of insulin; M25.562 Pain in left knee
CPT/HCPCS: 36415; 71046-TC-FY; 73090-TC-LT-FY; 73130-TC-LT-FY; 80048; 80053; 82550; 82962; 83735; 84100; 84443; 85025; 85610; 85651; 85730; 86140; 87040; 87070; 87186; 87205; 93005; 93010; 99285-25; C9803-CS; J0878; U0003; U0005

== ENCOUNTER 2023-01-08 16:25 | Inpatient (IN) | payer OTHER ==
[2023-01-08 16:54] VITALS: BMI 22.8
[2023-01-08] MEDS ORDERED: SODIUM CHLORIDE IVPB ONE (18:26)
[2023-01-08] MEDS ORDERED: DAPTOMYCIN IVPB ONE (18:26)
[2023-01-08] MEDS ORDERED: PIPERACILLIN/TAZOB 3.375 GM 3.375 GM in DEXTROSE 5%-WATER - 50 ML IVPB ONE (18:26)
[2023-01-08] MEDS ORDERED: ACETAMINOPHEN 1000 MG/100 ML BAG IVPB ONE (18:34)
[2023-01-08] MEDS ORDERED: PIPERACILLIN/TAZOB 3.375 GM 3.375 GM/50 ML BAG IVPB ONE (18:47)
[2023-01-08] MEDS ORDERED: ACETAMINOPHEN INJECTION 100 ML IVPB ONE (18:51)
[2023-01-08 19:21] LABS: INR 1.28 (0.83-1.09); PROTHROMBIN TIME (PATIENT) 14.8 SEC (9.7-13.0)
[2023-01-08 19:22] LABS: BASO % 0.5 % (0-2.0); EOS % 0.9 % (0-4.5); HEMATOCRIT 30.3 % (32.4-45.2); HEMOGLOBIN 9.7 GM/dL (10.7-15.3); LYMPH % 25.8 % (8-40); MCH 26.3 pg (25.7-33.7); MCHC 32.1 g/dl (32.0-36.0); MEAN CELL VOLUME 81.7 fl (80-96); MEAN PLT VOLUME 7.5 fl (7.5-11.1); MONO % 8.3 % (3.8-10.2); NEUT % 64.5 % (42.8-82.8); PLATELET COUNT 610 10^3/uL (134-434); RDW 16.1 % (11.6-15.6); WHITE BLOOD COUNT 8.2 K/mm3 (4.0-10.0)
[2023-01-08 19:24] LABS: ACTIVATED PTT 30.8 SECONDS (25.2-36.5)
[2023-01-08 19:38] LABS: ALBUMIN 2.9 g/dl (3.4-5.0); BLOOD UREA NITROGEN 18.2 mg/dL (7-18); CALCIUM 9.7 mg/dL (8.5-10.1)
[2023-01-08 19:41] LABS: CREATININE 0.7 mg/dL (0.55-1.3)
[2023-01-08 19:43] LABS: BILIRUBIN,TOTAL 0.2 mg/dL (0.2-1); TOT PROT 7.5 g/dl (6.4-8.2)
[2023-01-08 20:07] LABS: ERYTHROCYTE SEDIMENTATION RATE 97 mm/hr (0-30)
[2023-01-08] MEDS ORDERED: DOCUSATE SODIUM 100 MG CAPSULE (FP) PO PRN (20:22)
[2023-01-08 22:07] LABS: LACTIC ACID 2.9 mmol/L (0.4-2.0)
[2023-01-08] MEDS ORDERED: MELATONIN 5 MG TABLETS PO PRN (22:24)
[2023-01-08] MEDS: INSULIN SLIDING SCALE (NOVOLOG) 1 VIAL SQ SCH (22:46)
[2023-01-08] MEDS ORDERED: SODIUM CHLORIDE 500 ML IV STA (22:52)
[2023-01-09] MEDS ORDERED: ceFAZolin SODIUM 1 GM VIAL IVPB ONE
[2023-01-09] MEDS ORDERED: DOCUSATE SODIUM 100 MG CAPSULE (FP) PO PRN (01:28)
[2023-01-09] MEDS ORDERED: FAMOTIDINE 20 MG TABLET PO PRN (01:28)
[2023-01-09] MEDS ORDERED: PIPERACILLIN/TAZOB 3.375 GM 3.375 GM in DEXTROSE 5%-WATER - 50 ML IVPB SCH ×2 (02:00→12:15)
[2023-01-09] MEDS ORDERED: ACETAMINOPHEN 1000 MG/100 ML BAG IVPB PRN ×2 (02:00→15:10)
[2023-01-09] MEDS ORDERED: GABAPENTIN 300 MG CAPSULE ONE (02:17)
[2023-01-09] MEDS ORDERED: PIPERACILLIN/TAZOB 3.375 GM 3.375 GM/50 ML BAG IVPB ONE (02:17)
[2023-01-09] MEDS: GABAPENTIN 300 MG CAPSULE PO SCH ×3 (02:26→22:49)
[2023-01-09] MEDS: PIPERACILLIN/TAZOB 3.375 GM 3.375 GM in DEXTROSE 5%-WATER - 50 ML IVPB SCH ×3 (02:26→18:37)
[2023-01-09] MEDS: INSULIN SLIDING SCALE (NOVOLOG) 1 VIAL SQ SCH ×4 (06:35→22:56)
[2023-01-09] MEDS ORDERED: LEVOTHYROXINE NA 25 MCG TABLET (FP) PO SCH (07:00)
[2023-01-09] MEDS ORDERED: predniSONE 5 MG TABLET (UD) PO SCH (08:00)
[2023-01-09 08:23] LABS: BASO % 0.7 % (0-2.0); EOS % 2.8 % (0-4.5); HEMATOCRIT 27.6 % (32.4-45.2); LYMPH % 25.6 % (8-40); MCH 26.7 pg (25.7-33.7); MCHC 32.7 g/dl (32.0-36.0); MEAN CELL VOLUME 81.6 fl (80-96); MEAN PLT VOLUME 7.4 fl (7.5-11.1); MONO % 9.6 % (3.8-10.2); NEUT % 61.3 % (42.8-82.8); PLATELET COUNT 492 10^3/uL (134-434); RBC 3.38 M/mm3 (3.60-5.2); RDW 15.9 % (11.6-15.6); WHITE BLOOD COUNT 7.8 K/mm3 (4.0-10.0)
[2023-01-09 08:41] LABS: BLOOD UREA NITROGEN 14.2 mg/dL (7-18); CALCIUM 8.9 mg/dL (8.5-10.1); MAGNESIUM 1.8 mg/dL (1.8-2.4)
[2023-01-09 08:44] LABS: PHOSPHOROUS 3.8 mg/dL (2.5-4.9)
[2023-01-09 08:45] LABS: CREATININE 0.8 mg/dL (0.55-1.3)
[2023-01-09] MEDS ORDERED: BACITRACIN ZINC 15 GM TUBE TOPICAL OINTMENT TP SCH (10:00)
[2023-01-09] MEDS ORDERED: APIXABAN 5 MG TABLET PO SCH (10:00)
[2023-01-09] MEDS ORDERED: ONDANSETRON 4 MG/2 ML VIAL IVPUSH PRN ×2 (13:20→15:10)
[2023-01-09] MEDS ORDERED: oxyCODONE HCL 5 MG TABLET PO PRN (13:20)
[2023-01-09] MEDS ORDERED: MIDAZOLAM HCL 2 MG/2 ML SINGLE DOSE VIAL ONE ×2 (13:33→13:44)
[2023-01-09] MEDS ORDERED: PROPOFOL 20 ML ONE (13:33)
[2023-01-09] MEDS ORDERED: PIPERACILLIN/TAZOBACTAM 3.375 GM VIAL IVPB ONE (13:40)
[2023-01-09] MEDS ORDERED: BUPIVACAINE HCL/PF 0.5% (5MG/ML) 10 ML VIAL NR ONE ×3 (13:47)
[2023-01-09] MEDS ORDERED: LIDOCAINE HCL 1%, 10 MG/ML (20ML VIAL) NR ONE ×3 (13:47)
[2023-01-09] MEDS ORDERED: ACETAMINOPHEN INJECTION 100 ML IVPB ONE (14:54)
[2023-01-09] MEDS ORDERED: MELATONIN 5 MG TABLETS PO PRN (15:10)
[2023-01-09] MEDS: oxyCODONE HCL 5 MG TABLET PO PRN (18:37)
[2023-01-09] MEDS ORDERED: DAPTOMYCIN IVPB SCH (21:00)
[2023-01-09] MEDS ORDERED: SODIUM CHLORIDE IVPB SCH (21:00)
[2023-01-09] MEDS: APIXABAN 5 MG TABLET PO SCH (22:49)
[2023-01-10] MEDS: PIPERACILLIN/TAZOB 3.375 GM 3.375 GM in DEXTROSE 5%-WATER - 50 ML IVPB SCH ×3 (01:28→17:10)
[2023-01-10] MEDS: LEVOTHYROXINE NA 25 MCG TABLET (FP) PO SCH (06:40)
[2023-01-10] MEDS: INSULIN SLIDING SCALE (NOVOLOG) 1 VIAL SQ SCH ×4 (06:40→21:13)
[2023-01-10 07:35] LABS: HEMATOCRIT 26.9 % (32.4-45.2); HEMOGLOBIN 8.8 GM/dL (10.7-15.3); MCH 26.5 pg (25.7-33.7); MCHC 32.5 g/dl (32.0-36.0); MEAN CELL VOLUME 81.4 fl (80-96); PLATELET COUNT 458 10^3/uL (134-434); RBC 3.31 M/mm3 (3.60-5.2); RDW 16.2 % (11.6-15.6); WHITE BLOOD COUNT 6.9 K/mm3 (4.0-10.0)
[2023-01-10 07:36] LABS: MEAN PLT VOLUME 7.1 fl (7.5-11.1)
[2023-01-10] MEDS: oxyCODONE HCL 5 MG TABLET PO PRN (07:58)
[2023-01-10] MEDS: APIXABAN 5 MG TABLET PO SCH ×2 (10:04→21:12)
[2023-01-10] MEDS: BACITRACIN ZINC 15 GM TUBE TOPICAL OINTMENT TP SCH (10:05)
[2023-01-10] MEDS: FAMOTIDINE 20 MG TABLET PO PRN (10:05)
[2023-01-10] MEDS: predniSONE 5 MG TABLET (UD) PO SCH (10:05)
[2023-01-10] MEDS: GABAPENTIN 300 MG CAPSULE PO SCH ×2 (10:05→21:12)
[2023-01-10] MEDS: DOCUSATE SODIUM 100 MG CAPSULE (FP) PO PRN (10:07)
[2023-01-10] MEDS: ACETAMINOPHEN 1000 MG/100 ML BAG IVPB PRN (20:40)
[2023-01-11] MEDS: PIPERACILLIN/TAZOB 3.375 GM 3.375 GM in DEXTROSE 5%-WATER - 50 ML IVPB SCH ×3 (01:27→17:20)
[2023-01-11 07:44] LABS: BASO % 0.8 % (0-2.0); EOS % 2.6 % (0-4.5); HEMATOCRIT 26.7 % (32.4-45.2); HEMOGLOBIN 8.6 GM/dL (10.7-15.3); LYMPH % 29.1 % (8-40); MCH 26.5 pg (25.7-33.7); MCHC 32.3 g/dl (32.0-36.0); MEAN CELL VOLUME 81.9 fl (80-96); MEAN PLT VOLUME 7.4 fl (7.5-11.1); MONO % 8.8 % (3.8-10.2); NEUT % 58.7 % (42.8-82.8); PLATELET COUNT 499 10^3/uL (134-434); RBC 3.26 M/mm3 (3.60-5.2); WHITE BLOOD COUNT 6.8 K/mm3 (4.0-10.0)
[2023-01-11] MEDS: ACETAMINOPHEN 1000 MG/100 ML BAG IVPB PRN ×2 (07:57→22:18)
[2023-01-11] MEDS: LEVOTHYROXINE NA 25 MCG TABLET (FP) PO SCH (07:57)
[2023-01-11 08:06] LABS: CREATININE 0.8 mg/dL (0.55-1.3)
[2023-01-11] MEDS: INSULIN SLIDING SCALE (NOVOLOG) 1 VIAL SQ SCH ×4 (08:09→22:16)
[2023-01-11] MEDS: predniSONE 5 MG TABLET (UD) PO SCH (08:56)
[2023-01-11] MEDS: BACITRACIN ZINC 15 GM TUBE TOPICAL OINTMENT TP SCH (10:41)
[2023-01-11] MEDS: GABAPENTIN 300 MG CAPSULE PO SCH ×2 (10:42→22:16)
[2023-01-11] MEDS: APIXABAN 5 MG TABLET PO SCH ×2 (10:42→22:16)
[2023-01-12] MEDS: PIPERACILLIN/TAZOB 3.375 GM 3.375 GM in DEXTROSE 5%-WATER - 50 ML IVPB SCH ×3 (01:39→17:06)
[2023-01-12] MEDS: ACETAMINOPHEN 1000 MG/100 ML BAG IVPB PRN ×2 (05:26→18:49)
[2023-01-12] MEDS: INSULIN SLIDING SCALE (NOVOLOG) 1 VIAL SQ SCH ×4 (06:10→22:17)
[2023-01-12] MEDS: LEVOTHYROXINE NA 25 MCG TABLET (FP) PO SCH (06:12)
[2023-01-12] MEDS: APIXABAN 5 MG TABLET PO SCH ×2 (11:01→22:17)
[2023-01-12] MEDS: predniSONE 5 MG TABLET (UD) PO SCH (11:01)
[2023-01-12] MEDS: GABAPENTIN 300 MG CAPSULE PO SCH ×2 (11:05→22:17)
[2023-01-12] MEDS: NAPROXEN 250 MG TABLET PO SCH ×2 (14:18→22:16)
[2023-01-12] MEDS: FAMOTIDINE 20 MG TABLET PO PRN (15:29)
[2023-01-12] MEDS ORDERED: INSULIN (NOVOLOG) ASPART 100 UNITS/ML 10ML VIAL ONE (16:44)
[2023-01-12] MEDS: BACITRACIN ZINC 15 GM TUBE TOPICAL OINTMENT TP SCH (17:06)
[2023-01-13] MEDS: PIPERACILLIN/TAZOB 3.375 GM 3.375 GM in DEXTROSE 5%-WATER - 50 ML IVPB SCH ×3 (01:23→17:03)
[2023-01-13] MEDS: INSULIN SLIDING SCALE (NOVOLOG) 1 VIAL SQ SCH ×4 (06:03→23:37)
[2023-01-13] MEDS: LEVOTHYROXINE NA 25 MCG TABLET (FP) PO SCH (06:04)
[2023-01-13] MEDS: predniSONE 5 MG TABLET (UD) PO SCH (08:21)
[2023-01-13 09:20] LABS: BASO % 0.9 % (0-2.0); HEMATOCRIT 27.7 % (32.4-45.2); HEMOGLOBIN 9.1 GM/dL (10.7-15.3); LYMPH % 27.7 % (8-40); MCH 26.8 pg (25.7-33.7); MCHC 32.6 g/dl (32.0-36.0); MEAN CELL VOLUME 82.3 fl (80-96); MEAN PLT VOLUME 7.4 fl (7.5-11.1); MONO % 6.6 % (3.8-10.2); NEUT % 61.8 % (42.8-82.8); PLATELET COUNT 607 10^3/uL (134-434); RBC 3.37 M/mm3 (3.60-5.2); WHITE BLOOD COUNT 6.4 K/mm3 (4.0-10.0)
[2023-01-13 09:37] LABS: BLOOD UREA NITROGEN 18.3 mg/dL (7-18); CALCIUM 9.3 mg/dL (8.5-10.1)
[2023-01-13 09:40] LABS: CREATININE 0.9 mg/dL (0.55-1.3)
[2023-01-13] MEDS: APIXABAN 5 MG TABLET PO SCH ×2 (10:16→23:27)
[2023-01-13] MEDS: GABAPENTIN 300 MG CAPSULE PO SCH ×2 (10:17→23:27)
[2023-01-13] MEDS: NAPROXEN 250 MG TABLET PO SCH ×3 (10:17→23:26)
[2023-01-13] MEDS: BACITRACIN ZINC 15 GM TUBE TOPICAL OINTMENT TP SCH (16:32)
[2023-01-13] MEDS: DOCUSATE SODIUM 100 MG CAPSULE (FP) PO PRN (18:56)
[2023-01-14] MEDS: PIPERACILLIN/TAZOB 3.375 GM 3.375 GM in DEXTROSE 5%-WATER - 50 ML IVPB SCH ×2 (02:57→10:11)
[2023-01-14] MEDS: INSULIN SLIDING SCALE (NOVOLOG) 1 VIAL SQ SCH ×5 (06:14→22:38)
[2023-01-14] MEDS: LEVOTHYROXINE NA 25 MCG TABLET (FP) PO SCH (06:14)
[2023-01-14 09:08] LABS: BASO % 0.5 % (0-2.0); EOS % 3.1 % (0-4.5); HEMATOCRIT 25.3 % (32.4-45.2); HEMOGLOBIN 8.1 GM/dL (10.7-15.3); LYMPH % 35.5 % (8-40); MCH 26.4 pg (25.7-33.7); MEAN CELL VOLUME 82.4 fl (80-96); MEAN PLT VOLUME 7.3 fl (7.5-11.1); MONO % 8.1 % (3.8-10.2); NEUT % 52.8 % (42.8-82.8); PLATELET COUNT 493 10^3/uL (134-434); RBC 3.07 M/mm3 (3.60-5.2); WHITE BLOOD COUNT 6.4 K/mm3 (4.0-10.0)
[2023-01-14] MEDS: predniSONE 5 MG TABLET (UD) PO SCH (10:12)
[2023-01-14] MEDS: APIXABAN 5 MG TABLET PO SCH ×2 (10:12→22:32)
[2023-01-14] MEDS: GABAPENTIN 300 MG CAPSULE PO SCH ×2 (10:12→22:34)
[2023-01-14] MEDS: NAPROXEN 250 MG TABLET PO SCH ×2 (10:12→22:32)
[2023-01-14] MEDS: BACITRACIN ZINC 15 GM TUBE TOPICAL OINTMENT TP SCH (10:14)
[2023-01-14] MEDS: CEFTRIAXONE 2 GM in DEXTROSE 5%-WATER 100 ML IVPB SCH (14:33)
[2023-01-15] MEDS: LEVOTHYROXINE NA 25 MCG TABLET (FP) PO SCH (06:07)
[2023-01-15] MEDS: INSULIN SLIDING SCALE (NOVOLOG) 1 VIAL SQ SCH ×4 (06:07→23:09)
[2023-01-15] MEDS: predniSONE 5 MG TABLET (UD) PO SCH (08:33)
[2023-01-15] MEDS: NAPROXEN 250 MG TABLET PO SCH ×2 (10:16→23:10)
[2023-01-15] MEDS: GABAPENTIN 300 MG CAPSULE PO SCH ×2 (10:17→23:10)
[2023-01-15] MEDS: CEFTRIAXONE 2 GM in DEXTROSE 5%-WATER 100 ML IVPB SCH (10:17)
[2023-01-15] MEDS: APIXABAN 5 MG TABLET PO SCH ×2 (10:17→23:11)
[2023-01-15] MEDS: BACITRACIN ZINC 15 GM TUBE TOPICAL OINTMENT TP SCH (15:35)
[2023-01-15] MEDS ORDERED: INSULIN (NOVOLOG) ASPART 100 UNITS/ML 10ML VIAL ONE ×2 (16:10→23:56)
[2023-01-16] MEDS: LEVOTHYROXINE NA 25 MCG TABLET (FP) PO SCH (06:54)
[2023-01-16] MEDS: INSULIN SLIDING SCALE (NOVOLOG) 1 VIAL SQ SCH ×2 (06:55→12:23)
[2023-01-16] MEDS: predniSONE 5 MG TABLET (UD) PO SCH (07:52)
[2023-01-16] MEDS: NAPROXEN 250 MG TABLET PO SCH (09:40)
[2023-01-16] MEDS: CEFTRIAXONE 2 GM in DEXTROSE 5%-WATER 100 ML IVPB SCH (10:31)
[2023-01-16] MEDS: GABAPENTIN 300 MG CAPSULE PO SCH (10:32)
[2023-01-16] MEDS: APIXABAN 5 MG TABLET PO SCH (10:32)
[2023-01-16] MEDS ORDERED: INSULIN (NOVOLOG) ASPART 100 UNITS/ML 10ML VIAL ONE (12:18)
[2023-01-16] MEDS: BACITRACIN ZINC 15 GM TUBE TOPICAL OINTMENT TP SCH (12:49)
[2023-01-16 14:01] VITALS: BP 131/59; PULSE 79; RESP 18; TEMP 97.2
== END 2023-01-16 14:53 | disposition home health service (06) | DRG 581 ==
LOC: JER 16:25 → JERBED 19:55 → J7W 01-09 04:32
PROVIDERS: ADMIT Internal Medicine; ATTEND Internal Medicine
PROC: 0JDQ0ZZ Extraction of Right Foot Subcutaneous Tissue and Fascia, Open Approach (ICD-10-PCS; 2023-01-09)
PROC: 0J9Q0ZZ Drainage of Right Foot Subcutaneous Tissue and Fascia, Open Approach (ICD-10-PCS; principal; 2023-01-09 13:00)
DX: L03.115 Cellulitis of right lower limb (principal); J44.9 Chronic obstructive pulmonary disease, unspecified; E11.9 Type 2 diabetes mellitus without complications; E03.9 Hypothyroidism, unspecified; I10 Essential (primary) hypertension; E78.5 Hyperlipidemia, unspecified; Z79.4 Long term (current) use of insulin; Q66.89 Other specified congenital deformities of feet; M35.3 Polymyalgia rheumatica; M06.9 Rheumatoid arthritis, unspecified; I73.9 Peripheral vascular disease, unspecified
CPT/HCPCS: 0241U-QW; 36415; 71045-TC-FY; 73701-TC-RT; 73718-TC-RT; 80048; 80053; 82550; 82962; 83605; 83735; 84100; 84443; 85025; 85027; 85610; 85651; 85730; 86140; 87040; 87070; 87186; 87205; 93005; 93010; 94760; 97116-GP; 97162-GP; 99285-25; J0878; Q9967

== ENCOUNTER 2023-01-18 18:10 | Inpatient (IN) | payer OTHER ==
[2023-01-18] MEDS ORDERED: CEFTRIAXONE 1 GM in DEXTROSE 5%-WATER - 100 ML IVPB ONE (19:00)
[2023-01-18] MEDS ORDERED: CEFTRIAXONE 2 GM in DEXTROSE 5%-WATER - 100 ML IVPB ONE (20:19)
[2023-01-18] MEDS ORDERED: CEFTRIAXONE 2 GM/100 ML BAG IVPB ONE (20:41)
[2023-01-18 20:49] LABS: BASO % 0.7 % (0-2.0); EOS % 2.4 % (0-4.5); HEMATOCRIT 29.3 % (32.4-45.2); HEMOGLOBIN 9.3 GM/dL (10.7-15.3); LYMPH % 23.1 % (8-40); MCH 26.1 pg (25.7-33.7); MCHC 31.8 g/dl (32.0-36.0); MEAN CELL VOLUME 81.9 fl (80-96); MEAN PLT VOLUME 7.5 fl (7.5-11.1); MONO % 6.7 % (3.8-10.2); NEUT % 67.1 % (42.8-82.8); PLATELET COUNT 696 10^3/uL (134-434); RBC 3.58 M/mm3 (3.60-5.2); RDW 16.5 % (11.6-15.6); WHITE BLOOD COUNT 9.1 K/mm3 (4.0-10.0)
[2023-01-18 20:55] LABS: VENOUS BASE EXCESS -1.3 mmol/L (-2-2); VENOUS PCO2 47.9 mmHg (38-52); VENOUS PH 7.332 (7.310-7.410)
[2023-01-18 20:58] LABS: INR 1.48 (0.83-1.09); PROTHROMBIN TIME (PATIENT) 17.1 SEC (9.7-13.0)
[2023-01-18 21:01] LABS: ACTIVATED PTT 31.1 SECONDS (25.2-36.5)
[2023-01-18 21:08] LABS: CALCIUM 9.8 mg/dL (8.5-10.1)
[2023-01-18 21:09] LABS: ALBUMIN 2.8 g/dl (3.4-5.0); BLOOD UREA NITROGEN 27.7 mg/dL (7-18)
[2023-01-18 21:12] LABS: CREATININE 0.9 mg/dL (0.55-1.3)
[2023-01-18 21:14] LABS: BILIRUBIN,TOTAL 0.2 mg/dL (0.2-1); TOT PROT 7.3 g/dl (6.4-8.2)
[2023-01-19] MEDS ORDERED: MELATONIN 5 MG TABLETS PO PRN (02:30)
[2023-01-19] MEDS ORDERED: ACETAMINOPHEN 1000 MG/100 ML BAG IVPB PRN (02:30)
[2023-01-19 02:32] VITALS: BMI 22.6
[2023-01-19] MEDS ORDERED: POLYETHYLENE GLYCOL (HEALTHYLAX) 3350 17 GM PACKET PO PRN (02:34)
[2023-01-19] MEDS: INSULIN SLIDING SCALE (NOVOLOG) 1 VIAL SQ SCH ×4 (06:38→21:40)
[2023-01-19] MEDS: LEVOTHYROXINE NA 25 MCG TABLET (FP) PO SCH (06:39)
[2023-01-19 08:28] LABS: BASO % 0.7 % (0-2.0); EOS % 4.5 % (0-4.5); HEMATOCRIT 26.7 % (32.4-45.2); HEMOGLOBIN 8.8 GM/dL (10.7-15.3); LYMPH % 23.5 % (8-40); MCH 26.7 pg (25.7-33.7); MCHC 32.8 g/dl (32.0-36.0); MEAN CELL VOLUME 81.2 fl (80-96); MEAN PLT VOLUME 7.5 fl (7.5-11.1); MONO % 7.8 % (3.8-10.2); NEUT % 63.5 % (42.8-82.8); PLATELET COUNT 585 10^3/uL (134-434); RDW 16.3 % (11.6-15.6); WHITE BLOOD COUNT 8.2 K/mm3 (4.0-10.0)
[2023-01-19 08:42] LABS: CALCIUM 9.8 mg/dL (8.5-10.1)
[2023-01-19 08:43] LABS: BLOOD UREA NITROGEN 26.8 mg/dL (7-18); MAGNESIUM 2.2 mg/dL (1.8-2.4)
[2023-01-19 08:46] LABS: CREATININE 0.8 mg/dL (0.55-1.3); PHOSPHOROUS 3.5 mg/dL (2.5-4.9)
[2023-01-19 09:35] LABS: EPI CELLS 11 /uL (0-25.1); HYALINE CASTS 1 /uL (0-3.1); PH,URINE 5.5 (5.0-8.0); URINE APPEARANCE CLOUDY; URINE BACTERIA 10 /uL (0-1359); URINE BILIRUBIN NEGATIVE (NEGATIVE); URINE COLOR YELLOW; URINE GLUCOSE (UA) NEGATIVE (NEGATIVE); URINE KETONE NEGATIVE (NEGATIVE); URINE LEUK ESTERASE TRACE (NEGATIVE); URINE NITRITE NEGATIVE (NEGATIVE); URINE PROTEIN 1+ (NEGATIVE); URINE UROBILINOGEN 0.2 mg/dL (0.2-1.0); URINE WBC 92 /uL (0-25.8)
[2023-01-19] MEDS ORDERED: ENOXAPARIN NA (PORCINE) 30 MG/0.3 ML DISP.SYRIN SQ SCH (10:00)
[2023-01-19 10:01] LABS: URINE RBC 1793.7 /uL (0-23.9)
[2023-01-19] MEDS: predniSONE 5 MG TABLET (UD) PO SCH (10:52)
[2023-01-19] MEDS: GABAPENTIN 300 MG CAPSULE PO SCH (10:53)
[2023-01-19] MEDS: FAMOTIDINE 20 MG TABLET PO SCH ×2 (10:53→21:41)
[2023-01-19] MEDS ORDERED: INSULIN (NOVOLOG) ASPART 100 UNITS/ML 10ML VIAL ONE (12:02)
[2023-01-19] MEDS: DOCUSATE SODIUM 100 MG CAPSULE (FP) PO SCH ×2 (12:08→21:41)
[2023-01-19] MEDS: APIXABAN 5 MG TABLET PO SCH ×2 (13:54→21:41)
[2023-01-19] MEDS: NAPROXEN 250 MG TABLET PO PRN (13:55)
[2023-01-19] MEDS: CEFTRIAXONE 2 GM in DEXTROSE 5%-WATER 100 ML IVPB SCH (16:59)
[2023-01-20] MEDS: INSULIN SLIDING SCALE (NOVOLOG) 1 VIAL SQ SCH ×4 (06:03→22:14)
[2023-01-20] MEDS: LEVOTHYROXINE NA 25 MCG TABLET (FP) PO SCH (06:04)
[2023-01-20 09:19] LABS: BASO % 0.9 % (0-2.0); EOS % 2.9 % (0-4.5); HEMATOCRIT 26.2 % (32.4-45.2); HEMOGLOBIN 8.7 GM/dL (10.7-15.3); LYMPH % 25.7 % (8-40); MCH 26.8 pg (25.7-33.7); MEAN CELL VOLUME 81.1 fl (80-96); MEAN PLT VOLUME 7.7 fl (7.5-11.1); MONO % 6.5 % (3.8-10.2); PLATELET COUNT 643 10^3/uL (134-434); RBC 3.24 M/mm3 (3.60-5.2); RDW 16.4 % (11.6-15.6); WHITE BLOOD COUNT 9.8 K/mm3 (4.0-10.0)
[2023-01-20 09:56] LABS: BLOOD UREA NITROGEN 21.5 mg/dL (7-18); CALCIUM 9.8 mg/dL (8.5-10.1)
[2023-01-20 09:57] LABS: ALBUMIN 2.6 g/dl (3.4-5.0)
[2023-01-20 10:01] LABS: CREATININE 0.8 mg/dL (0.55-1.3); TOT PROT 6.7 g/dl (6.4-8.2)
[2023-01-20 10:02] LABS: BILIRUBIN,TOTAL 0.6 mg/dL (0.2-1)
[2023-01-20] MEDS: NAPROXEN 250 MG TABLET PO PRN ×2 (10:14→22:13)
[2023-01-20] MEDS: APIXABAN 5 MG TABLET PO SCH ×2 (10:14→21:55)
[2023-01-20] MEDS: GABAPENTIN 300 MG CAPSULE PO SCH (10:14)
[2023-01-20] MEDS: predniSONE 5 MG TABLET (UD) PO SCH (10:14)
[2023-01-20] MEDS: FAMOTIDINE 20 MG TABLET PO SCH ×2 (10:14→21:55)
[2023-01-20] MEDS: DOCUSATE SODIUM 100 MG CAPSULE (FP) PO SCH ×2 (10:14→21:55)
[2023-01-20] MEDS: CEFTRIAXONE 2 GM in DEXTROSE 5%-WATER 100 ML IVPB SCH (10:15)
[2023-01-20] MEDS ORDERED: INSULIN (NOVOLOG) ASPART 100 UNITS/ML 10ML VIAL ONE ×3 (13:11→22:12)
[2023-01-21] MEDS: LEVOTHYROXINE NA 25 MCG TABLET (FP) PO SCH (06:03)
[2023-01-21] MEDS: INSULIN SLIDING SCALE (NOVOLOG) 1 VIAL SQ SCH ×4 (06:03→23:16)
[2023-01-21] MEDS: CEFTRIAXONE 2 GM in DEXTROSE 5%-WATER 100 ML IVPB SCH (09:55)
[2023-01-21] MEDS: FAMOTIDINE 20 MG TABLET PO SCH ×2 (09:56→21:42)
[2023-01-21] MEDS: GABAPENTIN 300 MG CAPSULE PO SCH (09:56)
[2023-01-21] MEDS: APIXABAN 5 MG TABLET PO SCH ×2 (09:56→21:42)
[2023-01-21] MEDS: DOCUSATE SODIUM 100 MG CAPSULE (FP) PO SCH ×2 (09:56→21:42)
[2023-01-21] MEDS: predniSONE 5 MG TABLET (UD) PO SCH (09:56)
[2023-01-21] MEDS ORDERED: INSULIN (NOVOLOG) ASPART 100 UNITS/ML 10ML VIAL ONE ×3 (11:37→21:54)
[2023-01-21] MEDS: NAPROXEN 250 MG TABLET PO PRN ×2 (17:20→21:42)
[2023-01-22] MEDS: LEVOTHYROXINE NA 25 MCG TABLET (FP) PO SCH (06:23)
[2023-01-22] MEDS: INSULIN SLIDING SCALE (NOVOLOG) 1 VIAL SQ SCH ×4 (06:27→22:27)
[2023-01-22 08:34] LABS: BASO % 0.8 % (0-2.0); EOS % 3.1 % (0-4.5); HEMATOCRIT 26.3 % (32.4-45.2); HEMOGLOBIN 8.6 GM/dL (10.7-15.3); LYMPH % 29.1 % (8-40); MCH 26.6 pg (25.7-33.7); MCHC 32.8 g/dl (32.0-36.0); MEAN CELL VOLUME 81.1 fl (80-96); MEAN PLT VOLUME 7.4 fl (7.5-11.1); MONO % 7.4 % (3.8-10.2); NEUT % 59.6 % (42.8-82.8); PLATELET COUNT 579 10^3/uL (134-434); RBC 3.25 M/mm3 (3.60-5.2); RDW 15.9 % (11.6-15.6)
[2023-01-22 09:13] LABS: CALCIUM 9.8 mg/dL (8.5-10.1)
[2023-01-22 09:14] LABS: BLOOD UREA NITROGEN 21.4 mg/dL (7-18)
[2023-01-22 09:17] LABS: CREATININE 0.8 mg/dL (0.55-1.3)
[2023-01-22] MEDS: DOCUSATE SODIUM 100 MG CAPSULE (FP) PO SCH ×2 (10:41→22:21)
[2023-01-22] MEDS: APIXABAN 5 MG TABLET PO SCH ×2 (10:41→22:21)
[2023-01-22] MEDS: CEFTRIAXONE 2 GM in DEXTROSE 5%-WATER 100 ML IVPB SCH (10:41)
[2023-01-22] MEDS: GABAPENTIN 300 MG CAPSULE PO SCH (10:42)
[2023-01-22] MEDS: predniSONE 5 MG TABLET (UD) PO SCH (10:42)
[2023-01-22] MEDS: FAMOTIDINE 20 MG TABLET PO SCH ×2 (10:42→22:21)
[2023-01-22] MEDS: NAPROXEN 250 MG TABLET PO PRN ×2 (11:43→22:26)
[2023-01-22] MEDS ORDERED: INSULIN (NOVOLOG) ASPART 100 UNITS/ML 10ML VIAL ONE ×3 (17:01→21:07)
[2023-01-23] MEDS: LEVOTHYROXINE NA 25 MCG TABLET (FP) PO SCH (06:22)
[2023-01-23] MEDS: INSULIN SLIDING SCALE (NOVOLOG) 1 VIAL SQ SCH ×4 (06:22→23:40)
[2023-01-23] MEDS: FAMOTIDINE 20 MG TABLET PO SCH ×2 (10:54→21:28)
[2023-01-23] MEDS: APIXABAN 5 MG TABLET PO SCH ×2 (10:54→21:28)
[2023-01-23] MEDS: predniSONE 5 MG TABLET (UD) PO SCH (10:54)
[2023-01-23] MEDS: CEFTRIAXONE 2 GM in DEXTROSE 5%-WATER 100 ML IVPB SCH (10:54)
[2023-01-23] MEDS: GABAPENTIN 300 MG CAPSULE PO SCH (10:54)
[2023-01-23] MEDS: DOCUSATE SODIUM 100 MG CAPSULE (FP) PO SCH ×2 (10:55→21:28)
[2023-01-23] MEDS ORDERED: BUPIVACAINE HCL/PF 0.25% (2.5MG/ML) 10 ML VIAL ONE (12:18)
[2023-01-23] MEDS ORDERED: ceFAZolin SODIUM 1 GM VIAL ONE (12:54)
[2023-01-23] MEDS ORDERED: ceFAZolin SODIUM 1 GM VIAL IVPB ONE ×3 (13:22→13:50)
[2023-01-23] MEDS ORDERED: PROPOFOL 20 ML ONE (13:32)
[2023-01-23] MEDS ORDERED: PROMETHAZINE HCL 25 MG/1 ML VIAL IVPB PRN (14:05)
[2023-01-23] MEDS ORDERED: MELATONIN 5 MG TABLETS PO PRN (14:19)
[2023-01-23] MEDS ORDERED: POLYETHYLENE GLYCOL (HEALTHYLAX) 3350 17 GM PACKET PO PRN (14:19)
[2023-01-23] MEDS ORDERED: INSULIN (NOVOLOG) ASPART 100 UNITS/ML 10ML VIAL ONE ×3 (16:55→20:26)
[2023-01-23] MEDS: NAPROXEN 250 MG TABLET PO PRN ×2 (21:34→21:36)
[2023-01-24] MEDS: LEVOTHYROXINE NA 25 MCG TABLET (FP) PO SCH (06:32)
[2023-01-24] MEDS: INSULIN SLIDING SCALE (NOVOLOG) 1 VIAL SQ SCH ×4 (06:33→22:02)
[2023-01-24 08:56] LABS: BASO % 0.8 % (0-2.0); HEMATOCRIT 25.5 % (32.4-45.2); HEMOGLOBIN 8.6 GM/dL (10.7-15.3); LYMPH % 25.4 % (8-40); MCH 27.6 pg (25.7-33.7); MCHC 33.8 g/dl (32.0-36.0); MEAN CELL VOLUME 81.8 fl (80-96); MONO % 8.1 % (3.8-10.2); NEUT % 61.7 % (42.8-82.8); PLATELET COUNT 586 10^3/uL (134-434); RBC 3.11 M/mm3 (3.60-5.2); RDW 16.1 % (11.6-15.6); WHITE BLOOD COUNT 8.5 K/mm3 (4.0-10.0)
[2023-01-24 09:14] LABS: CALCIUM 9.6 mg/dL (8.5-10.1)
[2023-01-24 09:15] LABS: BLOOD UREA NITROGEN 17.3 mg/dL (7-18)
[2023-01-24 09:18] LABS: CREATININE 0.7 mg/dL (0.55-1.3)
[2023-01-24] MEDS: DOCUSATE SODIUM 100 MG CAPSULE (FP) PO SCH ×2 (09:50→22:03)
[2023-01-24] MEDS: CEFTRIAXONE 2 GM in DEXTROSE 5%-WATER 100 ML IVPB SCH (09:50)
[2023-01-24] MEDS: FAMOTIDINE 20 MG TABLET PO SCH ×2 (09:51→22:00)
[2023-01-24] MEDS: GABAPENTIN 300 MG CAPSULE PO SCH (09:51)
[2023-01-24] MEDS: NAPROXEN 250 MG TABLET PO PRN ×2 (09:51→22:01)
[2023-01-24] MEDS: predniSONE 5 MG TABLET (UD) PO SCH (09:51)
[2023-01-24] MEDS: APIXABAN 5 MG TABLET PO SCH ×2 (09:51→22:00)
[2023-01-24] MEDS ORDERED: INSULIN (NOVOLOG) ASPART 100 UNITS/ML 10ML VIAL ONE (20:28)
[2023-01-24] MEDS: ACETAMINOPHEN 325 MG TABLET (FP) PO PRN (22:01)
[2023-01-24] MEDS: SILVER SULFADIAZINE 1% TOP CREAM 50 GM JAR TP SCH (22:40)
[2023-01-25] MEDS: INSULIN SLIDING SCALE (NOVOLOG) 1 VIAL SQ SCH ×4 (06:10→22:33)
[2023-01-25] MEDS: LEVOTHYROXINE NA 25 MCG TABLET (FP) PO SCH (06:11)
[2023-01-25] MEDS: ACETAMINOPHEN 325 MG TABLET (FP) PO PRN (10:21)
[2023-01-25] MEDS: APIXABAN 5 MG TABLET PO SCH ×2 (10:24→22:18)
[2023-01-25] MEDS: predniSONE 5 MG TABLET (UD) PO SCH (10:24)
[2023-01-25] MEDS: FAMOTIDINE 20 MG TABLET PO SCH ×2 (10:24→22:18)
[2023-01-25] MEDS: DOCUSATE SODIUM 100 MG CAPSULE (FP) PO SCH ×2 (10:24→22:18)
[2023-01-25] MEDS: CEFTRIAXONE 2 GM in DEXTROSE 5%-WATER 100 ML IVPB SCH (10:24)
[2023-01-25] MEDS: GABAPENTIN 300 MG CAPSULE PO SCH (10:24)
[2023-01-25] MEDS: SILVER SULFADIAZINE 1% TOP CREAM 50 GM JAR TP SCH ×3 (10:25→22:27)
[2023-01-25] MEDS ORDERED: INSULIN (NOVOLOG) ASPART 100 UNITS/ML 10ML VIAL ONE ×2 (12:03→21:38)
[2023-01-25] MEDS: NAPROXEN 250 MG TABLET PO PRN (22:22)
[2023-01-26] MEDS: LEVOTHYROXINE NA 25 MCG TABLET (FP) PO SCH (06:37)
[2023-01-26] MEDS: ACETAMINOPHEN 325 MG TABLET (FP) PO PRN (06:40)
[2023-01-26] MEDS: GABAPENTIN 300 MG CAPSULE PO SCH (09:20)
[2023-01-26] MEDS: DOCUSATE SODIUM 100 MG CAPSULE (FP) PO SCH ×2 (09:20→22:07)
[2023-01-26] MEDS: FAMOTIDINE 20 MG TABLET PO SCH ×2 (09:20→22:07)
[2023-01-26] MEDS: APIXABAN 5 MG TABLET PO SCH ×2 (09:20→22:07)
[2023-01-26] MEDS: predniSONE 5 MG TABLET (UD) PO SCH (09:21)
[2023-01-26] MEDS: CEFTRIAXONE 2 GM in DEXTROSE 5%-WATER 100 ML IVPB SCH (09:21)
[2023-01-26] MEDS: NAPROXEN 250 MG TABLET PO PRN (09:50)
[2023-01-26] MEDS: INSULIN SLIDING SCALE (NOVOLOG) 1 VIAL SQ SCH ×4 (09:52→22:21)
[2023-01-26] MEDS: SILVER SULFADIAZINE 1% TOP CREAM 50 GM JAR TP SCH ×2 (11:34→22:10)
[2023-01-26] MEDS ORDERED: INSULIN (NOVOLOG) ASPART 100 UNITS/ML 10ML VIAL ONE (22:15)
[2023-01-27] MEDS: NAPROXEN 250 MG TABLET PO PRN ×2 (00:16→22:22)
[2023-01-27] MEDS: ACETAMINOPHEN 325 MG TABLET (FP) PO PRN ×2 (05:29→11:30)
[2023-01-27] MEDS: INSULIN SLIDING SCALE (NOVOLOG) 1 VIAL SQ SCH ×4 (07:28→22:24)
[2023-01-27] MEDS: LEVOTHYROXINE NA 25 MCG TABLET (FP) PO SCH (07:28)
[2023-01-27] MEDS: APIXABAN 5 MG TABLET PO SCH ×2 (11:30→22:23)
[2023-01-27] MEDS: DOCUSATE SODIUM 100 MG CAPSULE (FP) PO SCH ×2 (11:30→22:23)
[2023-01-27] MEDS: GABAPENTIN 300 MG CAPSULE PO SCH (11:30)
[2023-01-27] MEDS: FAMOTIDINE 20 MG TABLET PO SCH ×2 (11:30→22:23)
[2023-01-27] MEDS: predniSONE 5 MG TABLET (UD) PO SCH (11:30)
[2023-01-27] MEDS: CEFTRIAXONE 2 GM in DEXTROSE 5%-WATER 100 ML IVPB SCH (11:32)
[2023-01-27] MEDS: SILVER SULFADIAZINE 1% TOP CREAM 50 GM JAR TP SCH ×2 (11:33→22:24)
[2023-01-27 13:28] LABS: EOS % 4.1 % (0-4.5); HEMATOCRIT 25.6 % (32.4-45.2); HEMOGLOBIN 8.5 GM/dL (10.7-15.3); LYMPH % 25.3 % (8-40); MCHC 33.2 g/dl (32.0-36.0); MEAN CELL VOLUME 81.4 fl (80-96); MEAN PLT VOLUME 8.2 fl (7.5-11.1); MONO % 7.1 % (3.8-10.2); NEUT % 62.5 % (42.8-82.8); PLATELET COUNT 579 10^3/uL (134-434); RBC 3.15 M/mm3 (3.60-5.2); RDW 16.1 % (11.6-15.6); WHITE BLOOD COUNT 8.4 K/mm3 (4.0-10.0)
[2023-01-27 13:57] LABS: CALCIUM 9.8 mg/dL (8.5-10.1)
[2023-01-27 13:58] LABS: BLOOD UREA NITROGEN 33.3 mg/dL (7-18)
[2023-01-27] MEDS: CLOTRIMAZOLE 1% VAGINAL CREAM WITH APPLICATOR 45 GM TUBE VG SCH (22:23)
[2023-01-28] MEDS: INSULIN SLIDING SCALE (NOVOLOG) 1 VIAL SQ SCH ×4 (06:17→21:23)
[2023-01-28] MEDS: LEVOTHYROXINE NA 25 MCG TABLET (FP) PO SCH (06:17)
[2023-01-28] MEDS: APIXABAN 5 MG TABLET PO SCH ×2 (10:31→21:19)
[2023-01-28] MEDS: ACETAMINOPHEN 325 MG TABLET (FP) PO PRN (10:31)
[2023-01-28] MEDS: GABAPENTIN 300 MG CAPSULE PO SCH (10:31)
[2023-01-28] MEDS: DOCUSATE SODIUM 100 MG CAPSULE (FP) PO SCH ×2 (10:33→21:19)
[2023-01-28] MEDS: predniSONE 5 MG TABLET (UD) PO SCH (10:33)
[2023-01-28] MEDS: FAMOTIDINE 20 MG TABLET PO SCH ×2 (10:33→21:19)
[2023-01-28] MEDS: CEFTRIAXONE 2 GM in DEXTROSE 5%-WATER 100 ML IVPB SCH (12:03)
[2023-01-28] MEDS ORDERED: INSULIN (NOVOLOG) ASPART 100 UNITS/ML 10ML VIAL ONE (16:33)
[2023-01-28] MEDS: AMOX TR/POT CLAV 875MG/125MG TABLETS (FP) PO SCH (16:38)
[2023-01-28] MEDS: SILVER SULFADIAZINE 1% TOP CREAM 50 GM JAR TP SCH ×2 (16:48→21:23)
[2023-01-28] MEDS: CLOTRIMAZOLE 1% VAGINAL CREAM WITH APPLICATOR 45 GM TUBE VG SCH (21:19)
[2023-01-29] MEDS: NAPROXEN 250 MG TABLET PO PRN (01:17)
[2023-01-29] MEDS: INSULIN SLIDING SCALE (NOVOLOG) 1 VIAL SQ SCH ×2 (06:04→11:59)
[2023-01-29] MEDS: LEVOTHYROXINE NA 25 MCG TABLET (FP) PO SCH (06:04)
[2023-01-29] MEDS: AMOX TR/POT CLAV 875MG/125MG TABLETS (FP) PO SCH (08:19)
[2023-01-29] MEDS: DOCUSATE SODIUM 100 MG CAPSULE (FP) PO SCH (10:13)
[2023-01-29] MEDS: APIXABAN 5 MG TABLET PO SCH (10:13)
[2023-01-29] MEDS: predniSONE 5 MG TABLET (UD) PO SCH (10:13)
[2023-01-29] MEDS: FAMOTIDINE 20 MG TABLET PO SCH (10:14)
[2023-01-29] MEDS: GABAPENTIN 300 MG CAPSULE PO SCH (10:14)
[2023-01-29] MEDS ORDERED: INSULIN (NOVOLOG) ASPART 100 UNITS/ML 10ML VIAL ONE (11:53)
[2023-01-29 13:35] VITALS: RESP 20
[2023-01-29 14:02] VITALS: BP 120/61; PULSE 103; TEMP 97.8
== END 2023-01-29 15:55 | disposition home health service (06) | DRG 581 ==
LOC: JER 18:10 → JERBED 22:04 → J7W 23:25
PROVIDERS: ADMIT Internal Medicine; ATTEND Internal Medicine
PROC: 0JDR0ZZ Extraction of Left Foot Subcutaneous Tissue and Fascia, Open Approach (ICD-10-PCS; 2023-01-23)
PROC: 3E10X8Z Irrigation of Skin and Mucous Membranes using Irrigating Substance (ICD-10-PCS; principal; 2023-01-23 13:00)
DX: L03.115 Cellulitis of right lower limb (principal); M06.9 Rheumatoid arthritis, unspecified; E78.5 Hyperlipidemia, unspecified; E03.9 Hypothyroidism, unspecified; M35.3 Polymyalgia rheumatica; J44.9 Chronic obstructive pulmonary disease, unspecified; Q66.89 Other specified congenital deformities of feet; I10 Essential (primary) hypertension; E11.51 Type 2 diabetes mellitus with diabetic peripheral angiopathy without gangrene; R19.7 Diarrhea, unspecified; L02.415 Cutaneous abscess of right lower limb; S91.301A Unspecified open wound, right foot, initial encounter
CPT/HCPCS: 36415; 71045-TC-FY; 73610-TC-RT-FY; 73630-TC-RT-FY; 80048; 80053; 81003; 82803; 82962; 83735; 84100; 85025; 85610; 85730; 86850; 86900; 86901; 87040; 87070; 87081; 87086; 87205; 87324; 87449; 93005; 93010; 94760; 97116-GP; 97162-GP; 99285-25; C9803-CS; U0003; U0005

== ENCOUNTER 2023-03-16 17:07 | Inpatient (IN) | payer OTHER ==
[2023-03-16] MEDS ORDERED: ACETAMINOPHEN 1000 MG/100 ML BAG IVPB ONE (18:47)
[2023-03-16] MEDS ORDERED: PIPERACILLIN/TAZOB 4.5 GM 4.5 GM in DEXTROSE 5%-WATER 100 ML IVPB ONE (19:33)
[2023-03-16] MEDS ORDERED: SODIUM CHLORIDE IVPB ONE (19:35)
[2023-03-16] MEDS ORDERED: DAPTOMYCIN IVPB ONE (19:35)
[2023-03-16 20:11] LABS: VENOUS BASE EXCESS -3.4 mmol/L (-2-2); VENOUS O2 SATURATION 77.5 % (70-80); VENOUS PCO2 44.4 mmHg (38-52); VENOUS PH 7.324 (7.310-7.410)
[2023-03-16 20:27] LABS: BASO % 0.5 % (0-2.0); EOS % 0.2 % (0-4.5); HEMATOCRIT 29.7 % (32.4-45.2); HEMOGLOBIN 9.4 GM/dL (10.7-15.3); LYMPH % 14.1 % (8-40); MCHC 31.6 g/dl (32.0-36.0); MEAN CELL VOLUME 79.2 fl (80-96); MEAN PLT VOLUME 7.8 fl (7.5-11.1); MONO % 5.7 % (3.8-10.2); NEUT % 79.5 % (42.8-82.8); PLATELET COUNT 687 10^3/uL (134-434); RBC 3.75 M/mm3 (3.60-5.2); RDW 15.4 % (11.6-15.6); WHITE BLOOD COUNT 10.5 K/mm3 (4.0-10.0)
[2023-03-16 20:31] LABS: POTASSIUM 4.6 mmol/L (3.5-5.1)
[2023-03-16 20:33] LABS: BLOOD UREA NITROGEN 34.5 mg/dL (7-18)
[2023-03-16 20:38] LABS: BILIRUBIN,TOTAL 0.2 mg/dL (0.2-1); TOT PROT 7.9 g/dl (6.4-8.2)
[2023-03-16 20:59] LABS: LACTIC ACID 3.3 mmol/L (0.4-2.0)
[2023-03-16] MEDS ORDERED: ACETAMINOPHEN INJECTION 100 ML IVPB ONE (21:01)
[2023-03-16 21:02] LABS: ERYTHROCYTE SEDIMENTATION RATE 106 mm/hr (0-30)
[2023-03-16] MEDS ORDERED: PIPERACILLIN/TAZOB 4.5 GM 4.5 GM/100 ML BAG IVPB ONE (21:02)
[2023-03-16] MEDS ORDERED: SODIUM CHLORIDE 0.9% 500 ML INFUS.BAG IV ONE (21:25)
[2023-03-16] MEDS ORDERED: POLYETHYLENE GLYCOL (HEALTHYLAX) 3350 17 GM PACKET PO PRN (21:44)
[2023-03-16] MEDS ORDERED: DOCUSATE SODIUM 100 MG CAPSULE (FP) PO PRN (21:46)
[2023-03-16] MEDS ORDERED: FAMOTIDINE 20 MG TABLET PO SCH (22:00)
[2023-03-16 22:17] LABS: MAGNESIUM 2.1 mg/dL (1.8-2.4)
[2023-03-16] MEDS: INSULIN SLIDING SCALE (NOVOLOG) 1 VIAL SQ SCH (22:18)
[2023-03-16] MEDS: SODIUM CHLORIDE 1,000 ML IV SCH (22:18)
[2023-03-16 22:21] LABS: PHOSPHOROUS 3.8 mg/dL (2.5-4.9)
[2023-03-17] MEDS: PIPERACILLIN/TAZOB 3.375 GM 3.375 GM in DEXTROSE 5%-WATER - 50 ML IVPB SCH ×4 (02:20→21:10)
[2023-03-17] MEDS ORDERED: PIPERACILLIN/TAZOB 3.375 GM 3.375 GM in DEXTROSE 5%-WATER - 50 ML IVPB SCH (03:00)
[2023-03-17 04:51] VITALS: BMI 20.5
[2023-03-17] MEDS: INSULIN SLIDING SCALE (NOVOLOG) 1 VIAL SQ SCH ×4 (07:10→21:57)
[2023-03-17 07:43] LABS: EOS % 1.4 % (0-4.5); HEMATOCRIT 26.6 % (32.4-45.2); HEMOGLOBIN 8.7 GM/dL (10.7-15.3); LYMPH % 18.8 % (8-40); MCH 25.8 pg (25.7-33.7); MCHC 32.6 g/dl (32.0-36.0); MEAN PLT VOLUME 7.9 fl (7.5-11.1); MONO % 7.3 % (3.8-10.2); NEUT % 71.5 % (42.8-82.8); PLATELET COUNT 578 10^3/uL (134-434); RBC 3.37 M/mm3 (3.60-5.2); RDW 14.9 % (11.6-15.6); WHITE BLOOD COUNT 8.6 K/mm3 (4.0-10.0)
[2023-03-17 07:50] LABS: INR 1.28 (0.83-1.09); PROTHROMBIN TIME (PATIENT) 14.8 SEC (9.7-13.0)
[2023-03-17 07:53] LABS: ACTIVATED PTT 28.5 SECONDS (25.2-36.5)
[2023-03-17 07:57] LABS: POTASSIUM 4.2 mmol/L (3.5-5.1)
[2023-03-17 07:58] LABS: CALCIUM 9.7 mg/dL (8.5-10.1)
[2023-03-17 08:02] LABS: CREATININE 0.9 mg/dL (0.55-1.3)
[2023-03-17] MEDS: predniSONE 5 MG TABLET (UD) PO SCH (09:53)
[2023-03-17] MEDS: GABAPENTIN 300 MG CAPSULE PO SCH (09:53)
[2023-03-17] MEDS: LEVOTHYROXINE NA 25 MCG TABLET (FP) PO SCH (09:54)
[2023-03-17] MEDS: FAMOTIDINE 20 MG TABLET PO SCH (09:54)
[2023-03-17] MEDS: PANTOPRAZOLE SODIUM 40 MG VIAL IVPUSH SCH (09:56)
[2023-03-17] MEDS: ACETAMINOPHEN 1000 MG/100 ML BAG IVPB PRN ×2 (10:35→21:53)
[2023-03-17] MEDS ORDERED: INSULIN (NOVOLOG) ASPART 100 UNITS/ML 10ML VIAL ONE ×3 (12:17→21:00)
[2023-03-17] MEDS: CEFTRIAXONE 2 GM in DEXTROSE 5%-WATER - 50 ML IVPB SCH (13:45)
[2023-03-17] MEDS: SODIUM CHLORIDE 1,000 ML IV SCH (21:14)
[2023-03-17] MEDS ORDERED: SODIUM CHLORIDE IVPB SCH (22:00)
[2023-03-17] MEDS ORDERED: DAPTOMYCIN IVPB SCH (22:00)
[2023-03-18] MEDS ORDERED: ACETAMINOPHEN 325 MG TABLET (FP) PO PRN ×2 (03:00→11:00)
[2023-03-18] MEDS: INSULIN SLIDING SCALE (NOVOLOG) 1 VIAL SQ SCH ×4 (06:18→21:47)
[2023-03-18] MEDS: FAMOTIDINE 20 MG TABLET PO SCH (09:44)
[2023-03-18] MEDS: predniSONE 5 MG TABLET (UD) PO SCH (09:44)
[2023-03-18] MEDS: GABAPENTIN 300 MG CAPSULE PO SCH (09:44)
[2023-03-18] MEDS: CEFTRIAXONE 2 GM in DEXTROSE 5%-WATER - 50 ML IVPB SCH (09:45)
[2023-03-18] MEDS: LEVOTHYROXINE NA 25 MCG TABLET (FP) PO SCH (09:45)
[2023-03-18] MEDS: PANTOPRAZOLE SODIUM 40 MG VIAL IVPUSH SCH (09:45)
[2023-03-18] MEDS: AMINO ACIDS/PROTEIN HYDROLYS 30 ML LIQUID.PKT PO SCH (10:00)
[2023-03-18] MEDS: MULTIVITAMINS (DAILY MVI) TABLET (FP) PO SCH (10:48)
[2023-03-18] MEDS: ASCORBIC ACID 500 MG TABLET (FP) PO SCH (10:48)
[2023-03-18] MEDS: oxyCODONE HCL 5 MG TABLET PO PRN ×2 (12:04→21:37)
[2023-03-18] MEDS ORDERED: INSULIN (NOVOLOG) ASPART 100 UNITS/ML 10ML VIAL ONE (21:30)
[2023-03-18] MEDS: APIXABAN 2.5 MG TABLET PO SCH (21:37)
[2023-03-18] MEDS ORDERED: PATIENT'S OWN MEDICATION (NON-FORMULARY) (Insulin Lispro Protamin/Lispro [Humalog Mix 50-5 SQ SCH (22:00)
[2023-03-19] MEDS: oxyCODONE HCL 5 MG TABLET PO PRN (07:09)
[2023-03-19] MEDS: INSULIN SLIDING SCALE (NOVOLOG) 1 VIAL SQ SCH ×4 (07:12→21:35)
[2023-03-19] MEDS: AMINO ACIDS/PROTEIN HYDROLYS 30 ML LIQUID.PKT PO SCH (09:45)
[2023-03-19] MEDS: CEFTRIAXONE 2 GM in DEXTROSE 5%-WATER - 50 ML IVPB SCH (09:46)
[2023-03-19] MEDS: PANTOPRAZOLE SODIUM 40 MG VIAL IVPUSH SCH (09:46)
[2023-03-19] MEDS: MULTIVITAMINS (DAILY MVI) TABLET (FP) PO SCH (09:48)
[2023-03-19] MEDS: APIXABAN 2.5 MG TABLET PO SCH ×2 (09:48→21:34)
[2023-03-19] MEDS: FAMOTIDINE 20 MG TABLET PO SCH (09:48)
[2023-03-19] MEDS: GABAPENTIN 300 MG CAPSULE PO SCH (09:48)
[2023-03-19] MEDS: predniSONE 5 MG TABLET (UD) PO SCH (09:48)
[2023-03-19] MEDS: ASCORBIC ACID 500 MG TABLET (FP) PO SCH (09:49)
[2023-03-19] MEDS ORDERED: INSULIN (NOVOLOG) ASPART 100 UNITS/ML 10ML VIAL ONE ×2 (11:11→20:52)
[2023-03-19] MEDS ORDERED: LEVOTHYROXINE NA 25 MCG TABLET (FP) PO SCH (11:59)
[2023-03-19] MEDS: LEVOTHYROXINE NA 25 MCG TABLET (FP) PO SCH (12:54)
[2023-03-19] MEDS: ACETAMINOPHEN 325 MG TABLET (FP) PO PRN ×2 (13:06→21:35)
[2023-03-19] MEDS ORDERED: oxyCODONE HCL 5 MG TABLET PO PRN (14:09)
[2023-03-19] MEDS: MUPIROCIN CA 2% TOPICAL CREAM 15 GM TUBE TP SCH (21:36)
[2023-03-20] MEDS: MUPIROCIN CA 2% TOPICAL CREAM 15 GM TUBE TP SCH ×5 (06:30→22:35)
[2023-03-20] MEDS: INSULIN SLIDING SCALE (NOVOLOG) 1 VIAL SQ SCH ×4 (06:34→22:11)
[2023-03-20] MEDS: AMINO ACIDS/PROTEIN HYDROLYS 30 ML LIQUID.PKT PO SCH (07:53)
[2023-03-20] MEDS: CEFTRIAXONE 2 GM in DEXTROSE 5%-WATER - 50 ML IVPB SCH (09:26)
[2023-03-20] MEDS: FAMOTIDINE 20 MG TABLET PO SCH (09:26)
[2023-03-20] MEDS: MULTIVITAMINS (DAILY MVI) TABLET (FP) PO SCH (09:26)
[2023-03-20] MEDS: ASCORBIC ACID 500 MG TABLET (FP) PO SCH (09:27)
[2023-03-20] MEDS: predniSONE 5 MG TABLET (UD) PO SCH (09:27)
[2023-03-20] MEDS: GABAPENTIN 300 MG CAPSULE PO SCH (09:27)
[2023-03-20] MEDS: APIXABAN 2.5 MG TABLET PO SCH ×2 (09:56→22:11)
[2023-03-20] MEDS ORDERED: PANTOPRAZOLE 40 MG TABLET PO SCH (10:00)
[2023-03-20] MEDS ORDERED: GENTAMICIN SO4 80 MG/2 ML VIAL ONE (13:40)
[2023-03-20] MEDS ORDERED: PROPOFOL 20 ML ONE (13:50)
[2023-03-20] MEDS ORDERED: MIDAZOLAM HCL 2 MG/2 ML SINGLE DOSE VIAL ONE (13:50)
[2023-03-20] MEDS ORDERED: ONDANSETRON 4 MG/2 ML VIAL IVPUSH PRN (14:02)
[2023-03-20] MEDS ORDERED: PROMETHAZINE HCL 25 MG/1 ML VIAL IVPB PRN (14:02)
[2023-03-20] MEDS ORDERED: GENTAMICIN SO4 0.1% TOPICAL OINTMENT 15 GM/TUBE TUBE TP ONE ×3 (14:15→14:57)
[2023-03-20] MEDS ORDERED: LACTATED RINGERS SOLUTION 1,000 ML IV SCH (14:15)
[2023-03-20] MEDS ORDERED: CLINDAMYCIN 600MG PREMIX IVPB 600 MG/50 ML BAG IVPB ONE (14:20)
[2023-03-20] MEDS ORDERED: CLINDAMYCIN 600 MG PREMIX BAG IVPB ONE (14:20)
[2023-03-20] MEDS ORDERED: LIDOCAINE 1%/EPI 1:100000 (50 ML MULTI DOSE VIAL) NR ONE (14:30)
[2023-03-20] MEDS ORDERED: GENTAMICIN SO4 80 MG/2 ML VIAL IVPB ONE (14:35)
[2023-03-20] MEDS ORDERED: LIDOCAINE HCL/PF 2% SDV 5ML VIAL ONE (14:46)
[2023-03-20] MEDS: CLINDAMYCIN 600MG PREMIX IVPB 600 MG/50 ML BAG IVPB SCH ×2 (16:26→18:20)
[2023-03-20] MEDS: ACETAMINOPHEN 325 MG TABLET (FP) PO PRN (18:10)
[2023-03-20] MEDS ORDERED: ACETAMINOPHEN 325 MG TABLET (FP) PO PRN ×2 (20:25)
[2023-03-20] MEDS ORDERED: DOCUSATE SODIUM 100 MG CAPSULE (FP) PO PRN (20:25)
[2023-03-20] MEDS ORDERED: POLYETHYLENE GLYCOL (HEALTHYLAX) 3350 17 GM PACKET PO PRN (20:25)
[2023-03-20] MEDS ORDERED: INSULIN (NOVOLOG) ASPART 100 UNITS/ML 10ML VIAL ONE (20:45)
[2023-03-20] MEDS: LACTATED RINGERS SOLUTION 1,000 ML IV SCH (21:25)
[2023-03-20] MEDS: oxyCODONE HCL 5 MG TABLET PO PRN (22:10)
[2023-03-21] MEDS: CLINDAMYCIN 600MG PREMIX IVPB 600 MG/50 ML BAG IVPB SCH ×3 (01:50→18:18)
[2023-03-21] MEDS: LACTATED RINGERS SOLUTION 1,000 ML IV SCH ×2 (01:52→22:39)
[2023-03-21] MEDS: MUPIROCIN CA 2% TOPICAL CREAM 15 GM TUBE TP SCH ×6 (06:05→22:37)
[2023-03-21] MEDS: oxyCODONE HCL 5 MG TABLET PO PRN ×3 (06:10→22:39)
[2023-03-21] MEDS: LEVOTHYROXINE NA 25 MCG TABLET (FP) PO SCH (06:10)
[2023-03-21] MEDS: INSULIN SLIDING SCALE (NOVOLOG) 1 VIAL SQ SCH ×4 (06:28→22:49)
[2023-03-21 07:47] LABS: BASO % 0.7 % (0-2.0); EOS % 1.9 % (0-4.5); HEMATOCRIT 24.1 % (32.4-45.2); HEMOGLOBIN 7.8 GM/dL (10.7-15.3); MCH 25.4 pg (25.7-33.7); MCHC 32.5 g/dl (32.0-36.0); MEAN PLT VOLUME 7.9 fl (7.5-11.1); MONO % 8.7 % (3.8-10.2); NEUT % 58.7 % (42.8-82.8); PLATELET COUNT 549 10^3/uL (134-434); RBC 3.09 M/mm3 (3.60-5.2); RDW 14.9 % (11.6-15.6)
[2023-03-21 08:02] LABS: BLOOD UREA NITROGEN 15.4 mg/dL (7-18); CALCIUM 9.2 mg/dL (8.5-10.1)
[2023-03-21 08:06] LABS: CREATININE 0.7 mg/dL (0.55-1.3)
[2023-03-21] MEDS: AMINO ACIDS/PROTEIN HYDROLYS 30 ML LIQUID.PKT PO SCH (08:32)
[2023-03-21] MEDS ORDERED: COLLAGENASE CLOSTRIDIUM HIST. 30 GRAMS TUBE TP SCH (10:00)
[2023-03-21] MEDS: MULTIVITAMINS (DAILY MVI) TABLET (FP) PO SCH (10:55)
[2023-03-21] MEDS: ASCORBIC ACID 500 MG TABLET (FP) PO SCH (10:55)
[2023-03-21] MEDS: PANTOPRAZOLE 40 MG TABLET PO SCH (10:55)
[2023-03-21] MEDS: GABAPENTIN 300 MG CAPSULE PO SCH (10:55)
[2023-03-21] MEDS: predniSONE 5 MG TABLET (UD) PO SCH (10:56)
[2023-03-21] MEDS: FAMOTIDINE 20 MG TABLET PO SCH (10:56)
[2023-03-21] MEDS: APIXABAN 2.5 MG TABLET PO SCH ×2 (10:56→22:39)
[2023-03-21] MEDS: ACETAMINOPHEN 325 MG TABLET (FP) PO PRN (11:16)
[2023-03-21] MEDS ORDERED: INSULIN (NOVOLOG) ASPART 100 UNITS/ML 10ML VIAL ONE (18:03)
[2023-03-21] MEDS: SILVER SULFADIAZINE 1% TOP CREAM 50 GM JAR TP SCH (18:18)
[2023-03-22] MEDS: CLINDAMYCIN 600MG PREMIX IVPB 600 MG/50 ML BAG IVPB SCH ×3 (01:23→17:19)
[2023-03-22] MEDS: oxyCODONE HCL 5 MG TABLET PO PRN ×2 (03:43→18:27)
[2023-03-22] MEDS: MUPIROCIN CA 2% TOPICAL CREAM 15 GM TUBE TP SCH ×3 (06:25→21:59)
[2023-03-22] MEDS: LEVOTHYROXINE NA 25 MCG TABLET (FP) PO SCH (06:28)
[2023-03-22] MEDS: INSULIN SLIDING SCALE (NOVOLOG) 1 VIAL SQ SCH ×4 (06:28→21:54)
[2023-03-22] MEDS: LACTATED RINGERS SOLUTION 1,000 ML IV SCH ×2 (10:17→21:55)
[2023-03-22] MEDS: FAMOTIDINE 20 MG TABLET PO SCH (10:18)
[2023-03-22] MEDS: GABAPENTIN 300 MG CAPSULE PO SCH (10:18)
[2023-03-22] MEDS: APIXABAN 2.5 MG TABLET PO SCH ×2 (10:18→21:54)
[2023-03-22] MEDS: AMINO ACIDS/PROTEIN HYDROLYS 30 ML LIQUID.PKT PO SCH (10:18)
[2023-03-22] MEDS: MULTIVITAMINS (DAILY MVI) TABLET (FP) PO SCH (10:19)
[2023-03-22] MEDS: predniSONE 5 MG TABLET (UD) PO SCH (10:19)
[2023-03-22] MEDS: PANTOPRAZOLE 40 MG TABLET PO SCH (10:19)
[2023-03-22] MEDS: ASCORBIC ACID 500 MG TABLET (FP) PO SCH (10:19)
[2023-03-22] MEDS: SILVER SULFADIAZINE 1% TOP CREAM 50 GM JAR TP SCH (10:20)
[2023-03-22] MEDS ORDERED: INSULIN (NOVOLOG) ASPART 100 UNITS/ML 10ML VIAL ONE ×2 (17:03→21:10)
[2023-03-23] MEDS: CLINDAMYCIN 600MG PREMIX IVPB 600 MG/50 ML BAG IVPB SCH ×3 (01:10→17:49)
[2023-03-23] MEDS: oxyCODONE HCL 5 MG TABLET PO PRN (05:41)
[2023-03-23] MEDS: LEVOTHYROXINE NA 25 MCG TABLET (FP) PO SCH (06:29)
[2023-03-23] MEDS: MUPIROCIN CA 2% TOPICAL CREAM 15 GM TUBE TP SCH ×3 (06:29→22:35)
[2023-03-23] MEDS: INSULIN SLIDING SCALE (NOVOLOG) 1 VIAL SQ SCH ×4 (06:29→22:39)
[2023-03-23] MEDS: GABAPENTIN 300 MG CAPSULE PO SCH (10:10)
[2023-03-23] MEDS: AMINO ACIDS/PROTEIN HYDROLYS 30 ML LIQUID.PKT PO SCH (10:10)
[2023-03-23] MEDS: predniSONE 5 MG TABLET (UD) PO SCH (10:10)
[2023-03-23] MEDS: MULTIVITAMINS (DAILY MVI) TABLET (FP) PO SCH (10:10)
[2023-03-23] MEDS: ASCORBIC ACID 500 MG TABLET (FP) PO SCH (10:11)
[2023-03-23] MEDS: APIXABAN 2.5 MG TABLET PO SCH ×2 (10:11→22:36)
[2023-03-23] MEDS: PANTOPRAZOLE 40 MG TABLET PO SCH (10:11)
[2023-03-23] MEDS: LACTATED RINGERS SOLUTION 1,000 ML IV SCH (10:23)
[2023-03-23] MEDS ORDERED: INSULIN (NOVOLOG) ASPART 100 UNITS/ML 10ML VIAL ONE (11:37)
[2023-03-23] MEDS: FAMOTIDINE 20 MG TABLET PO SCH (11:45)
[2023-03-23] MEDS: SILVER SULFADIAZINE 1% TOP CREAM 50 GM JAR TP SCH (11:46)
[2023-03-23] MEDS ORDERED: FLUCONAZOLE 150 MG TABLET PO ONE (15:20)
[2023-03-23] MEDS: ACETAMINOPHEN 325 MG TABLET (FP) PO PRN (22:36)
[2023-03-24] MEDS: CLINDAMYCIN 600MG PREMIX IVPB 600 MG/50 ML BAG IVPB SCH ×3 (02:23→17:09)
[2023-03-24] MEDS: LEVOTHYROXINE NA 25 MCG TABLET (FP) PO SCH (06:51)
[2023-03-24] MEDS: MUPIROCIN CA 2% TOPICAL CREAM 15 GM TUBE TP SCH ×3 (06:51→22:37)
[2023-03-24] MEDS: INSULIN SLIDING SCALE (NOVOLOG) 1 VIAL SQ SCH ×4 (06:53→22:43)
[2023-03-24 10:01] LABS: BASO % 0.6 % (0-2.0); HEMATOCRIT 24.7 % (32.4-45.2); HEMOGLOBIN 7.9 GM/dL (10.7-15.3); LYMPH % 18.3 % (8-40); MCH 24.6 pg (25.7-33.7); MCHC 32.1 g/dl (32.0-36.0); MEAN CELL VOLUME 76.7 fl (80-96); MEAN PLT VOLUME 7.8 fl (7.5-11.1); MONO % 5.2 % (3.8-10.2); NEUT % 74.9 % (42.8-82.8); PLATELET COUNT 662 10^3/uL (134-434); RBC 3.22 M/mm3 (3.60-5.2); RDW 14.9 % (11.6-15.6); WHITE BLOOD COUNT 11.6 K/mm3 (4.0-10.0)
[2023-03-24 10:42] LABS: POTASSIUM 3.6 mmol/L (3.5-5.1)
[2023-03-24 10:44] LABS: BLOOD UREA NITROGEN 10.2 mg/dL (7-18)
[2023-03-24 10:47] LABS: CREATININE 0.7 mg/dL (0.55-1.3)
[2023-03-24] MEDS ORDERED: INSULIN (NOVOLOG) ASPART 100 UNITS/ML 10ML VIAL ONE ×3 (10:50→21:39)
[2023-03-24] MEDS: AMINO ACIDS/PROTEIN HYDROLYS 30 ML LIQUID.PKT PO SCH (10:58)
[2023-03-24] MEDS: predniSONE 5 MG TABLET (UD) PO SCH (10:59)
[2023-03-24] MEDS: ASCORBIC ACID 500 MG TABLET (FP) PO SCH (10:59)
[2023-03-24] MEDS: FAMOTIDINE 20 MG TABLET PO SCH (10:59)
[2023-03-24] MEDS: SILVER SULFADIAZINE 1% TOP CREAM 50 GM JAR TP SCH (10:59)
[2023-03-24] MEDS: PANTOPRAZOLE 40 MG TABLET PO SCH (10:59)
[2023-03-24] MEDS: APIXABAN 2.5 MG TABLET PO SCH ×2 (10:59→22:43)
[2023-03-24] MEDS: MULTIVITAMINS (DAILY MVI) TABLET (FP) PO SCH (10:59)
[2023-03-24] MEDS: GABAPENTIN 300 MG CAPSULE PO SCH (10:59)
[2023-03-24] MEDS: ACETAMINOPHEN 325 MG TABLET (FP) PO PRN (11:13)
[2023-03-24] MEDS: NAPROXEN 250 MG TABLET PO SCH ×2 (17:01→22:42)
[2023-03-25] MEDS: CLINDAMYCIN 600MG PREMIX IVPB 600 MG/50 ML BAG IVPB SCH ×3 (01:15→17:12)
[2023-03-25] MEDS: LEVOTHYROXINE NA 25 MCG TABLET (FP) PO SCH (06:35)
[2023-03-25] MEDS: MUPIROCIN CA 2% TOPICAL CREAM 15 GM TUBE TP SCH ×3 (06:35→22:39)
[2023-03-25] MEDS: INSULIN SLIDING SCALE (NOVOLOG) 1 VIAL SQ SCH ×4 (06:35→22:49)
[2023-03-25] MEDS ORDERED: INSULIN (NOVOLOG) ASPART 100 UNITS/ML 10ML VIAL ONE ×2 (09:28→17:28)
[2023-03-25] MEDS: NAPROXEN 250 MG TABLET PO SCH ×2 (10:45→22:44)
[2023-03-25] MEDS: APIXABAN 2.5 MG TABLET PO SCH ×2 (10:45→22:45)
[2023-03-25] MEDS: FAMOTIDINE 20 MG TABLET PO SCH (10:45)
[2023-03-25] MEDS: PANTOPRAZOLE 40 MG TABLET PO SCH (10:45)
[2023-03-25] MEDS: predniSONE 5 MG TABLET (UD) PO SCH (10:45)
[2023-03-25] MEDS: GABAPENTIN 300 MG CAPSULE PO SCH (10:45)
[2023-03-25] MEDS: MULTIVITAMINS (DAILY MVI) TABLET (FP) PO SCH (10:45)
[2023-03-25] MEDS: AMINO ACIDS/PROTEIN HYDROLYS 30 ML LIQUID.PKT PO SCH (10:45)
[2023-03-25] MEDS: SILVER SULFADIAZINE 1% TOP CREAM 50 GM JAR TP SCH (10:46)
[2023-03-25] MEDS: ASCORBIC ACID 500 MG TABLET (FP) PO SCH (15:14)
[2023-03-26] MEDS: CLINDAMYCIN 600MG PREMIX IVPB 600 MG/50 ML BAG IVPB SCH ×3 (02:16→17:00)
[2023-03-26] MEDS: ACETAMINOPHEN 325 MG TABLET (FP) PO PRN (04:17)
[2023-03-26] MEDS: LEVOTHYROXINE NA 25 MCG TABLET (FP) PO SCH (06:29)
[2023-03-26] MEDS: MUPIROCIN CA 2% TOPICAL CREAM 15 GM TUBE TP SCH ×2 (06:29→13:07)
[2023-03-26] MEDS: INSULIN SLIDING SCALE (NOVOLOG) 1 VIAL SQ SCH ×4 (06:29→23:03)
[2023-03-26] MEDS: predniSONE 5 MG TABLET (UD) PO SCH (09:45)
[2023-03-26] MEDS: PANTOPRAZOLE 40 MG TABLET PO SCH (09:45)
[2023-03-26] MEDS: GABAPENTIN 300 MG CAPSULE PO SCH (09:46)
[2023-03-26] MEDS: APIXABAN 2.5 MG TABLET PO SCH ×2 (09:46→22:48)
[2023-03-26] MEDS: NAPROXEN 250 MG TABLET PO SCH ×2 (09:46→22:47)
[2023-03-26] MEDS: FAMOTIDINE 20 MG TABLET PO SCH (09:46)
[2023-03-26] MEDS: AMINO ACIDS/PROTEIN HYDROLYS 30 ML LIQUID.PKT PO SCH (09:47)
[2023-03-26] MEDS: MULTIVITAMINS (DAILY MVI) TABLET (FP) PO SCH (09:47)
[2023-03-26] MEDS: SILVER SULFADIAZINE 1% TOP CREAM 50 GM JAR TP SCH (09:47)
[2023-03-26] MEDS: ASCORBIC ACID 500 MG TABLET (FP) PO SCH (09:47)
[2023-03-26] MEDS ORDERED: INSULIN (NOVOLOG) ASPART 100 UNITS/ML 10ML VIAL ONE (16:46)
[2023-03-27] MEDS: MUPIROCIN CA 2% TOPICAL CREAM 15 GM TUBE TP SCH ×4 (01:26→21:43)
[2023-03-27] MEDS: CLINDAMYCIN 600MG PREMIX IVPB 600 MG/50 ML BAG IVPB SCH ×3 (01:27→17:33)
[2023-03-27] MEDS: ACETAMINOPHEN 325 MG TABLET (FP) PO PRN (06:43)
[2023-03-27] MEDS: INSULIN SLIDING SCALE (NOVOLOG) 1 VIAL SQ SCH ×4 (06:46→21:39)
[2023-03-27] MEDS: LEVOTHYROXINE NA 25 MCG TABLET (FP) PO SCH (06:50)
[2023-03-27 08:02] LABS: BASO % 0.7 % (0-2.0); EOS % 1.7 % (0-4.5); HEMATOCRIT 25.3 % (32.4-45.2); HEMOGLOBIN 7.9 GM/dL (10.7-15.3); LYMPH % 27.1 % (8-40); MCH 24.4 pg (25.7-33.7); MCHC 31.3 g/dl (32.0-36.0); MEAN CELL VOLUME 78.1 fl (80-96); MONO % 6.3 % (3.8-10.2); NEUT % 64.2 % (42.8-82.8); PLATELET COUNT 695 10^3/uL (134-434); RBC 3.24 M/mm3 (3.60-5.2); RDW 15.3 % (11.6-15.6); WHITE BLOOD COUNT 9.7 K/mm3 (4.0-10.0)
[2023-03-27 08:20] LABS: POTASSIUM 3.8 mmol/L (3.5-5.1)
[2023-03-27 08:21] LABS: CALCIUM 8.9 mg/dL (8.5-10.1)
[2023-03-27 08:22] LABS: BLOOD UREA NITROGEN 17.3 mg/dL (7-18)
[2023-03-27 08:26] LABS: CREATININE 0.7 mg/dL (0.55-1.3)
[2023-03-27] MEDS: GABAPENTIN 300 MG CAPSULE PO SCH (09:44)
[2023-03-27] MEDS: ASCORBIC ACID 500 MG TABLET (FP) PO SCH (09:44)
[2023-03-27] MEDS: MULTIVITAMINS (DAILY MVI) TABLET (FP) PO SCH (09:44)
[2023-03-27] MEDS: APIXABAN 2.5 MG TABLET PO SCH ×2 (09:44→21:38)
[2023-03-27] MEDS: NAPROXEN 250 MG TABLET PO SCH ×2 (09:44→21:38)
[2023-03-27] MEDS: FAMOTIDINE 20 MG TABLET PO SCH (09:44)
[2023-03-27] MEDS: AMINO ACIDS/PROTEIN HYDROLYS 30 ML LIQUID.PKT PO SCH (09:45)
[2023-03-27] MEDS: PANTOPRAZOLE 40 MG TABLET PO SCH (09:45)
[2023-03-27] MEDS: predniSONE 5 MG TABLET (UD) PO SCH (09:45)
[2023-03-27] MEDS ORDERED: INSULIN (NOVOLOG) ASPART 100 UNITS/ML 10ML VIAL ONE ×2 (12:03→17:32)
[2023-03-27] MEDS: SILVER SULFADIAZINE 1% TOP CREAM 50 GM JAR TP SCH (12:08)
[2023-03-28] MEDS: MUPIROCIN CA 2% TOPICAL CREAM 15 GM TUBE TP SCH ×3 (06:21→22:33)
[2023-03-28] MEDS: INSULIN SLIDING SCALE (NOVOLOG) 1 VIAL SQ SCH ×4 (06:24→22:33)
[2023-03-28] MEDS: LEVOTHYROXINE NA 25 MCG TABLET (FP) PO SCH (06:24)
[2023-03-28] MEDS: ACETAMINOPHEN 325 MG TABLET (FP) PO PRN ×2 (06:25→22:32)
[2023-03-28] MEDS: AMINO ACIDS/PROTEIN HYDROLYS 30 ML LIQUID.PKT PO SCH (08:30)
[2023-03-28] MEDS: predniSONE 5 MG TABLET (UD) PO SCH (09:57)
[2023-03-28] MEDS: APIXABAN 2.5 MG TABLET PO SCH ×2 (09:57→22:32)
[2023-03-28] MEDS: NAPROXEN 250 MG TABLET PO SCH ×2 (09:57→22:32)
[2023-03-28] MEDS: GABAPENTIN 300 MG CAPSULE PO SCH (09:58)
[2023-03-28] MEDS: FAMOTIDINE 20 MG TABLET PO SCH (09:59)
[2023-03-28] MEDS: PANTOPRAZOLE 40 MG TABLET PO SCH (09:59)
[2023-03-28] MEDS: MULTIVITAMINS (DAILY MVI) TABLET (FP) PO SCH (09:59)
[2023-03-28] MEDS: ASCORBIC ACID 500 MG TABLET (FP) PO SCH (10:01)
[2023-03-28] MEDS: SILVER SULFADIAZINE 1% TOP CREAM 50 GM JAR TP SCH (14:32)
[2023-03-28] MEDS ORDERED: INSULIN (NOVOLOG) ASPART 100 UNITS/ML 10ML VIAL ONE ×2 (16:52→18:38)
[2023-03-29] MEDS: LEVOTHYROXINE NA 25 MCG TABLET (FP) PO SCH (06:31)
[2023-03-29] MEDS: ACETAMINOPHEN 325 MG TABLET (FP) PO PRN (06:31)
[2023-03-29] MEDS: INSULIN SLIDING SCALE (NOVOLOG) 1 VIAL SQ SCH ×4 (06:32→21:56)
[2023-03-29] MEDS: MUPIROCIN CA 2% TOPICAL CREAM 15 GM TUBE TP SCH ×3 (06:32→21:51)
[2023-03-29] MEDS: AMINO ACIDS/PROTEIN HYDROLYS 30 ML LIQUID.PKT PO SCH (08:34)
[2023-03-29 08:48] LABS: BASO % 1.3 % (0-2.0); EOS % 2.3 % (0-4.5); HEMATOCRIT 24.2 % (32.4-45.2); HEMOGLOBIN 7.7 GM/dL (10.7-15.3); LYMPH % 29.3 % (8-40); MEAN CELL VOLUME 78.1 fl (80-96); MEAN PLT VOLUME 7.8 fl (7.5-11.1); NEUT % 62.1 % (42.8-82.8); PLATELET COUNT 646 10^3/uL (134-434); RDW 15.7 % (11.6-15.6); WHITE BLOOD COUNT 8.6 K/mm3 (4.0-10.0)
[2023-03-29 09:04] LABS: POTASSIUM 4.2 mmol/L (3.5-5.1)
[2023-03-29 09:07] LABS: BLOOD UREA NITROGEN 18.9 mg/dL (7-18); CALCIUM 8.9 mg/dL (8.5-10.1)
[2023-03-29 09:08] LABS: ALBUMIN 2.4 g/dl (3.4-5.0)
[2023-03-29 09:10] LABS: CREATININE 0.7 mg/dL (0.55-1.3)
[2023-03-29 09:12] LABS: BILIRUBIN,TOTAL 0.7 mg/dL (0.2-1); TOT PROT 6.3 g/dl (6.4-8.2)
[2023-03-29] MEDS: GABAPENTIN 300 MG CAPSULE PO SCH (09:27)
[2023-03-29] MEDS: PANTOPRAZOLE 40 MG TABLET PO SCH (09:27)
[2023-03-29] MEDS: predniSONE 5 MG TABLET (UD) PO SCH (09:27)
[2023-03-29] MEDS: ASCORBIC ACID 500 MG TABLET (FP) PO SCH (09:27)
[2023-03-29] MEDS: MULTIVITAMINS (DAILY MVI) TABLET (FP) PO SCH (09:27)
[2023-03-29] MEDS: APIXABAN 2.5 MG TABLET PO SCH ×2 (09:27→21:48)
[2023-03-29] MEDS: FAMOTIDINE 20 MG TABLET PO SCH (09:27)
[2023-03-29] MEDS: NAPROXEN 250 MG TABLET PO SCH ×2 (09:28→21:47)
[2023-03-29] MEDS: SILVER SULFADIAZINE 1% TOP CREAM 50 GM JAR TP SCH (12:27)
[2023-03-29] MEDS: SODIUM CHLORIDE 1,000 ML IV SCH ×2 (14:54→19:30)
[2023-03-29] MEDS ORDERED: LIDOCAINE HCL/PF 2% SDV 5ML VIAL ONE (15:52)
[2023-03-29] MEDS ORDERED: MIDAZOLAM HCL 2 MG/2 ML SINGLE DOSE VIAL ONE (15:53)
[2023-03-29] MEDS ORDERED: PROPOFOL 20 ML ONE ×2 (15:53→17:24)
[2023-03-29] MEDS ORDERED: DOXYCYCLINE INJECTION 100 MG in DEXTROSE 5%-WATER 100 ML IVPB ONE ×2 (17:00→21:15)
[2023-03-29] MEDS ORDERED: DOXYCYCLINE HYCLATE 100 MG VIAL IVPB ONE (17:10)
[2023-03-29] MEDS ORDERED: GENTAMICIN SO4 80 MG/2 ML VIAL ONE (17:11)
[2023-03-29] MEDS ORDERED: GENTAMICIN SO4 80 MG/2 ML VIAL IVPB ONE (17:55)
[2023-03-29] MEDS ORDERED: ONDANSETRON 4 MG/2 ML VIAL IVPUSH PRN (18:17)
[2023-03-29] MEDS ORDERED: PROMETHAZINE HCL 25 MG/1 ML VIAL IVPB PRN (18:17)
[2023-03-29] MEDS ORDERED: KETOROLAC TROMETHAMINE 30 MG/1 ML VIAL IVPUSH ONE (18:18)
[2023-03-29] MEDS ORDERED: ACETAMINOPHEN 1000 MG/100 ML BAG IVPB ONE (18:18)
[2023-03-29] MEDS ORDERED: ACETAMINOPHEN INJECTION 100 ML IVPB ONE (18:45)
[2023-03-29] MEDS: LACTATED RINGERS SOLUTION 1,000 ML IV SCH (20:15)
[2023-03-30] MEDS: ACETAMINOPHEN 325 MG TABLET (FP) PO PRN ×2 (03:18→16:15)
[2023-03-30] MEDS: MUPIROCIN CA 2% TOPICAL CREAM 15 GM TUBE TP SCH ×3 (06:38→21:44)
[2023-03-30] MEDS: INSULIN SLIDING SCALE (NOVOLOG) 1 VIAL SQ SCH ×4 (07:04→22:37)
[2023-03-30] MEDS: LEVOTHYROXINE NA 25 MCG TABLET (FP) PO SCH (07:04)
[2023-03-30] MEDS: AMINO ACIDS/PROTEIN HYDROLYS 30 ML LIQUID.PKT PO SCH (11:02)
[2023-03-30] MEDS: GABAPENTIN 300 MG CAPSULE PO SCH (11:02)
[2023-03-30] MEDS: NAPROXEN 250 MG TABLET PO SCH ×2 (11:02→21:40)
[2023-03-30] MEDS: ASCORBIC ACID 500 MG TABLET (FP) PO SCH (11:04)
[2023-03-30] MEDS: PANTOPRAZOLE 40 MG TABLET PO SCH (11:04)
[2023-03-30] MEDS: MULTIVITAMINS (DAILY MVI) TABLET (FP) PO SCH (11:04)
[2023-03-30] MEDS: APIXABAN 2.5 MG TABLET PO SCH ×2 (11:05→21:39)
[2023-03-30] MEDS: predniSONE 5 MG TABLET (UD) PO SCH (11:05)
[2023-03-30] MEDS: SILVER SULFADIAZINE 1% TOP CREAM 50 GM JAR TP SCH (11:09)
[2023-03-30] MEDS: FAMOTIDINE 20 MG TABLET PO SCH (11:11)
[2023-03-30] MEDS ORDERED: INSULIN (NOVOLOG) ASPART 100 UNITS/ML 10ML VIAL ONE (11:57)
[2023-03-30] MEDS: DOXYCYCLINE HYCLATE 100 MG CAPSULE PO SCH (17:56)
[2023-03-30] MEDS: LACTATED RINGERS SOLUTION 1,000 ML IV SCH (21:42)
[2023-03-31] MEDS: MUPIROCIN CA 2% TOPICAL CREAM 15 GM TUBE TP SCH ×3 (06:30→21:22)
[2023-03-31] MEDS: LEVOTHYROXINE NA 25 MCG TABLET (FP) PO SCH (06:33)
[2023-03-31] MEDS: INSULIN SLIDING SCALE (NOVOLOG) 1 VIAL SQ SCH ×4 (06:33→21:36)
[2023-03-31] MEDS: MULTIVITAMINS (DAILY MVI) TABLET (FP) PO SCH (09:36)
[2023-03-31] MEDS: ASCORBIC ACID 500 MG TABLET (FP) PO SCH (09:36)
[2023-03-31] MEDS: DOXYCYCLINE HYCLATE 100 MG CAPSULE PO SCH ×2 (09:36→17:23)
[2023-03-31] MEDS: NAPROXEN 250 MG TABLET PO SCH ×2 (09:36→21:27)
[2023-03-31] MEDS: FAMOTIDINE 20 MG TABLET PO SCH (09:36)
[2023-03-31] MEDS: PANTOPRAZOLE 40 MG TABLET PO SCH (09:36)
[2023-03-31] MEDS: predniSONE 5 MG TABLET (UD) PO SCH (09:36)
[2023-03-31] MEDS: GABAPENTIN 300 MG CAPSULE PO SCH (09:36)
[2023-03-31] MEDS: AMINO ACIDS/PROTEIN HYDROLYS 30 ML LIQUID.PKT PO SCH (09:36)
[2023-03-31] MEDS: APIXABAN 2.5 MG TABLET PO SCH ×2 (09:36→21:28)
[2023-03-31] MEDS: SILVER SULFADIAZINE 1% TOP CREAM 50 GM JAR TP SCH (09:37)
[2023-03-31] MEDS ORDERED: INSULIN (NOVOLOG) ASPART 100 UNITS/ML 10ML VIAL ONE (11:41)
[2023-03-31] MEDS: ACETAMINOPHEN 325 MG TABLET (FP) PO PRN (11:43)
[2023-03-31] MEDS ORDERED: traMADol HCL 50 MG TABLET PO PRN (13:27)
[2023-03-31] MEDS ORDERED: ONDANSETRON 4 MG/2 ML VIAL IVPUSH PRN (13:28)
[2023-03-31] MEDS: SODIUM CHLORIDE 1,000 ML IV SCH (13:58)
[2023-03-31] MEDS: LACTATED RINGERS SOLUTION 1,000 ML IV SCH ×2 (17:20→21:22)
[2023-03-31] MEDS: MAG HYDROX/AL HYDROX/SIMETH -MYLANTA- ORAL SUSPENSION PO SCH (17:21)
[2023-04-01] MEDS: MAG HYDROX/AL HYDROX/SIMETH -MYLANTA- ORAL SUSPENSION PO SCH ×2 (00:35→00:38)
[2023-04-01 06:34] LABS: EPI CELLS 11 /uL (0-25.1); HYALINE CASTS 1 /uL (0-3.1); PH,URINE 5.5 (5.0-8.0); URINE APPEARANCE CLEAR; URINE BACTERIA 90 /uL (0-1359); URINE BILIRUBIN NEGATIVE (NEGATIVE); URINE COLOR YELLOW; URINE GLUCOSE (UA) NEGATIVE (NEGATIVE); URINE KETONE NEGATIVE (NEGATIVE); URINE LEUK ESTERASE 1+ (NEGATIVE); URINE NITRITE NEGATIVE (NEGATIVE); URINE PROTEIN NEGATIVE (NEGATIVE); URINE RBC 36 /uL (0-23.9); URINE UROBILINOGEN 0.2 mg/dL (0.2-1.0); URINE WBC 61 /uL (0-25.8)
[2023-04-01] MEDS: MUPIROCIN CA 2% TOPICAL CREAM 15 GM TUBE TP SCH ×3 (06:49→22:56)
[2023-04-01] MEDS: LEVOTHYROXINE NA 25 MCG TABLET (FP) PO SCH (06:52)
[2023-04-01] MEDS: MAG HYDROX/AL HYDROX/SIMETH 30 ML UNIT-DOSE CUP PO SCH ×3 (06:52→17:36)
[2023-04-01] MEDS: INSULIN SLIDING SCALE (NOVOLOG) 1 VIAL SQ SCH ×4 (07:25→22:51)
[2023-04-01 07:41] VITALS: RESP 20
[2023-04-01 07:52] LABS: BASO % 1.2 % (0-2.0); EOS % 2.4 % (0-4.5); HEMATOCRIT 23.7 % (32.4-45.2); HEMOGLOBIN 7.5 GM/dL (10.7-15.3); LYMPH % 31.5 % (8-40); MCH 24.3 pg (25.7-33.7); MCHC 31.5 g/dl (32.0-36.0); MEAN CELL VOLUME 77.3 fl (80-96); MEAN PLT VOLUME 7.7 fl (7.5-11.1); MONO % 7.3 % (3.8-10.2); NEUT % 57.6 % (42.8-82.8); PLATELET COUNT 605 10^3/uL (134-434); RBC 3.06 M/mm3 (3.60-5.2); RDW 15.2 % (11.6-15.6); WHITE BLOOD COUNT 7.9 K/mm3 (4.0-10.0)
[2023-04-01 08:09] LABS: POTASSIUM 4.3 mmol/L (3.5-5.1)
[2023-04-01 08:21] LABS: ALBUMIN 2.5 g/dl (3.4-5.0); CALCIUM 9.3 mg/dL (8.5-10.1)
[2023-04-01 08:22] LABS: BLOOD UREA NITROGEN 26.5 mg/dL (7-18)
[2023-04-01 08:25] LABS: CREATININE 0.8 mg/dL (0.55-1.3)
[2023-04-01 08:26] LABS: TOT PROT 6.5 g/dl (6.4-8.2)
[2023-04-01 08:27] LABS: BILIRUBIN,TOTAL 0.6 mg/dL (0.2-1)
[2023-04-01] MEDS: AMINO ACIDS/PROTEIN HYDROLYS 30 ML LIQUID.PKT PO SCH (08:34)
[2023-04-01] MEDS: predniSONE 5 MG TABLET (UD) PO SCH (09:26)
[2023-04-01] MEDS: GABAPENTIN 300 MG CAPSULE PO SCH (09:26)
[2023-04-01] MEDS: NAPROXEN 250 MG TABLET PO SCH ×2 (09:26→22:49)
[2023-04-01] MEDS: MULTIVITAMINS (DAILY MVI) TABLET (FP) PO SCH (09:27)
[2023-04-01] MEDS: DOXYCYCLINE HYCLATE 100 MG CAPSULE PO SCH ×2 (09:27→17:36)
[2023-04-01] MEDS: APIXABAN 2.5 MG TABLET PO SCH ×2 (09:27→22:49)
[2023-04-01] MEDS: SILVER SULFADIAZINE 1% TOP CREAM 50 GM JAR TP SCH (09:27)
[2023-04-01] MEDS: ASCORBIC ACID 500 MG TABLET (FP) PO SCH (09:27)
[2023-04-01] MEDS: PANTOPRAZOLE 40 MG TABLET PO SCH (09:27)
[2023-04-02] MEDS: MAG HYDROX/AL HYDROX/SIMETH 30 ML UNIT-DOSE CUP PO SCH ×3 (04:24→13:27)
[2023-04-02] MEDS: LEVOTHYROXINE NA 25 MCG TABLET (FP) PO SCH (06:59)
[2023-04-02] MEDS: INSULIN SLIDING SCALE (NOVOLOG) 1 VIAL SQ SCH ×2 (06:59→13:25)
[2023-04-02] MEDS: ACETAMINOPHEN 325 MG TABLET (FP) PO PRN (07:00)
[2023-04-02] MEDS: MUPIROCIN CA 2% TOPICAL CREAM 15 GM TUBE TP SCH ×2 (07:01→13:29)
[2023-04-02] MEDS: NAPROXEN 250 MG TABLET PO SCH (10:12)
[2023-04-02] MEDS: PANTOPRAZOLE 40 MG TABLET PO SCH (10:12)
[2023-04-02] MEDS: APIXABAN 2.5 MG TABLET PO SCH (10:12)
[2023-04-02] MEDS: AMINO ACIDS/PROTEIN HYDROLYS 30 ML LIQUID.PKT PO SCH (10:12)
[2023-04-02] MEDS: predniSONE 5 MG TABLET (UD) PO SCH (10:12)
[2023-04-02] MEDS: ASCORBIC ACID 500 MG TABLET (FP) PO SCH (10:12)
[2023-04-02] MEDS: GABAPENTIN 300 MG CAPSULE PO SCH (10:12)
[2023-04-02] MEDS: MULTIVITAMINS (DAILY MVI) TABLET (FP) PO SCH (10:14)
[2023-04-02] MEDS: SILVER SULFADIAZINE 1% TOP CREAM 50 GM JAR TP SCH (10:14)
[2023-04-02] MEDS: DOXYCYCLINE HYCLATE 100 MG CAPSULE PO SCH (10:14)
[2023-04-02 13:51] VITALS: BP 144/68; PULSE 85; TEMP 98.1
== END 2023-04-02 15:22 | DRG 902 ==
LOC: JER 17:07 → JERBED 21:25 → J7W 22:10
PROVIDERS: ADMIT Internal Medicine; ATTEND Internal Medicine
PROC: 0JBQ0ZZ Excision of Right Foot Subcutaneous Tissue and Fascia, Open Approach (ICD-10-PCS; principal; 2023-03-20 13:00)
PROC: 0JBQ0ZZ Excision of Right Foot Subcutaneous Tissue and Fascia, Open Approach (ICD-10-PCS; 2023-03-21)
PROC: 0J9Q0ZZ Drainage of Right Foot Subcutaneous Tissue and Fascia, Open Approach (ICD-10-PCS; 2023-03-21)
PROC: 0LBV0ZZ Excision of Right Foot Tendon, Open Approach (ICD-10-PCS; 2023-03-29)
DX: T14.8XXA Other injury of unspecified body region, initial encounter (principal); L02.415 Cutaneous abscess of right lower limb; L03.90 Cellulitis, unspecified; L08.9 Local infection of the skin and subcutaneous tissue, unspecified; I73.9 Peripheral vascular disease, unspecified; E11.622 Type 2 diabetes mellitus with other skin ulcer; E03.9 Hypothyroidism, unspecified; E78.5 Hyperlipidemia, unspecified; J44.9 Chronic obstructive pulmonary disease, unspecified; E11.51 Type 2 diabetes mellitus with diabetic peripheral angiopathy without gangrene; M06.9 Rheumatoid arthritis, unspecified; L89.152 Pressure ulcer of sacral region, stage 2; A49.02 Methicillin resistant Staphylococcus aureus infection, unspecified site; S91.001A Unspecified open wound, right ankle, initial encounter; X58.XXXA Exposure to other specified factors, initial encounter; Y93.9 Activity, unspecified; Y92.89 Other specified places as the place of occurrence of the external cause; Y99.9 Unspecified external cause status
CPT/HCPCS: 36415; 73610-TC-RT-FY; 73630-TC-RT-FY; 73721-RT-TC; 80048; 80053; 81003; 82607; 82728; 82746; 82803; 82962; 83540; 83550; 83605; 83735; 84100; 84443; 85025; 85610; 85651; 85730; 86140; 87040; 87070; 87186; 87205; 88304-TC; 88305-TC; 93005; 93010; 94760; 97116-GP; 97161-GP; 99285-25; C9803-CS; J0878; U0003; U0005

== ENCOUNTER 2023-07-09 19:31 | Inpatient (IN) | payer OTHER ==
[2023-07-09 19:37] VITALS: BMI 25.0
[2023-07-09] MEDS ORDERED: CLINDAMYCIN 600MG PREMIX IVPB 600 MG/50 ML BAG IVPB ONE ×2 (22:01→22:10)
[2023-07-09 23:18] LABS: BASO % 0.7 % (0-2.0); EOS % 1.3 % (0-4.5); HEMATOCRIT 28.4 % (32.4-45.2); HEMOGLOBIN 9.3 GM/dL (10.7-15.3); LYMPH % 22.4 % (8-40); MCH 26.6 pg (25.7-33.7); MCHC 32.7 g/dl (32.0-36.0); MEAN CELL VOLUME 81.4 fl (80-96); MEAN PLT VOLUME 7.2 fl (7.5-11.1); MONO % 6.3 % (3.8-10.2); NEUT % 69.3 % (42.8-82.8); PLATELET COUNT 660 10^3/uL (134-434); RBC 3.49 M/mm3 (3.60-5.2); RDW 18.4 % (11.6-15.6); WHITE BLOOD COUNT 11.8 K/mm3 (4.0-10.0)
[2023-07-09 23:26] LABS: INR 1.18 (0.83-1.09); PROTHROMBIN TIME (PATIENT) 13.7 SEC (9.7-13.0)
[2023-07-09 23:29] LABS: ACTIVATED PTT 27.7 SECONDS (25.2-36.5)
[2023-07-10] LABS: POTASSIUM 5.4 mmol/L (3.5-5.1)
[2023-07-10 00:02] LABS: ALBUMIN 2.4 g/dl (3.4-5.0); BLOOD UREA NITROGEN 29.4 mg/dL (7-18); CALCIUM 9.9 mg/dL (8.5-10.1)
[2023-07-10 00:05] LABS: ERYTHROCYTE SEDIMENTATION RATE 107 mm/hr (0-30)
[2023-07-10 00:07] LABS: BILIRUBIN,TOTAL 0.2 mg/dL (0.2-1); TOT PROT 7.1 g/dl (6.4-8.2)
[2023-07-10 01:21] LABS: EPI CELLS 35 /uL (0-25.1); HYALINE CASTS 4 /uL (0-3.1); URINE APPEARANCE CLEAR; URINE BACTERIA 20 /uL (0-1359); URINE BILIRUBIN NEGATIVE (NEGATIVE); URINE COLOR YELLOW; URINE GLUCOSE (UA) 1+ (NEGATIVE); URINE KETONE NEGATIVE (NEGATIVE); URINE LEUK ESTERASE 1+ (NEGATIVE); URINE NITRITE NEGATIVE (NEGATIVE); URINE PROTEIN TRACE (NEGATIVE); URINE RBC 25 /uL (0-23.9); URINE UROBILINOGEN 0.2 mg/dL (0.2-1.0); URINE WBC 75 /uL (0-25.8)
[2023-07-10 07:38] LABS: PHOSPHOROUS 3.4 mg/dL (2.5-4.9)
[2023-07-10] MEDS: INSULIN SLIDING SCALE (NOVOLOG) 1 VIAL SQ SCH ×5 (08:25→22:52)
[2023-07-10] MEDS ORDERED: ACETAMINOPHEN INJECTION 100 ML IVPB ONE (08:26)
[2023-07-10] MEDS: ACETAMINOPHEN 1000 MG/100 ML BAG IVPB PRN ×2 (08:41→18:55)
[2023-07-10] MEDS ORDERED: DOCUSATE SODIUM 100 MG CAPSULE (FP) PO PRN (09:24)
[2023-07-10] MEDS ORDERED: ACETAMINOPHEN 325 MG TABLET (FP) PO PRN (09:24)
[2023-07-10] MEDS ORDERED: PANTOPRAZOLE 40 MG TABLET PO ONE (11:04)
[2023-07-10] MEDS ORDERED: ASCORBIC ACID 500 MG TABLET (FP) ONE (11:05)
[2023-07-10] MEDS ORDERED: LEVOTHYROXINE NA 25 MCG TABLET (FP) ONE (11:05)
[2023-07-10] MEDS ORDERED: APIXABAN 2.5 MG TABLET ONE (11:05)
[2023-07-10] MEDS: predniSONE 5 MG TABLET (UD) PO SCH (11:11)
[2023-07-10] MEDS: APIXABAN 2.5 MG TABLET PO SCH ×2 (11:11→22:52)
[2023-07-10] MEDS: ASCORBIC ACID 500 MG TABLET (FP) PO SCH (11:12)
[2023-07-10] MEDS: LEVOTHYROXINE NA 25 MCG TABLET (FP) PO SCH (11:12)
[2023-07-10] MEDS: PANTOPRAZOLE 40 MG TABLET PO SCH (11:12)
[2023-07-10] MEDS ORDERED: MAG HYDROX/AL HYDROX/SIMETH 30 ML UNIT-DOSE CUP PO PRN (12:00)
[2023-07-10] MEDS: CLOTRIMAZOLE 1% CREAM TP SCH ×2 (13:08→22:52)
[2023-07-10] MEDS ORDERED: FLUCONAZOLE 100 MG TABLET (UD) ONE (13:41)
[2023-07-10] MEDS: FLUCONAZOLE 100 MG TABLET (UD) PO SCH (13:49)
[2023-07-10] MEDS: AMPICILLIN NA/SULBACTAM NA 1.5 GM in SODIUM CHLORIDE 100 ML IVPB SCH (16:55)
[2023-07-10] MEDS ORDERED: CLOTRIMAZOLE 1% VAGINAL CREAM WITH APPLICATOR 45 GM TUBE VG SCH (22:00)
[2023-07-10] MEDS: DOXYCYCLINE INJECTION 100 MG in DEXTROSE 5%-WATER 100 ML IVPB SCH (22:53)
[2023-07-11] MEDS: AMPICILLIN NA/SULBACTAM NA 1.5 GM in SODIUM CHLORIDE 100 ML IVPB SCH ×3 (02:41→17:17)
[2023-07-11] MEDS: LEVOTHYROXINE NA 25 MCG TABLET (FP) PO SCH (07:03)
[2023-07-11] MEDS: INSULIN SLIDING SCALE (NOVOLOG) 1 VIAL SQ SCH ×4 (07:04→22:44)
[2023-07-11 08:30] LABS: BASO % 0.7 % (0-2.0); HEMATOCRIT 28.9 % (32.4-45.2); HEMOGLOBIN 9.1 GM/dL (10.7-15.3); LYMPH % 18.7 % (8-40); MCH 26.3 pg (25.7-33.7); MCHC 31.6 g/dl (32.0-36.0); MEAN CELL VOLUME 83.3 fl (80-96); MEAN PLT VOLUME 7.3 fl (7.5-11.1); MONO % 6.7 % (3.8-10.2); NEUT % 71.9 % (42.8-82.8); PLATELET COUNT 763 10^3/uL (134-434); RBC 3.47 M/mm3 (3.60-5.2); RDW 17.8 % (11.6-15.6); WHITE BLOOD COUNT 11.7 K/mm3 (4.0-10.0)
[2023-07-11 08:57] LABS: POTASSIUM 4.7 mmol/L (3.5-5.1)
[2023-07-11 09:03] LABS: CALCIUM 9.4 mg/dL (8.5-10.1)
[2023-07-11 09:04] LABS: ALBUMIN 2.4 g/dl (3.4-5.0)
[2023-07-11 09:06] LABS: CREATININE 0.7 mg/dL (0.55-1.3)
[2023-07-11] MEDS: DOXYCYCLINE INJECTION 100 MG in DEXTROSE 5%-WATER 100 ML IVPB SCH ×2 (09:07→22:39)
[2023-07-11 09:08] LABS: BILIRUBIN,TOTAL 0.2 mg/dL (0.2-1); TOT PROT 6.8 g/dl (6.4-8.2)
[2023-07-11] MEDS: PANTOPRAZOLE 40 MG TABLET PO SCH (09:08)
[2023-07-11] MEDS: predniSONE 5 MG TABLET (UD) PO SCH (09:08)
[2023-07-11] MEDS: FLUCONAZOLE 100 MG TABLET (UD) PO SCH (09:08)
[2023-07-11] MEDS: ASCORBIC ACID 500 MG TABLET (FP) PO SCH (09:08)
[2023-07-11] MEDS: CLOTRIMAZOLE 1% CREAM TP SCH ×2 (09:09→22:40)
[2023-07-11] MEDS: APIXABAN 2.5 MG TABLET PO SCH ×2 (09:09→22:39)
[2023-07-11] MEDS: ACETAMINOPHEN 325 MG TABLET (FP) PO PRN ×3 (09:11→22:45)
[2023-07-11] MEDS: ZINC SULFATE 220 MG CAPSULE (FP) PO SCH (10:25)
[2023-07-11] MEDS: diphenhydrAMINE HCL 25 MG CAPSULE (FP) PO PRN (14:56)
[2023-07-11] MEDS: AMINO ACIDS/PROTEIN HYDROLYS 30 ML LIQUID.PKT PO SCH (17:17)
[2023-07-11] MEDS ORDERED: INSULIN (NOVOLOG) ASPART 100 UNITS/ML 10ML VIAL ONE (21:29)
[2023-07-11] MEDS: MELATONIN 1 MG TABLET PO PRN (22:39)
[2023-07-12] MEDS: AMPICILLIN NA/SULBACTAM NA 1.5 GM in SODIUM CHLORIDE 100 ML IVPB SCH ×3 (01:00→17:38)
[2023-07-12] MEDS: INSULIN SLIDING SCALE (NOVOLOG) 1 VIAL SQ SCH ×4 (06:03→22:59)
[2023-07-12] MEDS: LEVOTHYROXINE NA 25 MCG TABLET (FP) PO SCH (06:24)
[2023-07-12] MEDS: AMINO ACIDS/PROTEIN HYDROLYS 30 ML LIQUID.PKT PO SCH ×2 (08:40→17:39)
[2023-07-12 08:55] LABS: HEMATOCRIT 32.3 % (32.4-45.2); HEMOGLOBIN 9.8 GM/dL (10.7-15.3); LYMPH % 16.6 % (8-40); MCH 25.8 pg (25.7-33.7); MCHC 30.3 g/dl (32.0-36.0); MEAN PLT VOLUME 7.2 fl (7.5-11.1); MONO % 7.5 % (3.8-10.2); NEUT % 73.6 % (42.8-82.8); PLATELET COUNT 517 10^3/uL (134-434); RDW 18.7 % (11.6-15.6); WHITE BLOOD COUNT 10.8 K/mm3 (4.0-10.0)
[2023-07-12 08:56] LABS: BASO % 0.7 % (0-2.0); EOS % 1.6 % (0-4.5)
[2023-07-12 09:26] LABS: POTASSIUM 4.2 mmol/L (3.5-5.1)
[2023-07-12 09:29] LABS: CALCIUM 9.2 mg/dL (8.5-10.1)
[2023-07-12 09:30] LABS: BLOOD UREA NITROGEN 23.7 mg/dL (7-18)
[2023-07-12 09:33] LABS: CREATININE 0.8 mg/dL (0.55-1.3)
[2023-07-12] MEDS: PANTOPRAZOLE 40 MG TABLET PO SCH (09:43)
[2023-07-12] MEDS: ASCORBIC ACID 500 MG TABLET (FP) PO SCH (09:43)
[2023-07-12] MEDS: predniSONE 5 MG TABLET (UD) PO SCH (09:43)
[2023-07-12] MEDS: APIXABAN 2.5 MG TABLET PO SCH ×2 (09:43→22:55)
[2023-07-12] MEDS: ZINC SULFATE 220 MG CAPSULE (FP) PO SCH (09:43)
[2023-07-12] MEDS: DOXYCYCLINE INJECTION 100 MG in DEXTROSE 5%-WATER 100 ML IVPB SCH (09:44)
[2023-07-12] MEDS: CLOTRIMAZOLE 1% CREAM TP SCH ×2 (09:49→22:56)
[2023-07-12] MEDS ORDERED: INSULIN (NOVOLOG) ASPART 100 UNITS/ML 10ML VIAL ONE (11:40)
[2023-07-12] MEDS: diphenhydrAMINE HCL 25 MG CAPSULE (FP) PO PRN (12:04)
[2023-07-12] MEDS: NYSTATIN POWDER 100,000 UNITS/GM - 15 GM TOPICAL POWDER TP SCH (15:20)
[2023-07-12] MEDS: COLLAGENASE CLOSTRIDIUM HIST. 30 GRAMS TUBE TP SCH (18:00)
[2023-07-12] MEDS: MELATONIN 1 MG TABLET PO PRN (22:54)
[2023-07-12] MEDS: ACETAMINOPHEN 325 MG TABLET (FP) PO PRN (22:55)
[2023-07-13] MEDS: AMPICILLIN NA/SULBACTAM NA 1.5 GM in SODIUM CHLORIDE 100 ML IVPB SCH ×3 (01:49→17:01)
[2023-07-13] MEDS: INSULIN SLIDING SCALE (NOVOLOG) 1 VIAL SQ SCH ×4 (06:00→22:26)
[2023-07-13] MEDS: LEVOTHYROXINE NA 25 MCG TABLET (FP) PO SCH (06:04)
[2023-07-13] MEDS: AMINO ACIDS/PROTEIN HYDROLYS 30 ML LIQUID.PKT PO SCH ×2 (09:50→16:29)
[2023-07-13] MEDS: diphenhydrAMINE HCL 25 MG CAPSULE (FP) PO PRN ×2 (09:50→22:01)
[2023-07-13] MEDS: PANTOPRAZOLE 40 MG TABLET PO SCH (09:51)
[2023-07-13] MEDS: ZINC SULFATE 220 MG CAPSULE (FP) PO SCH (09:51)
[2023-07-13] MEDS: CLOTRIMAZOLE 1% CREAM TP SCH ×2 (09:51→22:05)
[2023-07-13] MEDS: ASCORBIC ACID 500 MG TABLET (FP) PO SCH (09:51)
[2023-07-13] MEDS: APIXABAN 2.5 MG TABLET PO SCH ×2 (09:51→22:03)
[2023-07-13] MEDS: predniSONE 5 MG TABLET (UD) PO SCH (09:51)
[2023-07-13] MEDS: COLLAGENASE CLOSTRIDIUM HIST. 30 GRAMS TUBE TP SCH (09:52)
[2023-07-13] MEDS: NYSTATIN POWDER 100,000 UNITS/GM - 15 GM TOPICAL POWDER TP SCH (09:52)
[2023-07-13] MEDS: ACETAMINOPHEN 325 MG TABLET (FP) PO PRN (11:39)
[2023-07-14] MEDS: AMPICILLIN NA/SULBACTAM NA 1.5 GM in SODIUM CHLORIDE 100 ML IVPB SCH ×3 (02:37→17:20)
[2023-07-14] MEDS: INSULIN SLIDING SCALE (NOVOLOG) 1 VIAL SQ SCH ×4 (07:01→21:15)
[2023-07-14] MEDS: LEVOTHYROXINE NA 25 MCG TABLET (FP) PO SCH (07:02)
[2023-07-14 07:45] LABS: BASO % 0.6 % (0-2.0); EOS % 1.9 % (0-4.5); HEMATOCRIT 27.4 % (32.4-45.2); HEMOGLOBIN 8.7 GM/dL (10.7-15.3); LYMPH % 24.3 % (8-40); MCH 26.2 pg (25.7-33.7); MCHC 31.7 g/dl (32.0-36.0); MEAN CELL VOLUME 82.8 fl (80-96); MONO % 7.7 % (3.8-10.2); NEUT % 65.5 % (42.8-82.8); PLATELET COUNT 659 10^3/uL (134-434); RBC 3.31 M/mm3 (3.60-5.2); RDW 17.8 % (11.6-15.6); WHITE BLOOD COUNT 9.8 K/mm3 (4.0-10.0)
[2023-07-14 08:09] LABS: POTASSIUM 4.3 mmol/L (3.5-5.1)
[2023-07-14 08:14] LABS: BLOOD UREA NITROGEN 24.6 mg/dL (7-18); CALCIUM 9.2 mg/dL (8.5-10.1)
[2023-07-14 08:18] LABS: CREATININE 0.7 mg/dL (0.55-1.3)
[2023-07-14] MEDS: diphenhydrAMINE HCL 25 MG CAPSULE (FP) PO PRN ×2 (09:18→21:13)
[2023-07-14] MEDS: AMINO ACIDS/PROTEIN HYDROLYS 30 ML LIQUID.PKT PO SCH ×2 (09:19→17:17)
[2023-07-14] MEDS: ZINC SULFATE 220 MG CAPSULE (FP) PO SCH (09:20)
[2023-07-14] MEDS: APIXABAN 2.5 MG TABLET PO SCH ×2 (09:20→21:12)
[2023-07-14] MEDS: ASCORBIC ACID 500 MG TABLET (FP) PO SCH (09:20)
[2023-07-14] MEDS: PANTOPRAZOLE 40 MG TABLET PO SCH (09:20)
[2023-07-14] MEDS: predniSONE 5 MG TABLET (UD) PO SCH (09:20)
[2023-07-14] MEDS: NYSTATIN POWDER 100,000 UNITS/GM - 15 GM TOPICAL POWDER TP SCH (09:22)
[2023-07-14] MEDS: COLLAGENASE CLOSTRIDIUM HIST. 30 GRAMS TUBE TP SCH (09:22)
[2023-07-14] MEDS: CLOTRIMAZOLE 1% CREAM TP SCH ×2 (09:23→21:14)
[2023-07-14] MEDS ORDERED: AMPICILLIN NA/SULBACTAM NA 1.5 GM VIAL ONE ×2 (17:18→17:19)
[2023-07-14] MEDS: ACETAMINOPHEN 325 MG TABLET (FP) PO PRN (21:13)
[2023-07-15] MEDS: AMPICILLIN NA/SULBACTAM NA 1.5 GM in SODIUM CHLORIDE 100 ML IVPB SCH ×3 (01:41→17:52)
[2023-07-15] MEDS: INSULIN SLIDING SCALE (NOVOLOG) 1 VIAL SQ SCH ×4 (06:13→23:47)
[2023-07-15] MEDS: LEVOTHYROXINE NA 25 MCG TABLET (FP) PO SCH (06:15)
[2023-07-15] MEDS: AMINO ACIDS/PROTEIN HYDROLYS 30 ML LIQUID.PKT PO SCH ×3 (08:41→17:52)
[2023-07-15] MEDS: MULTIVITAMINS (DAILY MVI) TABLET (FP) PO SCH (09:52)
[2023-07-15] MEDS: ASCORBIC ACID 500 MG TABLET (FP) PO SCH (09:52)
[2023-07-15] MEDS: ZINC SULFATE 220 MG CAPSULE (FP) PO SCH (09:52)
[2023-07-15] MEDS: NYSTATIN POWDER 100,000 UNITS/GM - 15 GM TOPICAL POWDER TP SCH (09:53)
[2023-07-15] MEDS: predniSONE 5 MG TABLET (UD) PO SCH (09:53)
[2023-07-15] MEDS: APIXABAN 2.5 MG TABLET PO SCH ×2 (09:53→22:59)
[2023-07-15] MEDS: PANTOPRAZOLE 40 MG TABLET PO SCH (09:53)
[2023-07-15] MEDS: CLOTRIMAZOLE 1% CREAM TP SCH ×2 (09:54→22:59)
[2023-07-15] MEDS: COLLAGENASE CLOSTRIDIUM HIST. 30 GRAMS TUBE TP SCH (11:10)
[2023-07-15] MEDS: diphenhydrAMINE HCL 25 MG CAPSULE (FP) PO PRN ×2 (11:12→18:30)
[2023-07-15] MEDS: MELATONIN 1 MG TABLET PO PRN (22:59)
[2023-07-15] MEDS: ACETAMINOPHEN 325 MG TABLET (FP) PO PRN (22:59)
[2023-07-16] MEDS: AMPICILLIN NA/SULBACTAM NA 1.5 GM in SODIUM CHLORIDE 100 ML IVPB SCH ×3 (01:39→17:06)
[2023-07-16] MEDS: LEVOTHYROXINE NA 25 MCG TABLET (FP) PO SCH (06:41)
[2023-07-16] MEDS: INSULIN SLIDING SCALE (NOVOLOG) 1 VIAL SQ SCH ×4 (06:44→22:24)
[2023-07-16] MEDS: AMINO ACIDS/PROTEIN HYDROLYS 30 ML LIQUID.PKT PO SCH ×3 (08:42→17:06)
[2023-07-16] MEDS: MULTIVITAMINS (DAILY MVI) TABLET (FP) PO SCH (10:00)
[2023-07-16] MEDS: ASCORBIC ACID 500 MG TABLET (FP) PO SCH (10:00)
[2023-07-16] MEDS: PANTOPRAZOLE 40 MG TABLET PO SCH (10:01)
[2023-07-16] MEDS: predniSONE 5 MG TABLET (UD) PO SCH (10:01)
[2023-07-16] MEDS: ZINC SULFATE 220 MG CAPSULE (FP) PO SCH (10:01)
[2023-07-16] MEDS: APIXABAN 2.5 MG TABLET PO SCH ×2 (10:01→21:41)
[2023-07-16] MEDS: NYSTATIN POWDER 100,000 UNITS/GM - 15 GM TOPICAL POWDER TP SCH (10:02)
[2023-07-16] MEDS: COLLAGENASE CLOSTRIDIUM HIST. 30 GRAMS TUBE TP SCH (10:03)
[2023-07-16] MEDS: CLOTRIMAZOLE 1% CREAM TP SCH ×2 (10:04→21:41)
[2023-07-16] MEDS: diphenhydrAMINE HCL 25 MG CAPSULE (FP) PO PRN ×2 (10:42→21:41)
[2023-07-16] MEDS ORDERED: INSULIN (NOVOLOG) ASPART 100 UNITS/ML 10ML VIAL ONE (21:40)
[2023-07-16] MEDS: MIRTAZAPINE 15 MG TABLET (FP) PO SCH (21:41)
[2023-07-16] MEDS: MELATONIN 1 MG TABLET PO PRN (21:41)
[2023-07-17] MEDS: AMPICILLIN NA/SULBACTAM NA 1.5 GM in SODIUM CHLORIDE 100 ML IVPB SCH ×3 (02:09→17:43)
[2023-07-17] MEDS: INSULIN SLIDING SCALE (NOVOLOG) 1 VIAL SQ SCH ×4 (06:04→22:18)
[2023-07-17] MEDS: LEVOTHYROXINE NA 25 MCG TABLET (FP) PO SCH (06:04)
[2023-07-17 09:02] LABS: BASO % 0.6 % (0-2.0); EOS % 2.7 % (0-4.5); HEMATOCRIT 29.6 % (32.4-45.2); HEMOGLOBIN 9.4 GM/dL (10.7-15.3); LYMPH % 31.7 % (8-40); MCH 26.4 pg (25.7-33.7); MCHC 31.8 g/dl (32.0-36.0); MEAN CELL VOLUME 83.2 fl (80-96); MEAN PLT VOLUME 7.1 fl (7.5-11.1); PLATELET COUNT 620 10^3/uL (134-434); RBC 3.56 M/mm3 (3.60-5.2); RDW 17.8 % (11.6-15.6); WHITE BLOOD COUNT 8.9 K/mm3 (4.0-10.0)
[2023-07-17 09:13] LABS: POTASSIUM 4.1 mmol/L (3.5-5.1)
[2023-07-17 09:23] LABS: BLOOD UREA NITROGEN 29.4 mg/dL (7-18)
[2023-07-17 09:24] LABS: CALCIUM 9.5 mg/dL (8.5-10.1)
[2023-07-17 09:25] LABS: CREATININE 0.6 mg/dL (0.55-1.3)
[2023-07-17] MEDS: AMINO ACIDS/PROTEIN HYDROLYS 30 ML LIQUID.PKT PO SCH ×3 (10:49→17:43)
[2023-07-17] MEDS: APIXABAN 2.5 MG TABLET PO SCH ×2 (10:49→21:32)
[2023-07-17] MEDS: ASCORBIC ACID 500 MG TABLET (FP) PO SCH (10:50)
[2023-07-17] MEDS: COLLAGENASE CLOSTRIDIUM HIST. 30 GRAMS TUBE TP SCH (10:51)
[2023-07-17] MEDS ORDERED: INSULIN (NOVOLOG) ASPART 100 UNITS/ML 10ML VIAL ONE ×3 (12:09→17:35)
[2023-07-17] MEDS: NYSTATIN POWDER 100,000 UNITS/GM - 15 GM TOPICAL POWDER TP SCH (12:12)
[2023-07-17] MEDS: ZINC SULFATE 220 MG CAPSULE (FP) PO SCH (12:12)
[2023-07-17] MEDS: MULTIVITAMINS (DAILY MVI) TABLET (FP) PO SCH (12:12)
[2023-07-17] MEDS: predniSONE 5 MG TABLET (UD) PO SCH (12:12)
[2023-07-17] MEDS: PANTOPRAZOLE 40 MG TABLET PO SCH (12:12)
[2023-07-17] MEDS: CLOTRIMAZOLE 1% CREAM TP SCH ×2 (12:13→21:36)
[2023-07-17] MEDS: ACETAMINOPHEN 325 MG TABLET (FP) PO PRN ×2 (12:28→21:30)
[2023-07-17] MEDS: diphenhydrAMINE HCL 25 MG CAPSULE (FP) PO PRN (19:01)
[2023-07-17] MEDS: MIRTAZAPINE 15 MG TABLET (FP) PO SCH (21:33)
[2023-07-18] MEDS: AMPICILLIN NA/SULBACTAM NA 1.5 GM in SODIUM CHLORIDE 100 ML IVPB SCH ×3 (02:17→19:00)
[2023-07-18] MEDS: LEVOTHYROXINE NA 25 MCG TABLET (FP) PO SCH (06:56)
[2023-07-18] MEDS: INSULIN SLIDING SCALE (NOVOLOG) 1 VIAL SQ SCH ×4 (06:57→21:28)
[2023-07-18] MEDS: ASCORBIC ACID 500 MG TABLET (FP) PO SCH (09:17)
[2023-07-18] MEDS: ZINC SULFATE 220 MG CAPSULE (FP) PO SCH (09:17)
[2023-07-18] MEDS: PANTOPRAZOLE 40 MG TABLET PO SCH (09:17)
[2023-07-18] MEDS: AMINO ACIDS/PROTEIN HYDROLYS 30 ML LIQUID.PKT PO SCH ×3 (09:17→16:52)
[2023-07-18] MEDS: predniSONE 5 MG TABLET (UD) PO SCH (09:18)
[2023-07-18] MEDS: APIXABAN 2.5 MG TABLET PO SCH ×2 (09:18→21:28)
[2023-07-18] MEDS: NYSTATIN POWDER 100,000 UNITS/GM - 15 GM TOPICAL POWDER TP SCH (09:18)
[2023-07-18] MEDS: CLOTRIMAZOLE 1% CREAM TP SCH ×2 (09:19→22:25)
[2023-07-18] MEDS: COLLAGENASE CLOSTRIDIUM HIST. 30 GRAMS TUBE TP SCH (09:20)
[2023-07-18] MEDS: MULTIVITAMINS (DAILY MVI) TABLET (FP) PO SCH (12:02)
[2023-07-18] MEDS: diphenhydrAMINE HCL 25 MG CAPSULE (FP) PO PRN (13:59)
[2023-07-18] MEDS ORDERED: INSULIN (NOVOLOG) ASPART 100 UNITS/ML 10ML VIAL ONE ×2 (16:49→21:22)
[2023-07-18] MEDS: LIDOCAINE 5% TOPICAL PATCH TP SCH (18:59)
[2023-07-18] MEDS: MIRTAZAPINE 15 MG TABLET (FP) PO SCH (21:28)
[2023-07-18] MEDS: LIDOCAINE PATCH REMOVAL MC SCH (22:47)
[2023-07-19] MEDS: diphenhydrAMINE HCL 25 MG CAPSULE (FP) PO PRN
[2023-07-19] MEDS: AMPICILLIN NA/SULBACTAM NA 1.5 GM in SODIUM CHLORIDE 100 ML IVPB SCH ×3 (01:20→17:15)
[2023-07-19] MEDS: INSULIN SLIDING SCALE (NOVOLOG) 1 VIAL SQ SCH ×4 (06:47→23:11)
[2023-07-19] MEDS: LEVOTHYROXINE NA 25 MCG TABLET (FP) PO SCH (06:47)
[2023-07-19] MEDS: AMINO ACIDS/PROTEIN HYDROLYS 30 ML LIQUID.PKT PO SCH ×3 (09:25→17:03)
[2023-07-19] MEDS: LIDOCAINE 5% TOPICAL PATCH TP SCH (09:25)
[2023-07-19] MEDS: ASCORBIC ACID 500 MG TABLET (FP) PO SCH (09:26)
[2023-07-19] MEDS: APIXABAN 2.5 MG TABLET PO SCH ×2 (09:26→23:04)
[2023-07-19] MEDS: ZINC SULFATE 220 MG CAPSULE (FP) PO SCH (09:26)
[2023-07-19] MEDS: PANTOPRAZOLE 40 MG TABLET PO SCH (09:26)
[2023-07-19] MEDS: predniSONE 5 MG TABLET (UD) PO SCH (09:26)
[2023-07-19] MEDS: MULTIVITAMINS (DAILY MVI) TABLET (FP) PO SCH (09:26)
[2023-07-19] MEDS: NYSTATIN POWDER 100,000 UNITS/GM - 15 GM TOPICAL POWDER TP SCH (09:27)
[2023-07-19] MEDS: COLLAGENASE CLOSTRIDIUM HIST. 30 GRAMS TUBE TP SCH (09:28)
[2023-07-19] MEDS: CLOTRIMAZOLE 1% CREAM TP SCH ×2 (09:29→23:04)
[2023-07-19] MEDS ORDERED: INSULIN (NOVOLOG) ASPART 100 UNITS/ML 10ML VIAL ONE (11:52)
[2023-07-19] MEDS: ACETAMINOPHEN 325 MG TABLET (FP) PO PRN (11:54)
[2023-07-19] MEDS ORDERED: FLUCONAZOLE 150 MG TABLET PO ONE (12:00)
[2023-07-19] MEDS ORDERED: INSULIN (LEVEMIR) 100 UNITS/ML UNITS SQ SCH (22:00)
[2023-07-19] MEDS: LIDOCAINE PATCH REMOVAL MC SCH (23:01)
[2023-07-19] MEDS: MIRTAZAPINE 15 MG TABLET (FP) PO SCH (23:02)
[2023-07-20] MEDS: AMPICILLIN NA/SULBACTAM NA 1.5 GM in SODIUM CHLORIDE 100 ML IVPB SCH (03:22)
[2023-07-20] MEDS: LEVOTHYROXINE NA 25 MCG TABLET (FP) PO SCH (06:04)
[2023-07-20] MEDS: INSULIN SLIDING SCALE (NOVOLOG) 1 VIAL SQ SCH ×4 (06:18→21:31)
[2023-07-20] MEDS: AMINO ACIDS/PROTEIN HYDROLYS 30 ML LIQUID.PKT PO SCH ×3 (09:38→17:03)
[2023-07-20] MEDS: MULTIVITAMINS (DAILY MVI) TABLET (FP) PO SCH (09:40)
[2023-07-20] MEDS: APIXABAN 2.5 MG TABLET PO SCH ×2 (09:40→21:30)
[2023-07-20] MEDS: ZINC SULFATE 220 MG CAPSULE (FP) PO SCH (09:40)
[2023-07-20] MEDS: ASCORBIC ACID 500 MG TABLET (FP) PO SCH (09:40)
[2023-07-20] MEDS: predniSONE 5 MG TABLET (UD) PO SCH (09:40)
[2023-07-20] MEDS: LIDOCAINE 5% TOPICAL PATCH TP SCH (09:40)
[2023-07-20] MEDS: PANTOPRAZOLE 40 MG TABLET PO SCH (09:40)
[2023-07-20] MEDS: COLLAGENASE CLOSTRIDIUM HIST. 30 GRAMS TUBE TP SCH (09:53)
[2023-07-20] MEDS: NYSTATIN POWDER 100,000 UNITS/GM - 15 GM TOPICAL POWDER TP SCH (09:53)
[2023-07-20] MEDS: CLOTRIMAZOLE 1% CREAM TP SCH ×2 (09:53→21:31)
[2023-07-20] MEDS ORDERED: INSULIN (NOVOLOG) ASPART 100 UNITS/ML 10ML VIAL ONE ×2 (11:59→21:29)
[2023-07-20] MEDS: AMOX TR/POT CLAV 500MG/125MG TABLETS (FP) PO SCH (17:03)
[2023-07-20] MEDS: INSULIN (LEVEMIR) 100 UNITS/ML UNITS SQ SCH (21:30)
[2023-07-20] MEDS: MIRTAZAPINE 15 MG TABLET (FP) PO SCH (21:30)
[2023-07-20] MEDS: LIDOCAINE PATCH REMOVAL MC SCH (21:31)
[2023-07-20] MEDS: ACETAMINOPHEN 325 MG TABLET (FP) PO PRN (21:32)
[2023-07-20] MEDS: MELATONIN 1 MG TABLET PO PRN (21:33)
[2023-07-20] MEDS: diphenhydrAMINE HCL 25 MG CAPSULE (FP) PO PRN (21:33)
[2023-07-21] MEDS: LEVOTHYROXINE NA 25 MCG TABLET (FP) PO SCH (06:20)
[2023-07-21] MEDS: INSULIN SLIDING SCALE (NOVOLOG) 1 VIAL SQ SCH ×4 (06:26→22:48)
[2023-07-21] MEDS: AMINO ACIDS/PROTEIN HYDROLYS 30 ML LIQUID.PKT PO SCH ×3 (08:45→16:42)
[2023-07-21] MEDS: AMOX TR/POT CLAV 500MG/125MG TABLETS (FP) PO SCH ×2 (08:45→16:42)
[2023-07-21] MEDS: diphenhydrAMINE HCL 25 MG CAPSULE (FP) PO PRN ×2 (10:42→22:32)
[2023-07-21] MEDS: ASCORBIC ACID 500 MG TABLET (FP) PO SCH (10:42)
[2023-07-21] MEDS: ZINC SULFATE 220 MG CAPSULE (FP) PO SCH (10:42)
[2023-07-21] MEDS: PANTOPRAZOLE 40 MG TABLET PO SCH (10:42)
[2023-07-21] MEDS: MULTIVITAMINS (DAILY MVI) TABLET (FP) PO SCH (10:42)
[2023-07-21] MEDS: APIXABAN 2.5 MG TABLET PO SCH ×2 (10:43→22:32)
[2023-07-21] MEDS: predniSONE 5 MG TABLET (UD) PO SCH (10:43)
[2023-07-21] MEDS: INSULIN (LEVEMIR) 100 UNITS/ML UNITS SQ SCH ×2 (10:43→22:48)
[2023-07-21] MEDS: NYSTATIN POWDER 100,000 UNITS/GM - 15 GM TOPICAL POWDER TP SCH (10:44)
[2023-07-21] MEDS: LIDOCAINE 5% TOPICAL PATCH TP SCH (11:31)
[2023-07-21] MEDS: COLLAGENASE CLOSTRIDIUM HIST. 30 GRAMS TUBE TP SCH (11:33)
[2023-07-21] MEDS: CLOTRIMAZOLE 1% CREAM TP SCH ×2 (11:33→22:33)
[2023-07-21 14:53] VITALS: RESP 18
[2023-07-21] MEDS ORDERED: INSULIN (NOVOLOG) ASPART 100 UNITS/ML 10ML VIAL ONE ×2 (16:37→22:47)
[2023-07-21] MEDS: MIRTAZAPINE 15 MG TABLET (FP) PO SCH (22:32)
[2023-07-21] MEDS: ACETAMINOPHEN 325 MG TABLET (FP) PO PRN (22:32)
[2023-07-21] MEDS: LIDOCAINE PATCH REMOVAL MC SCH (22:33)
[2023-07-22] MEDS: diphenhydrAMINE HCL 25 MG CAPSULE (FP) PO PRN (05:05)
[2023-07-22] MEDS: LEVOTHYROXINE NA 25 MCG TABLET (FP) PO SCH (06:25)
[2023-07-22] MEDS: INSULIN SLIDING SCALE (NOVOLOG) 1 VIAL SQ SCH ×3 (06:25→17:09)
[2023-07-22 09:53] LABS: BASO % 0.5 % (0-2.0); EOS % 2.2 % (0-4.5); HEMOGLOBIN 9.6 GM/dL (10.7-15.3); LYMPH % 28.1 % (8-40); MCH 26.6 pg (25.7-33.7); MONO % 7.1 % (3.8-10.2); NEUT % 62.1 % (42.8-82.8); PLATELET COUNT 509 10^3/uL (134-434); RBC 3.61 M/mm3 (3.60-5.2); RDW 17.8 % (11.6-15.6); WHITE BLOOD COUNT 10.9 K/mm3 (4.0-10.0)
[2023-07-22 10:17] LABS: POTASSIUM 3.9 mmol/L (3.5-5.1)
[2023-07-22] MEDS: AMINO ACIDS/PROTEIN HYDROLYS 30 ML LIQUID.PKT PO SCH ×3 (10:21→17:10)
[2023-07-22] MEDS: predniSONE 5 MG TABLET (UD) PO SCH (10:21)
[2023-07-22] MEDS: PANTOPRAZOLE 40 MG TABLET PO SCH (10:21)
[2023-07-22] MEDS: APIXABAN 2.5 MG TABLET PO SCH (10:21)
[2023-07-22] MEDS: ZINC SULFATE 220 MG CAPSULE (FP) PO SCH (10:21)
[2023-07-22] MEDS: MULTIVITAMINS (DAILY MVI) TABLET (FP) PO SCH (10:21)
[2023-07-22] MEDS: AMOX TR/POT CLAV 500MG/125MG TABLETS (FP) PO SCH ×2 (10:21→17:09)
[2023-07-22] MEDS: ASCORBIC ACID 500 MG TABLET (FP) PO SCH (10:21)
[2023-07-22] MEDS: NYSTATIN POWDER 100,000 UNITS/GM - 15 GM TOPICAL POWDER TP SCH (10:22)
[2023-07-22] MEDS: CLOTRIMAZOLE 1% CREAM TP SCH (10:22)
[2023-07-22 10:34] LABS: CALCIUM 9.3 mg/dL (8.5-10.1)
[2023-07-22 10:35] LABS: BLOOD UREA NITROGEN 40.3 mg/dL (7-18)
[2023-07-22 10:38] LABS: CREATININE 0.7 mg/dL (0.55-1.3)
[2023-07-22] MEDS ORDERED: INSULIN (NOVOLOG) ASPART 100 UNITS/ML 10ML VIAL ONE (11:19)
[2023-07-22] MEDS ORDERED: LIDOCAINE 4% PATCH TP SCH (11:30)
[2023-07-22] MEDS: LIDOCAINE 5% TOPICAL PATCH TP SCH (11:35)
[2023-07-22] MEDS: INSULIN (LEVEMIR) 100 UNITS/ML UNITS SQ SCH (11:53)
[2023-07-22] MEDS: COLLAGENASE CLOSTRIDIUM HIST. 30 GRAMS TUBE TP SCH (11:53)
[2023-07-22 16:18] VITALS: BP 135/71; PULSE 99; TEMP 98.4
[2023-07-22] MEDS ORDERED: LIDOCAINE PATCH REMOVAL MC SCH (22:00)
== END 2023-07-22 18:58 | disposition home health service (06) | DRG 603 ==
LOC: JER 19:31 → JERBED 22:07 → J7W 07-10 15:36 → J8W 07-16 18:32
PROVIDERS: ADMIT Internal Medicine; ATTEND Internal Medicine
DX: L03.317 Cellulitis of buttock (principal); L89.309 Pressure ulcer of unspecified buttock, unspecified stage; B37.31 Acute candidiasis of vulva and vagina; L89.152 Pressure ulcer of sacral region, stage 2; M06.9 Rheumatoid arthritis, unspecified; E11.9 Type 2 diabetes mellitus without complications; E03.9 Hypothyroidism, unspecified
CPT/HCPCS: 36415; 71045-TC-FY; 72170-TC-FY; 80048; 80053; 81003; 82962; 83735; 84100; 84443; 85025; 85610; 85651; 85730; 86140; 87040; 87070; 87086; 87186; 87205; 93005; 93010; 99285-25; E0186

== ENCOUNTER 2023-09-19 21:10 | Inpatient (IN) | payer OTHER ==
[2023-09-19] MEDS ORDERED: CLINDAMYCIN 600MG PREMIX IVPB 600 MG/50 ML BAG IVPB ONE ×2 (22:11→23:06)
[2023-09-19] MEDS ORDERED: AMPICILLIN NA/SULBACTAM NA 3 GM in SODIUM CHLORIDE 100 ML IVPB ONE (22:12)
[2023-09-19] MEDS ORDERED: ACETAMINOPHEN 1000 MG/100 ML BAG IVPB ONE (22:15)
[2023-09-19 23:05] LABS: BASO % 0.5 % (0-2.0); EOS % 0.8 % (0-4.5); HEMATOCRIT 27.6 % (32.4-45.2); HEMOGLOBIN 8.8 GM/dL (10.7-15.3); LYMPH % 15.8 % (8-40); MCH 25.9 pg (25.7-33.7); MCHC 32.1 g/dl (32.0-36.0); MEAN CELL VOLUME 80.7 fl (80-96); MEAN PLT VOLUME 7.3 fl (7.5-11.1); MONO % 6.5 % (3.8-10.2); NEUT % 76.4 % (42.8-82.8); PLATELET COUNT 652 10^3/uL (134-434); RBC 3.41 M/mm3 (3.60-5.2); RDW 14.8 % (11.6-15.6); WHITE BLOOD COUNT 13.3 K/mm3 (4.0-10.0)
[2023-09-19] MEDS ORDERED: ACETAMINOPHEN INJECTION 100 ML IVPB ONE (23:06)
[2023-09-19] MEDS ORDERED: AMPICILLIN NA/SULBACTAM NA 3 GM VIAL ONE (23:06)
[2023-09-19 23:25] LABS: POTASSIUM 4.5 mmol/L (3.5-5.1)
[2023-09-19 23:26] LABS: CALCIUM 9.8 mg/dL (8.5-10.1)
[2023-09-19 23:27] LABS: ALBUMIN 2.6 g/dl (3.4-5.0); BLOOD UREA NITROGEN 27.8 mg/dL (7-18)
[2023-09-19 23:30] LABS: CREATININE 0.9 mg/dL (0.55-1.3)
[2023-09-19 23:32] LABS: BILIRUBIN,TOTAL 0.2 mg/dL (0.2-1); TOT PROT 7.2 g/dl (6.4-8.2)
[2023-09-20] MEDS ORDERED: DOCUSATE SODIUM 100 MG CAPSULE (FP) PO PRN ×2 (00:39→08:54)
[2023-09-20] MEDS ORDERED: SODIUM CHLORIDE 500 ML IV STA (05:07)
[2023-09-20] MEDS ORDERED: ACETAMINOPHEN 1000 MG/100 ML BAG IVPB PRN (06:00)
[2023-09-20] MEDS ORDERED: CLINDAMYCIN 600MG PREMIX IVPB 600 MG/50 ML BAG IVPB SCH (08:00)
[2023-09-20 08:02] LABS: LACTIC ACID 3.2 mmol/L (0.4-2.0)
[2023-09-20] MEDS ORDERED: POLYETHYLENE GLYCOL (HEALTHYLAX) 3350 17 GM PACKET PO PRN (08:54)
[2023-09-20] MEDS ORDERED: FLUCONAZOLE 150 MG TABLET PO SCH (09:00)
[2023-09-20] MEDS: MULTIVITAMINS (DAILY MVI) TABLET (FP) PO SCH (10:18)
[2023-09-20] MEDS: predniSONE 5 MG TABLET (UD) PO SCH (10:18)
[2023-09-20] MEDS: PANTOPRAZOLE 40 MG TABLET PO SCH (10:18)
[2023-09-20] MEDS: APIXABAN 5 MG TABLET PO SCH ×2 (10:18→22:15)
[2023-09-20] MEDS: ASCORBIC ACID 500 MG TABLET (FP) PO SCH (10:18)
[2023-09-20] MEDS: GABAPENTIN 300 MG CAPSULE PO SCH ×2 (10:19→22:15)
[2023-09-20] MEDS: AMPICILLIN NA/SULBACTAM NA 3 GM in SODIUM CHLORIDE 100 ML IVPB SCH ×5 (10:29→22:15)
[2023-09-20] MEDS: INSULIN SLIDING SCALE (NOVOLOG) 1 VIAL SQ SCH ×4 (10:30→23:06)
[2023-09-20] MEDS: SODIUM CHLORIDE 1,000 ML IV SCH (10:35)
[2023-09-20] MEDS: LEVOTHYROXINE NA 25 MCG TABLET (FP) PO SCH (10:35)
[2023-09-20] MEDS: NYSTATIN 100,000 UNIT/GM TOPICAL CREAM 15 GM TUBE TP SCH ×2 (10:47→22:15)
[2023-09-20] MEDS ORDERED: IRON SUCROSE INJECTION 200 MG in SODIUM CHLORIDE 90 ML IVPB ONE (11:30)
[2023-09-20] MEDS: MAG HYDROX/AL HYDROX/SIMETH 30 ML UNIT-DOSE CUP PO SCH ×2 (11:38→17:06)
[2023-09-20] MEDS: DAPTOMYCIN 300 MG in SODIUM CHLORIDE 50 ML IVPB SCH (15:38)
[2023-09-20] MEDS ORDERED: SODIUM CHLORIDE 1,000 ML IV SCH (16:45)
[2023-09-20] MEDS ORDERED: INSULIN (NOVOLOG) ASPART 100 UNITS/ML 10ML VIAL ONE ×2 (17:22→23:04)
[2023-09-21] MEDS: MAG HYDROX/AL HYDROX/SIMETH 30 ML UNIT-DOSE CUP PO SCH ×4 (01:35→17:34)
[2023-09-21] MEDS: AMPICILLIN NA/SULBACTAM NA 3 GM in SODIUM CHLORIDE 100 ML IVPB SCH ×4 (03:30→23:35)
[2023-09-21] MEDS: SODIUM CHLORIDE 1,000 ML IV SCH (06:21)
[2023-09-21] MEDS: LEVOTHYROXINE NA 25 MCG TABLET (FP) PO SCH (06:46)
[2023-09-21] MEDS: INSULIN SLIDING SCALE (NOVOLOG) 1 VIAL SQ SCH ×4 (07:30→23:48)
[2023-09-21] MEDS: AMINO ACIDS/PROTEIN HYDROLYS 30 ML LIQUID.PKT PO SCH (08:06)
[2023-09-21 08:52] LABS: BASO % 0.6 % (0-2.0); EOS % 1.9 % (0-4.5); HEMOGLOBIN 8.8 GM/dL (10.7-15.3); LYMPH % 18.4 % (8-40); MCH 26.6 pg (25.7-33.7); MCHC 32.6 g/dl (32.0-36.0); MEAN CELL VOLUME 81.7 fl (80-96); MEAN PLT VOLUME 7.5 fl (7.5-11.1); MONO % 6.1 % (3.8-10.2); PLATELET COUNT 652 10^3/uL (134-434); RDW 14.7 % (11.6-15.6); WHITE BLOOD COUNT 10.9 K/mm3 (4.0-10.0)
[2023-09-21 08:57] LABS: INR 1.48 (0.83-1.09); PROTHROMBIN TIME (PATIENT) 17.1 SEC (9.7-13.0)
[2023-09-21 08:59] LABS: ACTIVATED PTT 27.5 SECONDS (25.2-36.5)
[2023-09-21 09:20] LABS: POTASSIUM 4.2 mmol/L (3.5-5.1)
[2023-09-21 09:23] LABS: CALCIUM 9.6 mg/dL (8.5-10.1)
[2023-09-21 09:24] LABS: MAGNESIUM 1.9 mg/dL (1.8-2.4)
[2023-09-21 09:27] LABS: CREATININE 0.7 mg/dL (0.55-1.3); PHOSPHOROUS 2.6 mg/dL (2.5-4.9)
[2023-09-21] MEDS: predniSONE 5 MG TABLET (UD) PO SCH (09:28)
[2023-09-21] MEDS: GABAPENTIN 300 MG CAPSULE PO SCH ×2 (09:28→23:36)
[2023-09-21] MEDS: ACETAMINOPHEN 325 MG TABLET (FP) PO PRN ×2 (09:28→20:38)
[2023-09-21] MEDS: MULTIVITAMINS (DAILY MVI) TABLET (FP) PO SCH (09:28)
[2023-09-21] MEDS: ASCORBIC ACID 500 MG TABLET (FP) PO SCH (09:28)
[2023-09-21] MEDS: APIXABAN 5 MG TABLET PO SCH ×2 (09:28→23:36)
[2023-09-21] MEDS: PANTOPRAZOLE 40 MG TABLET PO SCH (09:28)
[2023-09-21] MEDS: NYSTATIN 100,000 UNIT/GM TOPICAL CREAM 15 GM TUBE TP SCH ×2 (09:32→23:36)
[2023-09-21] MEDS: DAPTOMYCIN 300 MG in SODIUM CHLORIDE 50 ML IVPB SCH (15:48)
[2023-09-21 16:18] VITALS: BMI 26.9
[2023-09-21 19:28] VITALS: RESP 18
[2023-09-21] MEDS ORDERED: FENTANYL PATCH WASTE MC PRN (19:33)
[2023-09-21] MEDS ORDERED: fentaNYL 12mcg/hr PATCH.TD72 TD SCH (19:45)
[2023-09-22] MEDS: MAG HYDROX/AL HYDROX/SIMETH 30 ML UNIT-DOSE CUP PO SCH ×5 (00:42→23:52)
[2023-09-22] MEDS ORDERED: AMPICILLIN NA/SULBACTAM NA 3 GM VIAL ONE ×2 (03:36→23:41)
[2023-09-22] MEDS: AMPICILLIN NA/SULBACTAM NA 3 GM in SODIUM CHLORIDE 100 ML IVPB SCH ×4 (03:40→23:52)
[2023-09-22] MEDS: LEVOTHYROXINE NA 25 MCG TABLET (FP) PO SCH (06:38)
[2023-09-22] MEDS: SODIUM CHLORIDE 1,000 ML IV SCH (06:38)
[2023-09-22] MEDS: INSULIN SLIDING SCALE (NOVOLOG) 1 VIAL SQ SCH ×3 (07:35→17:11)
[2023-09-22] MEDS: AMINO ACIDS/PROTEIN HYDROLYS 30 ML LIQUID.PKT PO SCH (08:26)
[2023-09-22] MEDS: predniSONE 5 MG TABLET (UD) PO SCH (11:15)
[2023-09-22] MEDS: ASCORBIC ACID 500 MG TABLET (FP) PO SCH (11:15)
[2023-09-22] MEDS: APIXABAN 5 MG TABLET PO SCH ×2 (11:15→23:50)
[2023-09-22] MEDS: NYSTATIN 100,000 UNIT/GM TOPICAL CREAM 15 GM TUBE TP SCH ×2 (11:15→23:50)
[2023-09-22] MEDS: MULTIVITAMINS (DAILY MVI) TABLET (FP) PO SCH (11:15)
[2023-09-22] MEDS: PANTOPRAZOLE 40 MG TABLET PO SCH (11:15)
[2023-09-22] MEDS: GABAPENTIN 300 MG CAPSULE PO SCH ×2 (11:15→23:50)
[2023-09-22] MEDS ORDERED: ACETAMINOPHEN 325 MG TABLET (FP) PO ONE (13:00)
[2023-09-22] MEDS ORDERED: oxyCODONE HCL 5 MG TABLET PO ONE (13:00)
[2023-09-22] MEDS ORDERED: oxyCODONE HCL 5 MG TABLET PO PRN (16:55)
[2023-09-22] MEDS ORDERED: INSULIN (NOVOLOG) ASPART 100 UNITS/ML 10ML VIAL ONE ×2 (17:08→19:36)
[2023-09-23] MEDS: INSULIN SLIDING SCALE (NOVOLOG) 1 VIAL SQ SCH ×5 (00:30→21:29)
[2023-09-23] MEDS: AMPICILLIN NA/SULBACTAM NA 3 GM in SODIUM CHLORIDE 100 ML IVPB SCH ×4 (04:09→21:16)
[2023-09-23] MEDS: SODIUM CHLORIDE 1,000 ML IV SCH ×2 (05:38→12:17)
[2023-09-23] MEDS: MAG HYDROX/AL HYDROX/SIMETH 30 ML UNIT-DOSE CUP PO SCH ×3 (07:10→17:51)
[2023-09-23] MEDS: LEVOTHYROXINE NA 25 MCG TABLET (FP) PO SCH (07:39)
[2023-09-23] MEDS ORDERED: IRON SUCROSE INJECTION 200 MG in SODIUM CHLORIDE 90 ML IVPB ONE (09:00)
[2023-09-23] MEDS ORDERED: AMPICILLIN NA/SULBACTAM NA 3 GM VIAL ONE (12:07)
[2023-09-23] MEDS: ASCORBIC ACID 500 MG TABLET (FP) PO SCH (12:13)
[2023-09-23] MEDS: predniSONE 5 MG TABLET (UD) PO SCH (12:13)
[2023-09-23] MEDS: APIXABAN 5 MG TABLET PO SCH ×2 (12:13→21:29)
[2023-09-23] MEDS: GABAPENTIN 300 MG CAPSULE PO SCH ×2 (12:13→21:29)
[2023-09-23] MEDS: PANTOPRAZOLE 40 MG TABLET PO SCH (12:13)
[2023-09-23] MEDS: AMINO ACIDS/PROTEIN HYDROLYS 30 ML LIQUID.PKT PO SCH (12:13)
[2023-09-23] MEDS: ACETAMINOPHEN 325 MG TABLET (FP) PO PRN ×2 (12:14→17:28)
[2023-09-23] MEDS: MULTIVITAMINS (DAILY MVI) TABLET (FP) PO SCH (12:14)
[2023-09-23] MEDS: NYSTATIN 100,000 UNIT/GM TOPICAL CREAM 15 GM TUBE TP SCH ×2 (12:36→21:29)
[2023-09-23] MEDS ORDERED: INSULIN (NOVOLOG) ASPART 100 UNITS/ML 10ML VIAL ONE ×3 (12:47→21:05)
[2023-09-23 23:10] VITALS: TEMP 98.4
[2023-09-24] MEDS: MAG HYDROX/AL HYDROX/SIMETH 30 ML UNIT-DOSE CUP PO SCH ×3 (00:42→12:05)
[2023-09-24] MEDS: AMPICILLIN NA/SULBACTAM NA 3 GM in SODIUM CHLORIDE 100 ML IVPB SCH ×3 (02:40→15:10)
[2023-09-24] MEDS ORDERED: INSULIN (NOVOLOG) ASPART 100 UNITS/ML 10ML VIAL ONE ×2 (05:16→12:38)
[2023-09-24] MEDS: SODIUM CHLORIDE 1,000 ML IV SCH (05:46)
[2023-09-24] MEDS: INSULIN SLIDING SCALE (NOVOLOG) 1 VIAL SQ SCH ×3 (06:44→17:18)
[2023-09-24] MEDS: LEVOTHYROXINE NA 25 MCG TABLET (FP) PO SCH (06:44)
[2023-09-24] MEDS: APIXABAN 5 MG TABLET PO SCH (12:03)
[2023-09-24] MEDS: ASCORBIC ACID 500 MG TABLET (FP) PO SCH (12:03)
[2023-09-24] MEDS: GABAPENTIN 300 MG CAPSULE PO SCH (12:03)
[2023-09-24] MEDS: predniSONE 5 MG TABLET (UD) PO SCH (12:03)
[2023-09-24] MEDS: ACETAMINOPHEN 325 MG TABLET (FP) PO PRN (12:04)
[2023-09-24] MEDS: MULTIVITAMINS (DAILY MVI) TABLET (FP) PO SCH (12:04)
[2023-09-24] MEDS: AMINO ACIDS/PROTEIN HYDROLYS 30 ML LIQUID.PKT PO SCH (12:40)
[2023-09-24] MEDS: NYSTATIN 100,000 UNIT/GM TOPICAL CREAM 15 GM TUBE TP SCH (12:41)
[2023-09-24] MEDS: PANTOPRAZOLE 40 MG TABLET PO SCH (12:41)
[2023-09-24 14:51] VITALS: BP 114/77; PULSE 87
== END 2023-09-24 17:17 | disposition home health service (06) | DRG 638 ==
LOC: JER 21:10 → JERBED 23:38 → J8W 09-20 07:13
PROVIDERS: ADMIT Internal Medicine; ATTEND Family Medicine
DX: E11.69 Type 2 diabetes mellitus with other specified complication (principal); E87.20 Acidosis, unspecified; M46.28 Osteomyelitis of vertebra, sacral and sacrococcygeal region; L03.312 Cellulitis of back [any part except buttock and flank]; L02.31 Cutaneous abscess of buttock; N13.2 Hydronephrosis with renal and ureteral calculous obstruction; I10 Essential (primary) hypertension; M06.9 Rheumatoid arthritis, unspecified; E11.51 Type 2 diabetes mellitus with diabetic peripheral angiopathy without gangrene; J44.9 Chronic obstructive pulmonary disease, unspecified; E03.9 Hypothyroidism, unspecified; D64.9 Anemia, unspecified; D47.3 Essential (hemorrhagic) thrombocythemia; E78.5 Hyperlipidemia, unspecified; F17.210 Nicotine dependence, cigarettes, uncomplicated; A49.02 Methicillin resistant Staphylococcus aureus infection, unspecified site; E11.621 Type 2 diabetes mellitus with foot ulcer; L97.509 Non-pressure chronic ulcer of other part of unspecified foot with unspecified severity
CPT/HCPCS: 36415; 72192-TC; 73502-TC-LT-FY; 80048; 80053; 82550; 82962; 83540; 83550; 83605; 83735; 84100; 85025; 85610; 85651; 85730; 86140; 87040; 87070; 87186; 87205; 93005; 93010; 99285-25; E0186; J0878; J1756

== ENCOUNTER 2023-11-08 12:57 | Inpatient (IN) | payer OTHER ==
[2023-11-08] MEDS ORDERED: SODIUM CHLORIDE 0.9% 500 ML INFUS.BAG IV ONE ×2 (14:11→15:18)
[2023-11-08 14:25] LABS: BASO % 0.2 % (0-2.0); HEMOGLOBIN 9.9 GM/dL (10.7-15.3); LYMPH % 5.3 % (8-40); MCH 26.4 pg (25.7-33.7); MEAN CELL VOLUME 82.4 fl (80-96); MEAN PLT VOLUME 6.6 fl (7.5-11.1); MONO % 4.9 % (3.8-10.2); NEUT % 89.6 % (42.8-82.8); PLATELET COUNT 371 10^3/uL (134-434); RBC 3.75 M/mm3 (3.60-5.2); WHITE BLOOD COUNT 7.9 K/mm3 (4.0-10.0)
[2023-11-08 14:32] LABS: INR 1.5 (0.83-1.09); PROTHROMBIN TIME (PATIENT) 17.3 SEC (9.7-13.0)
[2023-11-08 14:35] LABS: ACTIVATED PTT 33.5 SECONDS (25.2-36.5)
[2023-11-08 14:48] LABS: POTASSIUM 4.7 mmol/L (3.5-5.1)
[2023-11-08 14:50] LABS: ALBUMIN 2.4 g/dl (3.4-5.0); BLOOD UREA NITROGEN 28.6 mg/dL (7-18); CALCIUM 9.1 mg/dL (8.5-10.1)
[2023-11-08 14:53] LABS: CREATININE 0.8 mg/dL (0.55-1.3)
[2023-11-08 14:55] LABS: BILIRUBIN,TOTAL 0.2 mg/dL (0.2-1); TOT PROT 7.3 g/dl (6.4-8.2)
[2023-11-08] MEDS ORDERED: AZITHROMYCIN IVPB 500 MG in DEXTROSE 5%-WATER - 250 ML IVPB ONE (15:18)
[2023-11-08] MEDS ORDERED: REMDESIVIR 200 MG in SODIUM CHLORIDE 250 ML IVPB ONE (17:32)
[2023-11-08] MEDS ORDERED: CEFTRIAXONE 1 GM/50 ML BAG ONE (17:33)
[2023-11-08] MEDS ORDERED: AZITHROMYCIN IVPB 500 MG/250 ML BAG IVPB ONE (17:34)
[2023-11-08] MEDS ORDERED: HEPARIN NA (PORCINE) 5,000 UNITS/ML 1ML VIAL SQ SCH (22:00)
[2023-11-08] MEDS: APIXABAN 5 MG TABLET PO SCH (23:01)
[2023-11-08] MEDS ORDERED: APIXABAN 5 MG TABLET ONE (23:06)
[2023-11-09] MEDS: LEVOTHYROXINE NA 25 MCG TABLET (FP) PO SCH (06:27)
[2023-11-09] MEDS ORDERED: REMDESIVIR 200 MG in SODIUM CHLORIDE 250 ML IVPB ONE ×2 (08:12→10:00)
[2023-11-09 09:08] LABS: BASO % 0.2 % (0-2.0); EOS % 0.1 % (0-4.5); HEMATOCRIT 30.9 % (32.4-45.2); HEMOGLOBIN 9.8 GM/dL (10.7-15.3); LYMPH % 16.7 % (8-40); MCH 26.2 pg (25.7-33.7); MCHC 31.8 g/dl (32.0-36.0); MEAN CELL VOLUME 82.3 fl (80-96); MEAN PLT VOLUME 6.7 fl (7.5-11.1); MONO % 6.4 % (3.8-10.2); NEUT % 76.6 % (42.8-82.8); PLATELET COUNT 444 10^3/uL (134-434); RBC 3.75 M/mm3 (3.60-5.2); RDW 17.2 % (11.6-15.6); WHITE BLOOD COUNT 6.4 K/mm3 (4.0-10.0)
[2023-11-09 09:36] LABS: ALBUMIN 2.2 g/dl (3.4-5.0); BLOOD UREA NITROGEN 27.1 mg/dL (7-18); CALCIUM 8.7 mg/dL (8.5-10.1)
[2023-11-09 09:38] LABS: MAGNESIUM 1.9 mg/dL (1.8-2.4)
[2023-11-09 09:39] LABS: BILIRUBIN,TOTAL 0.2 mg/dL (0.2-1); CREATININE 0.7 mg/dL (0.55-1.3)
[2023-11-09 09:40] LABS: TOT PROT 6.8 g/dl (6.4-8.2)
[2023-11-09] MEDS: APIXABAN 5 MG TABLET PO SCH ×2 (10:30→21:45)
[2023-11-09] MEDS: CEFTRIAXONE 1 GM in DEXTROSE 5%-WATER - 50 ML IVPB SCH (10:30)
[2023-11-09] MEDS: PANTOPRAZOLE 40 MG TABLET PO SCH (10:30)
[2023-11-09] MEDS: predniSONE 5 MG TABLET (UD) PO SCH (10:30)
[2023-11-09] MEDS: AZITHROMYCIN IVPB 500 MG/250 ML BAG IVPB SCH (10:31)
[2023-11-09] MEDS: DULoxetine HCL 20 MG CAPSULE.DR PO SCH (10:31)
[2023-11-09] MEDS ORDERED: ACETAMINOPHEN 1000 MG/100 ML BAG IVPB PRN (11:15)
[2023-11-10] MEDS: LEVOTHYROXINE NA 25 MCG TABLET (FP) PO SCH (06:24)
[2023-11-10 09:18] LABS: BASO % 0.3 % (0-2.0); HEMATOCRIT 28.5 % (32.4-45.2); HEMOGLOBIN 9.2 GM/dL (10.7-15.3); LYMPH % 15.5 % (8-40); MCH 26.4 pg (25.7-33.7); MCHC 32.2 g/dl (32.0-36.0); MEAN CELL VOLUME 81.8 fl (80-96); MEAN PLT VOLUME 6.6 fl (7.5-11.1); MONO % 6.8 % (3.8-10.2); NEUT % 77.4 % (42.8-82.8); PLATELET COUNT 486 10^3/uL (134-434); RBC 3.49 M/mm3 (3.60-5.2); WHITE BLOOD COUNT 6.4 K/mm3 (4.0-10.0)
[2023-11-10 09:33] LABS: POTASSIUM 3.8 mmol/L (3.5-5.1)
[2023-11-10 09:36] LABS: CALCIUM 8.5 mg/dL (8.5-10.1)
[2023-11-10 09:40] LABS: CREATININE 0.5 mg/dL (0.55-1.3)
[2023-11-10] MEDS: APIXABAN 5 MG TABLET PO SCH ×2 (10:19→22:18)
[2023-11-10] MEDS: DULoxetine HCL 20 MG CAPSULE.DR PO SCH (10:19)
[2023-11-10] MEDS: PANTOPRAZOLE 40 MG TABLET PO SCH (10:19)
[2023-11-10] MEDS: predniSONE 5 MG TABLET (UD) PO SCH (10:19)
[2023-11-10] MEDS: CEFTRIAXONE 1 GM in DEXTROSE 5%-WATER - 50 ML IVPB SCH (10:20)
[2023-11-10] MEDS: AZITHROMYCIN IVPB 500 MG/250 ML BAG IVPB SCH (11:12)
[2023-11-10] MEDS: REMDESIVIR 100 MG in SODIUM CHLORIDE 250 ML IVPB SCH (12:21)
[2023-11-10] MEDS: ASCORBIC ACID 500 MG TABLET (FP) PO SCH (22:19)
[2023-11-11] MEDS: LEVOTHYROXINE NA 25 MCG TABLET (FP) PO SCH (06:23)
[2023-11-11] MEDS: AMINO ACIDS/PROTEIN HYDROLYS 30 ML LIQUID.PKT PO SCH ×3 (09:01→16:58)
[2023-11-11] MEDS: ASCORBIC ACID 500 MG TABLET (FP) PO SCH ×2 (11:32→22:13)
[2023-11-11] MEDS: APIXABAN 5 MG TABLET PO SCH ×2 (11:32→22:14)
[2023-11-11] MEDS: PANTOPRAZOLE 40 MG TABLET PO SCH (11:32)
[2023-11-11] MEDS: MULTIVITAMINS (DAILY MVI) TABLET (FP) PO SCH (11:32)
[2023-11-11] MEDS: methylPREDNISolone NA SUCC 40 MG/1 ML VIAL IVPUSH SCH (11:33)
[2023-11-11] MEDS: DULoxetine HCL 20 MG CAPSULE.DR PO SCH (11:33)
[2023-11-11] MEDS: predniSONE 5 MG TABLET (UD) PO SCH (11:33)
[2023-11-11] MEDS: ZINC SULFATE 220 MG CAPSULE (FP) PO SCH (11:33)
[2023-11-11] MEDS: CEFTRIAXONE 1 GM in DEXTROSE 5%-WATER - 50 ML IVPB SCH (11:34)
[2023-11-11] MEDS: REMDESIVIR 100 MG in SODIUM CHLORIDE 250 ML IVPB SCH (11:34)
[2023-11-11] MEDS: AZITHROMYCIN IVPB 500 MG/250 ML BAG IVPB SCH (13:27)
[2023-11-11] MEDS ORDERED: ACETAMINOPHEN 325 MG TABLET (FP) PO PRN (16:26)
[2023-11-11] MEDS: traMADol HCL 50 MG TABLET PO PRN (16:57)
[2023-11-11] MEDS ORDERED: IRON SUCROSE INJECTION 200 MG in SODIUM CHLORIDE 90 ML IVPB ONE (21:00)
[2023-11-12] MEDS: LEVOTHYROXINE NA 25 MCG TABLET (FP) PO SCH (06:27)
[2023-11-12] MEDS: AMINO ACIDS/PROTEIN HYDROLYS 30 ML LIQUID.PKT PO SCH ×2 (12:05→18:05)
[2023-11-12] MEDS: ZINC SULFATE 220 MG CAPSULE (FP) PO SCH (12:06)
[2023-11-12] MEDS: predniSONE 5 MG TABLET (UD) PO SCH (12:06)
[2023-11-12] MEDS: CEFTRIAXONE 1 GM in DEXTROSE 5%-WATER - 50 ML IVPB SCH (12:06)
[2023-11-12] MEDS: PANTOPRAZOLE 40 MG TABLET PO SCH (12:06)
[2023-11-12] MEDS: ASCORBIC ACID 500 MG TABLET (FP) PO SCH ×2 (12:06→21:17)
[2023-11-12] MEDS: MULTIVITAMINS (DAILY MVI) TABLET (FP) PO SCH (12:06)
[2023-11-12] MEDS: APIXABAN 5 MG TABLET PO SCH ×2 (12:06→21:17)
[2023-11-12] MEDS: AZITHROMYCIN IVPB 500 MG/250 ML BAG IVPB SCH (12:07)
[2023-11-12] MEDS: methylPREDNISolone NA SUCC 40 MG/1 ML VIAL IVPUSH SCH (12:07)
[2023-11-12] MEDS: traMADol HCL 50 MG TABLET PO PRN (12:07)
[2023-11-13] MEDS: LEVOTHYROXINE NA 25 MCG TABLET (FP) PO SCH (06:08)
[2023-11-13] MEDS: AMINO ACIDS/PROTEIN HYDROLYS 30 ML LIQUID.PKT PO SCH ×3 (08:18→16:44)
[2023-11-13] MEDS: APIXABAN 5 MG TABLET PO SCH ×2 (10:14→21:50)
[2023-11-13] MEDS: PANTOPRAZOLE 40 MG TABLET PO SCH (10:14)
[2023-11-13] MEDS: ZINC SULFATE 220 MG CAPSULE (FP) PO SCH (10:14)
[2023-11-13] MEDS: MULTIVITAMINS (DAILY MVI) TABLET (FP) PO SCH (10:14)
[2023-11-13] MEDS: ASCORBIC ACID 500 MG TABLET (FP) PO SCH ×2 (10:14→21:50)
[2023-11-13] MEDS: methylPREDNISolone NA SUCC 40 MG/1 ML VIAL IVPUSH SCH (10:14)
[2023-11-13] MEDS: predniSONE 5 MG TABLET (UD) PO SCH (10:14)
[2023-11-13] MEDS: CEFTRIAXONE 1 GM in DEXTROSE 5%-WATER - 50 ML IVPB SCH (10:16)
[2023-11-13] MEDS: DULoxetine HCL 20 MG CAPSULE.DR PO SCH (10:18)
[2023-11-13] MEDS: AZITHROMYCIN IVPB 500 MG/250 ML BAG IVPB SCH (10:18)
[2023-11-13 14:49] VITALS: BMI 16.7
[2023-11-13] MEDS ORDERED: IRON SUCROSE INJECTION 200 MG in SODIUM CHLORIDE 90 ML IVPB ONE (23:00)
[2023-11-14] MEDS: LEVOTHYROXINE NA 25 MCG TABLET (FP) PO SCH (06:08)
[2023-11-14 08:04] LABS: EPI CELLS 10 /uL (0-25.1); HYALINE CASTS 2 /uL (0-3.1); URINE APPEARANCE TURBID; URINE BACTERIA >9,000 /uL (0-1359); URINE BILIRUBIN 1+ (NEGATIVE); URINE COLOR DK YELLOW; URINE GLUCOSE (UA) 3+ (NEGATIVE); URINE KETONE TRACE (NEGATIVE); URINE LEUK ESTERASE 2+ (NEGATIVE); URINE NITRITE NEGATIVE (NEGATIVE); URINE PROTEIN 1+ (NEGATIVE); URINE RBC 93 /uL (0-23.9); URINE UROBILINOGEN 0.2 mg/dL (0.2-1.0); URINE WBC 33 /uL (0-25.8)
[2023-11-14] MEDS: AMINO ACIDS/PROTEIN HYDROLYS 30 ML LIQUID.PKT PO SCH ×2 (08:04→11:39)
[2023-11-14 08:28] VITALS: BP 144/78; PULSE 66; RESP 16; TEMP 98
[2023-11-14 08:57] LABS: URINE CRYSTALS NEGATIVE /hpf
[2023-11-14] MEDS: APIXABAN 5 MG TABLET PO SCH (10:03)
[2023-11-14] MEDS: traMADol HCL 50 MG TABLET PO PRN (10:03)
[2023-11-14] MEDS: predniSONE 5 MG TABLET (UD) PO SCH (10:03)
[2023-11-14] MEDS: methylPREDNISolone NA SUCC 40 MG/1 ML VIAL IVPUSH SCH (10:03)
[2023-11-14] MEDS: MULTIVITAMINS (DAILY MVI) TABLET (FP) PO SCH (10:03)
[2023-11-14] MEDS: ZINC SULFATE 220 MG CAPSULE (FP) PO SCH (10:04)
[2023-11-14] MEDS: ASCORBIC ACID 500 MG TABLET (FP) PO SCH (10:04)
[2023-11-14] MEDS: PANTOPRAZOLE 40 MG TABLET PO SCH (10:04)
[2023-11-14] MEDS: AZITHROMYCIN IVPB 500 MG/250 ML BAG IVPB SCH (10:05)
[2023-11-14] MEDS: DULoxetine HCL 20 MG CAPSULE.DR PO SCH (10:08)
[2023-11-14] MEDS: CEFTRIAXONE 1 GM in DEXTROSE 5%-WATER - 50 ML IVPB SCH (10:08)
== END 2023-11-14 14:40 | disposition home or self-care (01) | DRG 177 ==
LOC: JER 12:57 → JERBED 15:34 → OBSVTOIN 15:57 → J6S 11-09 01:34
PROVIDERS: ADMIT Internal Medicine; ATTEND Internal Medicine
PROC: XW033E5 Introduction of Remdesivir Anti-infective into Peripheral Vein, Percutaneous Approach, New Technology Group 5 (ICD-10-PCS; principal; 2023-11-08)
DX: U07.1 COVID-19 (principal); E43 Unspecified severe protein-calorie malnutrition; J12.82 Pneumonia due to coronavirus disease 2019; L89.153 Pressure ulcer of sacral region, stage 3; J44.1 Chronic obstructive pulmonary disease with (acute) exacerbation; E87.1 Hypo-osmolality and hyponatremia; R64 Cachexia; Z68.1 Body mass index [BMI] 19.9 or less, adult; E11.51 Type 2 diabetes mellitus with diabetic peripheral angiopathy without gangrene; E03.9 Hypothyroidism, unspecified; M06.9 Rheumatoid arthritis, unspecified; E86.0 Dehydration; D50.9 Iron deficiency anemia, unspecified
CPT/HCPCS: 0241U-QW; 36415; 71045-TC-FY; 80048; 80053; 81003; 83540; 83550; 83735; 84443; 84466; 84484; 85025; 85045; 85610; 85651; 85730; 86140; 86431; 86850; 86900; 86901; 87040; 93005; 93010; 97161-GP; 99285-25; G0378; J0248; J1756

== ENCOUNTER 2024-06-20 18:08 | Inpatient (IN) | payer OTHER ==
[2024-06-20 19:10] LABS: HEMATOCRIT 26.5 % (32.4-45.2); HEMOGLOBIN 8.7 GM/dL (10.7-15.3); MCHC 32.8 g/dl (32.0-36.0); MEAN CELL VOLUME 82.4 fl (80-96); MEAN PLT VOLUME 7.8 fl (7.5-11.1); PLATELET COUNT 297 10^3/uL (134-434); RBC 3.22 M/mm3 (3.60-5.2); RDW 14.4 % (11.6-15.6); WHITE BLOOD COUNT 9.5 K/mm3 (4.0-10.0)
[2024-06-20] MEDS ORDERED: ACETAMINOPHEN INJECTION 100 ML ONE (19:11)
[2024-06-20] MEDS ORDERED: CEFTRIAXONE 1 GM/50 ML BAG ONE (19:11)
[2024-06-20] MEDS: ACETAMINOPHEN 1000 MG/100 ML BAG IVPB ONE (19:15)
[2024-06-20 19:17] LABS: INR 1.22 (0.83-1.09)
[2024-06-20 19:20] LABS: ACTIVATED PTT 29.2 SECONDS (25.2-36.5)
[2024-06-20] MEDS: CEFTRIAXONE 1,000 MG in DEXTROSE 5%-WATER - 50 ML IVPB ONE (19:27)
[2024-06-20 19:31] LABS: POTASSIUM 4.1 mmol/L (3.5-5.1)
[2024-06-20 19:35] LABS: ALBUMIN 2.2 g/dl (3.4-5.0); BLOOD UREA NITROGEN 65.7 mg/dL (7-18); CALCIUM 7.8 mg/dL (8.5-10.1); EPI CELLS 9 /uL (0-25.1); HYALINE CASTS 3 /uL (0-3.1); PH,URINE 5.5 (5.0-8.0); URINE APPEARANCE CLEAR; URINE BACTERIA 6 /uL (0-1359); URINE BILIRUBIN NEGATIVE (NEGATIVE); URINE COLOR DK YELLOW; URINE GLUCOSE (UA) NEGATIVE (NEGATIVE); URINE KETONE TRACE (NEGATIVE); URINE LEUK ESTERASE NEGATIVE (NEGATIVE); URINE NITRITE NEGATIVE (NEGATIVE); URINE PROTEIN 2+ (NEGATIVE); URINE UROBILINOGEN 0.2 mg/dL (0.2-1.0); URINE WBC 21 /uL (0-25.8)
[2024-06-20 19:39] LABS: ANISOCYTOSIS 0; BILIRUBIN,TOTAL 0.7 mg/dL (0.2-1); CREATININE 1.6 mg/dL (0.55-1.3); HELMET CELLS 0; HOWELL-JOLLY BODIES 0; MACROCYTOSIS 0; OVALOCYTE 0; ROULEAU 0; SICKELED CELLS 0; TARGET CELLS 0; TEAR DROP CELLS 0; TOT PROT 6.1 g/dl (6.4-8.2); TOXIC GRANULATION 0
[2024-06-20] MEDS: LINEZOLID 600 MG PREMIX BAG 600 MG in PREMIX 300 IVPB ONE (19:50)
[2024-06-20] MEDS: LACTATED RINGERS SOLUTION 1000 ML INFUS.BAG IV ONE (19:50)
[2024-06-20 19:54] LABS: VENOUS O2 SATURATION 56.9 % (70-80); VENOUS PCO2 37.2 mmHg (38-52); VENOUS PH 7.296 (7.310-7.410)
[2024-06-20 19:58] LABS: LACTIC ACID 3.9 mmol/L (0.4-2.0)
[2024-06-20 20:01] LABS: URINE RBC 330 /uL (0-23.9); YEAST NONE SEEN (NEGATIVE)
[2024-06-20] MEDS: SODIUM CHLORIDE 0.9% 500 ML INFUS.BAG IV ONE (20:59)
[2024-06-20] MEDS ORDERED: NOREPINEPHRINE 0.9 % NACL 8 MG/250 ML BAG IVPB ONE (21:33)
[2024-06-20] MEDS ORDERED: BACITRACIN ZINC 15 GM TUBE TOPICAL OINTMENT ONE (21:54)
[2024-06-20] MEDS ORDERED: NOREPINEPHRINE BITARTRATE 4 MG/4 ML ML IV ONE (22:02)
[2024-06-20] MEDS: NOREPINEPHRINE BITARTRATE 4,000 MCG in DEXTROSE 5%-WATER - 496 ML IV SCH (22:11)
[2024-06-20] MEDS ORDERED: BACITRACIN 0.9 GM PACKET ONE (22:58)
[2024-06-20] MEDS ORDERED: morphine SULFATE 4 MG/ML VIAL ONE (23:09)
[2024-06-20] MEDS: morphine CARPU-JECT 2 MG/1 ML DISP.SYRIN IVPUSH ONE (23:12)
[2024-06-20] MEDS ORDERED: FENTANYL CITRATE/PF 50 MCG/ML VIAL ONE (23:13)
[2024-06-20] MEDS: BACITRACIN 0.9 GM PACKET TP ONE (23:23)
[2024-06-20] MEDS: LACTATED RINGERS SOLUTION 1,000 ML/1,000 ML INFUS.BAG IV SCH (23:23)
[2024-06-20] MEDS: MUPIROCIN 2% TOPICAL OINTMENT FOR DECOLONIZATION NS SCH (23:30)
[2024-06-21] MEDS ORDERED: fentaNYL CITRATE 250 MCG/5 ML VIAL ONE (00:31)
[2024-06-21] MEDS: ACETAMINOPHEN 1000 MG/100 ML BAG IVPB PRN (00:34)
[2024-06-21] MEDS: CALCIUM GLUCONATE IN NACL 1 GM/50 ML BAG IVPB ONE (00:35)
[2024-06-21] MEDS: HYDROCORTISONE SOD SUCCINATE 100 MG/2 ML VIAL IVPB SCH (00:36)
[2024-06-21] MEDS: HEPARIN NA (PORCINE) 5,000 UNITS/ML 1ML VIAL SQ SCH (00:39)
[2024-06-21 01:21] LABS: MAGNESIUM 1.9 mg/dL (1.8-2.4)
[2024-06-21 01:26] LABS: PHOSPHOROUS 3.5 mg/dL (2.5-4.9)
[2024-06-21] MEDS: HYDROmorphone HCl 2 MG/ML VIAL IVPUSH SCH (02:08)
[2024-06-21] MEDS ORDERED: ALBUTEROL SO4 2.5/IPRATROPIUM 0.5 INH SOL 3 ML VIAL.NEB. NEB PRN (02:33)
[2024-06-21 02:36] LABS: LACTIC ACID 2.2 mmol/L (0.4-2.0)
[2024-06-21] MEDS: AZITHROMYCIN IVPB 500 MG/250 ML BAG IVPB SCH (06:13)
[2024-06-21] MEDS: VASopressin 40 UNITS/100 ML BAG IV SCH (06:14)
[2024-06-21] MEDS: PIPERACILLIN/TAZOB 2.25 GM 2.25 GM in DEXTROSE 5%-WATER - 50 ML IVPB SCH (06:20)
[2024-06-21 07:45] LABS: POTASSIUM 3.9 mmol/L (3.5-5.1)
[2024-06-21 07:49] LABS: ALBUMIN 1.8 g/dl (3.4-5.0); BLOOD UREA NITROGEN 52.6 mg/dL (7-18); CALCIUM 7.7 mg/dL (8.5-10.1); MAGNESIUM 1.7 mg/dL (1.8-2.4)
[2024-06-21 07:51] LABS: CREATININE 1.2 mg/dL (0.55-1.3); PHOSPHOROUS 3.8 mg/dL (2.5-4.9)
[2024-06-21 07:52] LABS: BILIRUBIN,TOTAL 0.6 mg/dL (0.2-1); TOT PROT 5.2 g/dl (6.4-8.2)
[2024-06-21 07:53] LABS: N-TERMINAL BNP 17828.5 pg/ml (5-450)
[2024-06-21] MEDS ORDERED: HYDROmorphone HCl 2 MG/ML VIAL IVPUSH PRN (08:08)
[2024-06-21 08:13] LABS: INR 1.28 (0.83-1.09); PROTHROMBIN TIME (PATIENT) 14.4 SEC (9.7-13.0)
[2024-06-21 08:26] LABS: HEMATOCRIT 24.2 % (32.4-45.2); HEMOGLOBIN 7.9 GM/dL (10.7-15.3); MCH 27.2 pg (25.7-33.7); MCHC 32.8 g/dl (32.0-36.0); MEAN CELL VOLUME 82.8 fl (80-96); MEAN PLT VOLUME 7.8 fl (7.5-11.1); PLATELET COUNT 271 10^3/uL (134-434); RBC 2.92 M/mm3 (3.60-5.2); RDW 14.6 % (11.6-15.6); RETICULOCYTES 1.25 % (0.5-1.5); WHITE BLOOD COUNT 10.9 K/mm3 (4.0-10.0)
[2024-06-21] MEDS: LEVOTHYROXINE SODIUM 100 MCG 5 ML VIAL IVPUSH SCH (09:14)
[2024-06-21] MEDS: LINEZOLID 600 MG PREMIX BAG 600 MG/300 ML BAG IVPB SCH (09:14)
[2024-06-21] MEDS: POLYETHYLENE GLYCOL (HEALTHYLAX) 3350 17 GM PACKET PO SCH (09:23)
[2024-06-21 09:37] LABS: ANISOCYTOSIS 0; HELMET CELLS 0; HOWELL-JOLLY BODIES 0; MACROCYTOSIS 0; OVALOCYTE 0; ROULEAU 0; SICKELED CELLS 0; TARGET CELLS 0; TEAR DROP CELLS 0; TOXIC GRANULATION 0
[2024-06-21] MEDS ORDERED: VASopressin 20 UNITS/ML VIAL IV ONE (09:37)
[2024-06-21] MEDS ORDERED: PANTOPRAZOLE 40 MG TABLET PO SCH (10:00)
[2024-06-21] MEDS ORDERED: LEVOTHYROXINE SODIUM 100 MCG 5 ML VIAL IVPUSH SCH (10:00)
[2024-06-21] MEDS: PANTOPRAZOLE SODIUM 40 MG VIAL IVPUSH SCH (10:41)
[2024-06-21] MEDS: MAGNESIUM 1GM/D5W - 1 GM/100 ML IVPB IVPB ONE (10:57)
[2024-06-21] MEDS: INSULIN ASPART SLIDING SCALE (NOVOLOG) 1 VIAL SQ SCH (11:36)
[2024-06-21 12:35] VITALS: BMI 19.3
[2024-06-21 15:10] VITALS: TEMP 96.2
[2024-06-21] MEDS: MORPHINE 100 MG/100 ML MG IVPB SCH (16:07)
[2024-06-21 16:48] VITALS: BP 101/52; RESP 10
[2024-06-21] MEDS: LEVOTHYROXINE NA 25 MCG TABLET (FP) PO SCH (19:21)
[2024-06-21] MEDS ORDERED: CHLORHEXIDINE GLUCONATE 4% CLEANSER FOR DECOLONIZATION TP SCH (22:00)
[2024-06-22] MEDS ORDERED: PIPERACILLIN/TAZOB 2.25 GM 2.25 GM in DEXTROSE 5%-WATER - 50 ML IVPB SCH (03:00)
[2024-06-22] MEDS ORDERED: LINEZOLID 600 MG PREMIX BAG 600 MG/300 ML BAG IVPB SCH (10:00)
[2024-06-22 22:57] VITALS: PULSE 54
== END 2024-06-23 07:30 | disposition expired | DRG 871 ==
LOC: JER 18:08 → JERBED 18:49 → JICU 06-21 00:19
PROVIDERS: ADMIT Internal Medicine Pulmonary Disease; ATTEND Internal Medicine Pulmonary Disease
PROC: 05HM33Z Insertion of Infusion Device into Right Internal Jugular Vein, Percutaneous Approach (ICD-10-PCS; principal; 2024-06-20)
PROC: B543ZZA Ultrasonography of Right Jugular Veins, Guidance (ICD-10-PCS; 2024-06-20)
DX: A41.9 Sepsis, unspecified organism (principal); G92.8 Other toxic encephalopathy; L89.154 Pressure ulcer of sacral region, stage 4; R65.21 Severe sepsis with septic shock; J96.01 Acute respiratory failure with hypoxia; J18.9 Pneumonia, unspecified organism; E87.20 Acidosis, unspecified; N17.9 Acute kidney failure, unspecified; E87.1 Hypo-osmolality and hyponatremia; L03.312 Cellulitis of back [any part except buttock and flank]; J44.9 Chronic obstructive pulmonary disease, unspecified; E11.9 Type 2 diabetes mellitus without complications; E78.5 Hyperlipidemia, unspecified; I10 Essential (primary) hypertension; M06.9 Rheumatoid arthritis, unspecified; E11.51 Type 2 diabetes mellitus with diabetic peripheral angiopathy without gangrene; Q66.89 Other specified congenital deformities of feet; M35.3 Polymyalgia rheumatica; D64.9 Anemia, unspecified; E03.9 Hypothyroidism, unspecified
CPT/HCPCS: 0241U-QW; 36415; 70450-TC; 71045-TC-FY; 71250-TC; 72170-TC-FY; 74176-TC; 80053; 81003; 82308; 82436; 82570; 82728; 82747; 82803; 82962; 83036; 83540; 83550; 83605; 83735; 83880; 83930; 84100; 84133; 84300; 84436; 84443; 84466; 84479; 84484; 84540; 85014; 85025; 85045; 85610; 85730; 86140; 86850; 86900; 86901; 87040; 87077; 87086; 87186; 93005; 93010; 99291; J0131; J1644; J3490